=== PATIENT | female | born 1960 | race Caucasian/White ===

== ENCOUNTER → 2017-06-10 12:13 | Outpatient (CLI) | payer MEDICARE, SELFPAY | PROVIDERS: Visit Provider Family Medicine Geriatric Medicine | DX: I10 Essential (primary) hypertension (principal); E78.4 Other hyperlipidemia ==

== ENCOUNTER → 2018-02-03 11:54 | Outpatient (CLI) | payer MEDICARE, SELFPAY ==
--- NOTE | 2018-02-03 12:30 | RAD_ITS ---
STUDY: X-RAY - LUMBAR SPINE REASON FOR EXAM: Female, 57 years old. Low back pain TECHNIQUE: 3 view(s) of the lumbar spine were obtained. COMPARISON: None FINDINGS: Normal lumbar lordosis. There is no substantial scoliosis. There is a normal alignment of the vertebrae. Normal vertebral bodies and endplates. Normal disc space heights. The soft tissue structures are unremarkable. RAD/Lumbar Spine 2 or 3 Views IMPRESSION: Normal x-ray examination of the lumbar spine. Electronically Signed: Alonso Moncada MD at 23:55 EST , Service support ,
== END ==
PROVIDERS: Family Provider Family Medicine Geriatric Medicine; PCP Family Medicine Geriatric Medicine; Referring Provider Anesthesiology Pain Medicine; Visit Provider Anesthesiology Pain Medicine
DX: M54.5 Low back pain (principal)
CPT/HCPCS: 72100

== ENCOUNTER → 2018-03-31 10:31 | Outpatient (CLI) | payer MEDICARE, SELFPAY ==
[2018-03-31 11:14] LABS: Absolute Lymphocyte Count 4.19 X10^3/ul (0.83-4.51); Absolute Neutrophil Count 10.5 X10^3/uL (2.0-7.7); Basophil# 0.02 X10^3/uL; Basophil% 0.1 % (0-1); Eosinophil# 0.04 X10^3/uL; Eosinophils% 0.3 % (0-5); Hematocrit 42.3 % (37-47); Hemoglobin 13.2 g/dl (12.0-15.0); Lymphocyte # 4.19 X10^3/ul (4.0); Lymphocyte % 26.5 % (19-41); Mean Corp Hgb Conc 31.2 g/gl (32-36); Mean Corpuscular Volume 89.8 fL (81-99); Mean Platelet Vol. 9.7 fl (6.2-12.0); Monocyte# 1.03 X10^3/uL; Monocyte% 6.5 % (0-10); Neutrophil # 10.49 X10^3/uL (2.7-7.7); Neutrophil % 66.2 % (47-70); Platelet Count 327 K/mm3 (150-450); Red Blood Count 4.71 M/mm3 (4.2-5.4); White Blood Count 15.8 K/mm3 (4.4-11.0)
[2018-03-31 11:15] LABS: POSITIVE COUNT NO; POSITIVE DIFFERENTIAL NO; POSITIVE MORPHOLOGY NO
[2018-03-31 12:02] LABS: ALB/GLOB Ratio 0.8 RATIO (0.9-2.4); AST(SGOT) 18 U/L (15-37); Alanine Aminotransfer ALT/SGPT 36 U/L (13-56); Albumin, Serum 3.3 g/dL (3.2-5.0); Alkaline Phosphatase 97 U/L (45-117); Anion Gap 6 (5-15); BUN 10 mg/dL (7-18); BUN/Creat Ratio 13.2 RATIO (10-20); Calcium,Total 8.7 mg/dL (8.5-10.1); Chloride 105 mmol/L (98-107); Creatinine, Serum 0.76 mg/dL (0.55-1.02); EST Glomerular Filtration Rate 84 mL/min (>60); Est Glom Filt Rate - Afr Amer 101 mL/min (>60); Globulin 4.1 g/dL (2.2-4.2); Glucose 91 mg/dL (74-106); Potassium 3.5 mmol/L (3.5-5.1); Protein, Total 7.4 g/dL (6.4-8.2); Sodium Level 143 mmol/L (136-145); Thyroid Stim Hormone (TSH) 1.73 uIU/mL (0.358-3.74)
== END ==
PROVIDERS: Family Provider Family Medicine Geriatric Medicine; PCP Family Medicine Geriatric Medicine; Referring Provider Family Medicine Geriatric Medicine; Visit Provider Family Medicine Geriatric Medicine
DX: R07.9 Chest pain, unspecified (principal); R53.83 Other fatigue
CPT/HCPCS: 36415; 80053; 84443; 85025

== ENCOUNTER → 2018-05-03 09:49 | Outpatient (CLI) | payer MEDICARE, SELFPAY ==
[2016-07-03 10:56] VITALS: BMI 50.8
[2018-05-03 10:39] LABS: Amphetamine Urine VISTA NEGATIVE (<1000 ng/mL); Barbiturate Urine VISTA NEGATIVE (< 200 ng/mL); Benzodiazepine Urine VISTA NEGATIVE (< 200 ng/mL); Cocaine Urine VISTA NEGATIVE (< 300 ng/mL); Ecstacy Urine VISTA NEGATIVE (< 500 ng/mL); Methadone Urine VISTA NEGATIVE (< 300 ng/mL); PCP Urine VISTA NEGATIVE (< 25 ng/mL); THC Urine VISTA NEGATIVE (< 50 ng/mL); Vista UDS pH Range 6
[2018-05-04 10:37] LABS: Cancer Antigen 125 13.4 U/mL (0.0-38.1)
== END ==
PROVIDERS: Family Provider Family Medicine Geriatric Medicine; PCP Family Medicine Geriatric Medicine
DX: D39.10 Neoplasm of uncertain behavior of unspecified ovary (principal); F11.20 Opioid dependence, uncomplicated
CPT/HCPCS: 36415; 80307; 86304

== ENCOUNTER 2018-07-13 10:13 | Observation (INO) | payer MEDICARE, SELFPAY ==
[2018-07-13] VITALS (19 sets, daily range): BP systolic 126–170; BP diastolic 60–97; PULSE 68–111; RESP 12–18; TEMP 36.3–37.1; O2SAT 94–99; BMI 40.6; BMI 51.0
--- NOTE | 2018-07-13 10:26 | EKG12_ITS ---
Test Reason : CP ADMISSION EKG Blood Pressure : / mmHG Vent. Rate : 087 BPM Atrial Rate : 087 BPM P-R Int : 140 ms QRS Dur : 078 ms QT Int : 384 ms P-R-T Axes : 053 -33 051 degrees QTc Int : 462 ms Sinus rhythm with Premature atrial complexes with Aberrant conduction Left axis deviation Abnormal ECG When compared with ECG of 13-JUL-2018 10:18, MANUAL COMPARISON REQUIRED, DATA IS UNCONFIRMED Confirmed by FREDI BARBA, ROBERT ([id number]), makeup editor GIULIANO AMES ([id number]) on 07/15/2018 9:51:35 AM Referred By: Александр Batista Confirmed By:ROBERT RAI MD
--- NOTE | 2018-07-13 10:37 | RAD_ITS ---
STUDY: X-RAY CHEST REASON FOR EXAM: Female, 58 years old. Chest pain. TECHNIQUE: Single AP portable view of the chest. COMPARISON: Comparison is made with prior study dated December 16, 2013. FINDINGS: EKG electrodes are seen. Measurements of pressure congestion. Mild CHF. There is no demonstrated pleural abnormality. Normal size heart. Normal mediastinum and ana. Normal visualized pulmonary arteries. Normal visualized aortic arch and descending thoracic aorta. Normal visualized thoracic spine. Normal visualized ribs, clavicles, and shoulders. There is no demonstrated abnormality of the visualized soft tissue structures of the upper abdomen. RAD/Chest 1 View (Portable) IMPRESSION: Vascular congestion and mild CHF. Electronically Signed: Bravo Weeks, at 11:11 EDT , Service support ,
[2018-07-13] MEDS: 0.9% Normal Saline 1,000 ML 150 ML IV (10:38)
[2018-07-13] MEDS: Aspirin 81 MG TAB.CHEW 324 MG PO (10:38)
[2018-07-13 11:17] LABS: Absolute Lymphocyte Count 3.44 X10^3/ul (0.83-4.51); Absolute Neutrophil Count 8.1 X10^3/uL (2.0-7.7); Basophil# 0.03 X10^3/uL; Basophil% 0.2 % (0-1); Eosinophil# 0.12 X10^3/uL; Hematocrit 45.7 % (37-47); Hemoglobin 15.1 g/dl (12.0-15.0); Lymphocyte # 3.44 X10^3/ul (4.0); Lymphocyte % 27.7 % (19-41); Mean Corpuscular Hgb 29.6 pg (27.0-32.0); Mean Corpuscular Volume 89.6 fL (81-99); Mean Platelet Vol. 9.8 fl (6.2-12.0); Monocyte# 0.71 X10^3/uL; Monocyte% 5.7 % (0-10); Neutrophil # 8.11 X10^3/uL (2.7-7.7); Neutrophil % 65.2 % (47-70); Platelet Count 340 K/mm3 (150-450); RBC Distribution Width SD 45.3 fl (35.1-43.9); White Blood Count 12.4 K/mm3 (4.4-11.0)
[2018-07-13 11:21] LABS: POSITIVE COUNT NO; POSITIVE DIFFERENTIAL NO; POSITIVE MORPHOLOGY NO
[2018-07-13 11:27] LABS: D-Dimer Quantitative (DVT/PE) 0.58 FEU/ug/m (0.27-0.49)
[2018-07-13 11:28] LABS: Anion Gap 3 (5-15); BUN 8 mg/dL (7-18); BUN/Creat Ratio 9.7 RATIO (10-20); Calcium,Total 9.3 mg/dL (8.5-10.1); Chloride 103 mmol/L (98-107); Creatinine, Serum 0.82 mg/dL (0.55-1.02); EST Glomerular Filtration Rate 76 mL/min (>60); Est Glom Filt Rate - Afr Amer 92 mL/min (>60); Estimated Creatinine Clearance 56.43 ml/min; Glucose 124 mg/dL (74-106); Potassium 3.4 mmol/L (3.5-5.1); Sodium Level 138 mmol/L (136-145)
--- NOTE | 2018-07-13 11:39 | ED.VISSUMM ---
- ER Visit Summary Date of Service: 07/13/18 Chief Complaint: [Chest pain History of Present Illness: The patient is a 58 F [presents to the emergency department complaint of chest pain that started about 2 weeks ago. Patient describes a intermittent pressure and and pinching. Patient describes pain in her left arm that radiates to the chest. Patient feels short of breath with it and nauseated. Patient complains of diaphoresis. The discomfort is not always exertional. Patient denies recent travel or surgery. She denies recent illness. She has a history of hypertension. Patient's father had an [place] in his 40s.] Physical Examination: [HEENT-PERRLA, EOMI. Cranial nerves II through XII grossly intact. TMs clear. Mucous membranes moist. No adenopathy. Cardiovascular-regular rate and rhythm without murmur or ectopy Lungs-clear to auscultation, chest wall stable without crepitus or subcu emphysema Abdomen-normoactive bowel sounds, soft, nontender, no rebound or rigidity, no peritoneal signs. Extremities-intact ?4, normal range of motion, normal pulses, atraumatic] Test Results: [EKG obtained shows sinus rhythm with a ventricular rate of 106 bpm with no acute I segment changes. Patient had an occasional PAC. CBC with differential count 12.4, hemoglobin 15, hematocrit 46, platelets 340. Chemistries unremarkable. Troponin was less than 0.015. D-dimer was 0.58 which when corrected for patient's age is considered normal. Except for a slightly depressed potassium at 3.4.] Emergency Department Course and Treatment: [Patient received aspirin and her pain. Patient had an inch of Nitropaste placed to the anterior chest wall. ] Treatment Plan: [Admit for further workup and evaluation of her chest pain] Disposition: [Admit] Impression: [Chest pain-rule out acute coronary syndrome] This note was generated with [employer] dictation software. It may contain incorrect words, spelling, and punctuation that were not noted in review of the chart prior to signing ED Disposition - Plan for ED Patient: Referrals: Toan Moore Chi, MD [Primary Care Provider] -
--- NOTE | 2018-07-13 11:43 | ED.DCSUM_ITS ---
- ER Visit Summary Date of Service: 07/13/18 Chief Complaint: [Chest pain History of Present Illness: The patient is a 58 F [presents to the emergency department complaint of chest pain that started about 2 weeks ago. Patient describes a intermittent pressure and and pinching. Patient describes pain in her left arm that radiates to the chest. Patient feels short of breath with it and nauseated. Patient complains of diaphoresis. The discomfort is not always exertional. Patient denies recent travel or surgery. She denies recent illness. She has a history of hypertension. Patient's father had an [place] in his 40s.] Physical Examination: [HEENT-PERRLA, EOMI. Cranial nerves II through XII grossly intact. TMs clear. Mucous membranes moist. No adenopathy. Cardiovascular-regular rate and rhythm without murmur or ectopy Lungs-clear to auscultation, chest wall stable without crepitus or subcu emphysema Abdomen-normoactive bowel sounds, soft, nontender, no rebound or rigidity, no peritoneal signs. Extremities-intact ?4, normal range of motion, normal pulses, atraumatic] Test Results: [EKG obtained shows sinus rhythm with a ventricular rate of 106 bpm with no acute I segment changes. Patient had an occasional PAC. CBC with differential count 12.4, hemoglobin 15, hematocrit 46, platelets 340. Chemistries unremarkable. Troponin was less than 0.015. D-dimer was 0.58 which when corrected for patient's age is considered normal. Except for a slightly depressed potassium at 3.4.] Emergency Department Course and Treatment: [Patient received aspirin and her pain. Patient had an inch of Nitropaste placed to the anterior chest wall. ] Treatment Plan: [Admit for further workup and evaluation of her chest pain] Disposition: [Admit] Impression: [Chest pain-rule out acute coronary syndrome] This note was generated with [employer] dictation software. It may contain incorrect words, spelling, and punctuation that were not noted in review of the chart prior to signing ED Disposition - Plan for ED Patient: Referrals: Toan Moore Chi, MD [Primary Care Provider] -
[2018-07-13] MEDS: Nitroglycerin Oint 1 INCH PACKET TRANSDERM. (12:11)
--- NOTE | 2018-07-13 12:24 | CASEMGMT ---
RN CM Assessment Introduced role of RN CM to patient.? Patient is alert, oriented and able?to participate in RN CM Assessment. ?Care providers, pharmacy, and demographics verified. Presentation: Chest Pain Admit Dx: CP Re-Admit: No Barriers/Issues: None PCP: Toan Moore Chi Specialists: Pain Management- Dr Meza Preferred [facility]acy: [facility] Insurance: [employer] Medicare PPO Rx Benefit:?Yes ?LNOK: Reynaldo Mann LW/HPOA: No. States would like info from this admission. Living Arrangements:? Lives with in a Ranch Style Home, 5 steps to enter. ADL?s: Independent with ambulation and ADL's Transportation: Drives, will transport on DC DME: None HHC: None SNF: None Goal: Home DC PLAN: Home with no anticipated needs identified at this time. Joss Retana RNCM
--- NOTE | 2018-07-13 14:26 | EKG12_ITS ---
Test Reason : CP Blood Pressure : / mmHG Vent. Rate : 106 BPM Atrial Rate : 106 BPM P-R Int : 146 ms QRS Dur : 078 ms QT Int : 344 ms P-R-T Axes : 053 -29 059 degrees QTc Int : 456 ms Sinus tachycardia with Premature atrial complexes with Aberrant conduction Otherwise normal ECG Confirmed by FREDI BARBA, ROBERT ([id number]), video effects editor GIULIANO AMES ([id number]) on 07/15/2018 9:12:42 AM Referred By: Александр Batista Confirmed By:ROBERT RAI MD
--- NOTE | 2018-07-13 14:48 | PCM.HP.STD ---
Problem List (1) Chest pain Status: Acute Qualifiers: Chest pain type: unspecified Qualified Code(s): R07.9 - Chest pain, unspecified History of Present Illness Date of Admission: 07/13/18 Chief Complaint: chest pain The patient is a 58 year old F presents with several week history of chest pain. Chest pain tends to be more exertional. More left-sided going up her jaw and down her arm. It is associated with diaphoresis, shortness of breath and nausea. Patient is never had pain like this before. Patient was concerned and presented to the emergency room. In the emergency room, her workup was unremarkable. Patient being brought under observation for further cardiac evaluation. [] Past Medical History Medical History: Medical History (Last Updated 07/13/18 @ 14:49 by Александр Batista DO) Anxiety F41.9 HTN (hypertension) I10 Allergies amlodipine [From [facility]] Adverse Reaction (Verified 07/13/18 14:26) Other cough lisinopril Adverse Reaction (Verified 07/13/18 14:26) Other cough Home Medications: Ambulatory Orders Medication Instructions Recorded Cholecalciferol (Vitamin D3) 1,000 unit PO DAILY 12/16/13 [Vitamin D3] Losartan Potassium [Cozaar] 25 mg PO DAILY 12/16/13 [place]-3 Fatty Acids/Fish Oil [Fish 1 each PO DAILY 12/16/13 Oil 1,000 mg Capsule] Zolpidem Tartrate [Ambien] 10 mg PO QHS 07/03/16 Multivitamins,Therapeutic 1 tab PO DAILY 07/13/18 [Multivitamin] Paroxetine HCl 40 mg PO QHS 07/13/18 traMADol [Ultram] 50 mg PO BID PRN 07/13/18 Surgical History: no surgical history Psychiatric History: No pertinent psych hx RESIDENTIAL APPRAISER History: No pertinent RESIDENTIAL APPRAISER history, - - see HPI Smoking Status: Never smoker Tobacco Use: Non-smoker - *Family History Maternal History Items: Hypertension Review of Systems Constitutional: Reports: Malaise. Denies: Anorexia, Chills, Fever Eyes: Denies: Blurred vision, Double vision HEENT: Denies: Head Aches, Sinus Congestion, Sinus Drainage Cardiovascular: Reports: Chest Pain. Denies: Edema Respiratory: Reports: Shortness of breath upon exertion. Denies: Cough Gastrointestinal: Reports: Nausea. Denies: Abdominal Pain, Vomiting Genitourinary: Denies: Dysuria Musculoskeletal: Denies: Joint Pain, Joint Tenderness Skin: Denies: Rash, Wounds Neurological: Denies: Numbness, Tingling, Focal weakness Psychiatric: Denies: Anxiety, Depression Hematologic/ Lymphatic: Denies: Easy Bruising, Easy Bleeding, Hx of blood clot VTE Information - Inpt Only VTE Present on Admission: No VTE Mechan Device Prophylaxis: None VTE Pharm Prophylaxis ordered?: No Reason prophylaxis not ordered:: Procedure Not Indicated Patient Problems: Active and Suspected Problems Chest pain (Acute) - Physical Exam General: Alert, Cooperative, No apparent distress HEENT: Atraumatic, Normocephalic Oral: Moist Mucosa, No Gingival or Mucosal Lesions/ Ulcerations Neck: No Nodes, Thyroid Normal Size and Texture Lungs: Clear to auscultation, Normal air movement, No rhonchi, No wheeze Cardiovascular: Regular rate, Regular Rhythm, Normal S1, Normal S2, No murmurs Abdomen: Bowel Sounds Present, Soft, Non Tender, Non-Distended, No Hepato-splenomegaly Extremities: No edema, No Calf Tenderness Skin: No rashes, No breakdown Psych/Mental Status: Normal Affect, Appropriate Vital Signs Temp Pulse Resp BP Pulse Ox 37.1 C 78 16 144/77 H 96 07/13/18 14:21 07/13/18 14:21 07/13/18 14:21 07/13/18 14:21 07/13/18 14:21 Oxygen Flow Rate (L/min) 2 Oxygen Delivery Method Nasal Cannula Weight: 122.4 kg Body Mass Index (BMI) 51.0 Laboratory Tests Past 24 Hrs 07/13/18 07/13/18 07/13/18 10:20 10:20 10:20 WBC 12.4 H RBC 5.10 Hgb 15.1 H Hct 45.7 MCV 89.6 MCH 29.6 MCHC 33.0 RDW 14.0 RDW Differential 45.3 H Plt Count 340 MPV 9.8 Immature Gran % (Auto) 0.200 Neut % (Auto) 65.2 Lymph % (Auto) 27.7 [place] % (Auto) 5.7 Eos % (Auto) 1.0 Baso % (Auto) 0.2 Absolute Neuts (auto) 8.1 H Absolute Lymphs (auto) 3.44 Total Counted Not Reportable D-Dimer Quant (PE/DVT) 0.58 H* Sodium 138 Potassium 3.4 L Chloride 103 Carbon Dioxide 32.0 Anion Gap 3 L BUN 8 Creatinine 0.82 Estim Creat Clear Calc 56.43 Est GFR (MDRD) Af Amer 92 Est GFR (MDRD) Non-Af 76 BUN/Creatinine Ratio 9.7 L Glucose 124 H Calcium 9.3 Troponin I < 0.015 07/13/18 14:40 WBC RBC Hgb Hct MCV MCH MCHC RDW RDW Differential Plt Count MPV Immature Gran % (Auto) Neut % (Auto) Lymph % (Auto) [place] % (Auto) Eos % (Auto) Baso % (Auto) Absolute Neuts (auto) Absolute Lymphs (auto) Total Counted D-Dimer Quant (PE/DVT) Sodium Potassium Chloride Carbon Dioxide Anion Gap BUN Creatinine Estim Creat Clear Calc Est GFR (MDRD) Af Amer Est GFR (MDRD) Non-Af BUN/Creatinine Ratio Glucose Calcium Troponin I Pending Assessment/Plan All Active Problems Chest pain (Acute) Gynecologic disorder (Acute) Hypertension (Acute) 1. Chest pain Concern for cardiac etiology Cycle troponins and order stress test Aspirin based on the results of the stress test, patient will either be discharged home or cardiology will be consulted. 2. VTE prophylaxis: Low risk as patient is observation at this time. Therefore VTE prophylaxis not indicated. Code Visit OBSV E&M: 10261 Initial observation care L2
--- NOTE | 2018-07-13 14:52 | HP.PCM_ITS ---
Problem List (1) Chest pain Status: Acute Qualifiers: Chest pain type: unspecified Qualified Code(s): R07.9 - Chest pain, unspecified History of Present Illness Date of Admission: 07/13/18 Chief Complaint: chest pain The patient is a 58 year old F presents with several week history of chest pain. Chest pain tends to be more exertional. More left-sided going up her jaw and down her arm. It is associated with diaphoresis, shortness of breath and nausea. Patient is never had pain like this before. Patient was concerned and presented to the emergency room. In the emergency room, her workup was unremarkable. Patient being brought under observation for further cardiac evaluation. [] Past Medical History Medical History: Medical History (Last Updated 07/13/18 @ 14:49 by Александр Batista DO) Anxiety F41.9 HTN (hypertension) I10 Allergies amlodipine [From [facility]] Adverse Reaction (Verified 07/13/18 14:26) Other cough lisinopril Adverse Reaction (Verified 07/13/18 14:26) Other cough Home Medications: Ambulatory Orders Medication Instructions Recorded Cholecalciferol (Vitamin D3) 1,000 unit PO DAILY 12/16/13 [Vitamin D3] Losartan Potassium [Cozaar] 25 mg PO DAILY 12/16/13 [place]-3 Fatty Acids/Fish Oil [Fish 1 each PO DAILY 12/16/13 Oil 1,000 mg Capsule] Zolpidem Tartrate [Ambien] 10 mg PO QHS 07/03/16 Multivitamins,Therapeutic 1 tab PO DAILY 07/13/18 [Multivitamin] Paroxetine HCl 40 mg PO QHS 07/13/18 traMADol [Ultram] 50 mg PO BID PRN 07/13/18 Surgical History: no surgical history Psychiatric History: No pertinent psych hx 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 Denies: Anorexia, Chills, Fever Eyes: Denies: Blurred vision, Double vision HEENT: Denies: Head Aches, Sinus Congestion, Sinus Drainage Cardiovascular: Reports: Chest Pain. Denies: Edema Respiratory: Reports: Shortness of breath upon exertion. Denies: Cough Gastrointestinal: Reports: Nausea. Denies: Abdominal Pain, Vomiting Genitourinary: Denies: Dysuria Musculoskeletal: Denies: Joint Pain, Joint Tenderness Skin: Denies: Rash, Wounds Neurological: Denies: Numbness, Tingling, Focal weakness Psychiatric: Denies: Anxiety, Depression Hematologic/ Lymphatic: Denies: Easy Bruising, Easy Bleeding, Hx of blood clot VTE Information - Inpt Only VTE Present on Admission: No VTE Mechan Device Prophylaxis: None VTE Pharm Prophylaxis ordered?: No Reason prophylaxis not ordered:: Procedure Not Indicated Patient Problems: Active and Suspected Problems Chest pain (Acute) - Physical Exam General: Alert, Cooperative, No apparent distress HEENT: Atraumatic, Normocephalic Oral: Moist Mucosa, No Gingival or Mucosal Lesions/ Ulcerations Neck: No Nodes, Thyroid Normal Size and Texture Lungs: Clear to auscultation, Normal air movement, No rhonchi, No wheeze Cardiovascular: Regular rate, Regular Rhythm, Normal S1, Normal S2, No murmurs Abdomen: Bowel Sounds Present, Soft, Non Tender, Non-Distended, No Hepato- splenomegaly Extremities: No edema, No Calf Tenderness Skin: No rashes, No breakdown Psych/Mental Status: Normal Affect, Appropriate Vital Signs Temp Pulse Resp BP Pulse Ox 37.1 C 78 16 144/77 H 96 07/13/18 14:21 07/13/18 14:21 07/13/18 14:21 07/13/18 14:21 07/13/18 14:21 Oxygen Flow Rate (L/min) 2 Oxygen Delivery Method Nasal Cannula Weight: 122.4 kg Body Mass Index (BMI) 51.0 Laboratory Tests Past 24 Hrs 07/13/18 07/13/18 07/13/18 10:20 10:20 10:20 WBC 12.4 H RBC 5.10 Hgb 15.1 H Hct 45.7 MCV 89.6 MCH 29.6 MCHC 33.0 RDW 14.0 RDW Differential 45.3 H Plt Count 340 MPV 9.8 Immature Gran % (Auto) 0.200 Neut % (Auto) 65.2 Lymph % (Auto) 27.7 [place] % (Auto) 5.7 Eos % (Auto) 1.0 Baso % (Auto) 0.2 Absolute Neuts (auto) 8.1 H Absolute Lymphs (auto) 3.44 Total Counted Not Reportable D-Dimer Quant (PE/DVT) 0.58 H* Sodium 138 Potassium 3.4 L Chloride 103 Carbon Dioxide 32.0 Anion Gap 3 L BUN 8 Creatinine 0.82 Estim Creat Clear Calc 56.43 Est GFR (MDRD) Af Amer 92 Est GFR (MDRD) Non-Af 76 BUN/Creatinine Ratio 9.7 L Glucose 124 H Calcium 9.3 Troponin I < 0.015 07/13/18 14:40 WBC RBC Hgb Hct MCV MCH MCHC RDW RDW Differential Plt Count MPV Immature Gran % (Auto) Neut % (Auto) Lymph % (Auto) [place] % (Auto) Eos % (Auto) Baso % (Auto) Absolute Neuts (auto) Absolute Lymphs (auto) Total Counted D-Dimer Quant (PE/DVT) Sodium Potassium Chloride Carbon Dioxide Anion Gap BUN Creatinine Estim Creat Clear Calc Est GFR (MDRD) Af Amer Est GFR (MDRD) Non-Af BUN/Creatinine Ratio Glucose Calcium Troponin I Pending Assessment/Plan All Active Problems Chest pain (Acute) Gynecologic disorder (Acute) Hypertension (Acute) 1. Chest pain * Concern for cardiac etiology * Cycle troponins and order stress test * Aspirin * based on the results of the stress test, patient will either be discharged home or cardiology will be consulted. 2. VTE prophylaxis: Low risk as patient is observation at this time. Therefore VTE prophylaxis not indicated. Code Visit OBSV E&M: 63289 Initial observation care L2
[2018-07-13] MEDS: Acetaminophen 325 MG Tablet 650 MG PO (16:04)
[2018-07-13] MEDS: traMADol 50 MG Tablet PO (17:06)
--- NOTE | 2018-07-13 18:08 | NURSING ---
1600-agree with admission assessment and charting by kirstin osuna
[2018-07-13] MEDS: Paroxetine 20 MG Tablet 40 MG PO (20:42)
[2018-07-13] MEDS: Zolpidem Tartrate 5 MG Tablet PO (20:42)
[2018-07-14 02:35] VITALS: BP 124/80; PULSE 78; RESP 16; TEMP 36.7; O2SAT 95
[2018-07-14 03:02] VITALS: PULSE 74
[2018-07-14 05:39] LABS: Absolute Lymphocyte Count 2.52 X10^3/ul (0.83-4.51); Absolute Neutrophil Count 5.3 X10^3/uL (2.0-7.7); Basophil# 0.02 X10^3/uL; Basophil% 0.2 % (0-1); Eosinophil# 0.08 X10^3/uL; Eosinophils% 0.9 % (0-5); Hematocrit 42.4 % (37-47); Hemoglobin 13.5 g/dl (12.0-15.0); Lymphocyte # 2.52 X10^3/ul (4.0); Lymphocyte % 29.9 % (19-41); Mean Corp Hgb Conc 31.8 g/gl (32-36); Mean Corpuscular Hgb 28.1 pg (27.0-32.0); Mean Corpuscular Volume 88.1 fL (81-99); Mean Platelet Vol. 9.7 fl (6.2-12.0); Monocyte# 0.52 X10^3/uL; Monocyte% 6.2 % (0-10); Neutrophil # 5.29 X10^3/uL (2.7-7.7); Neutrophil % 62.7 % (47-70); Platelet Count 284 K/mm3 (150-450); RBC Distribution Width CV 14.1 % (11.6-14.6); RBC Distribution Width SD 45.6 fl (35.1-43.9); Red Blood Count 4.81 M/mm3 (4.2-5.4); White Blood Count 8.4 K/mm3 (4.4-11.0)
[2018-07-14 05:43] LABS: POSITIVE COUNT NO; POSITIVE DIFFERENTIAL NO; POSITIVE MORPHOLOGY NO
[2018-07-14 05:48] LABS: Prothrombin Time (Protime)PT. 13.3 SECONDS (11.7-14.9)
[2018-07-14 05:49] LABS: Partial Thromboplast Time 35.2 Seconds (24.1-36.2)
[2018-07-14 05:54] LABS: Anion Gap 3 (5-15); BUN 11 mg/dL (7-18); BUN/Creat Ratio 14.1 RATIO (10-20); Calcium,Total 8.6 mg/dL (8.5-10.1); Chloride 104 mmol/L (98-107); Cholesterol 176 mg/dL (200); Creatinine, Serum 0.78 mg/dL (0.55-1.02); EST Glomerular Filtration Rate 81 mL/min (>60); Est Glom Filt Rate - Afr Amer 97 mL/min (>60); Estimated Creatinine Clearance 59.32 ml/min; Glucose 103 mg/dL (74-106); High Density Lipoprotein 53 mg/dL; Potassium 3.9 mmol/L (3.5-5.1); Sodium Level 139 mmol/L (136-145); Triglycerides 104 mg/dL; Very Low Density Lipoprotein 21 mg/dL (5-40)
--- NOTE | 2018-07-14 05:55 | EKG12_ITS ---
Test Reason : Blood Pressure : / mmHG Vent. Rate : 080 BPM Atrial Rate : 080 BPM P-R Int : 142 ms QRS Dur : 080 ms QT Int : 406 ms P-R-T Axes : 056 -29 056 degrees QTc Int : 468 ms Sinus rhythm with Premature atrial complexes with Aberrant conduction Otherwise normal ECG When compared with ECG of 13-JUL-2018 14:50, MANUAL COMPARISON REQUIRED, DATA IS UNCONFIRMED Confirmed by FREDI BARBA, ROBERT ([id number]), photo editor GIULIANO AMES ([id number]) on 07/15/2018 9:40:07 AM Referred By: Александр Batista Confirmed By:ROBERT RAI MD
[2018-07-14 06:16] VITALS: BP 134/80; PULSE 79; RESP 16; TEMP 36.6; O2SAT 94
[2018-07-14] MEDS: 0.9% NaCl Peripheral Flush Adult/Peds IV (06:19)
[2018-07-14] MEDS: Losartan Potassium 25 MG Tablet PO ×2 (06:19)
[2018-07-14] MEDS: Aspirin E.C. 81 MG Tablet PO (06:22)
[2018-07-14 06:59] VITALS: PULSE 78
[2018-07-14 12:11] VITALS: PULSE 84
[2018-07-14 12:22] VITALS: BP 144/83; PULSE 83; RESP 16; TEMP 36.9; O2SAT 97
--- NOTE | 2018-07-14 13:37 | DCINST_ITS ---
- Discharge Diagnoses Current Active Problems: Current Active and Chronic Problems (Last Updated 07/13/18 @ 14:49 by Александр Batista DO) Chest pain (Acute) You will use the following diet at home:: No restrictions Your food should be the consistency of: Regular Discharge Activity: Return to Normal Activity Call your doctor if you observe: Fever of 101 or Higher, Shortness of breath, Dizziness, Fainting spells, Chest pain Instructions: ED Chest Pain NonCardiac Additional Instructions: check blood pressure twice daily and as needed, keep a record to present to your primary care provider. Allergies/Adverse Reactions: Allergies amlodipine [From [facility]] Adverse Reaction (Verified 07/13/18 14:26) Other cough lisinopril Adverse Reaction (Verified 07/13/18 14:26) Other cough Medications to take at Discharge Cholecalciferol (Vitamin D3) [Vitamin D3] 1,000 unit PO DAILY 12/16/13 Losartan Potassium [Cozaar] 25 mg PO DAILY 12/16/13 [place]-3 Fatty Acids/Fish Oil [Fish Oil 1,000 mg Capsule] 1 each PO DAILY 12/16/13 Zolpidem Tartrate [Ambien] 10 mg PO QHS 07/03/16 Multivitamins,Therapeutic [Multivitamin] 1 tab PO DAILY 07/13/18 Paroxetine HCl 40 mg PO QHS 07/13/18 traMADol [Ultram] 50 mg PO BID PRN 07/13/18 Primary Care Physician: Toan Moore Chi, MD [Primary Care Provider] - Within 2 Weeks Test Results: Test results from this visit will be discussed in further detail at your follow- up appointment, if applicable. Proposed Discharge Date: 07/14/18
--- NOTE | 2018-07-14 13:37 | PCM.DC.SUM ---
Discharge Date and Diagnosis - Problem List Patient Problems: Active and Suspected Problems (Last Updated 07/13/18 @ 14:49 by Александр Batista DO) Chest pain (Acute) Date of Admission: 07/13/18 Date of Discharge: 07/14/18 - Primary Discharge Diagnosis Active and Suspected Problems (Last Updated 07/13/18 @ 14:49 by Александр Batista DO) Chest pain (Acute) - Secondary Discharge Diagnosis Chronic Problems (Last Updated 07/13/18 @ 14:49 by Александр Batista DO) Hypertension (Chronic) Gynecologic disorder (Chronic) Hospital Course and Treatment Imaging Results: 07/14/18 05:55 Nuclear Stress Test - Chemical [NM] AM (NON MEDS) Operations: None Procedures: Stress test Summary of Care Provided: The patient is a 58 year old F presents with chest pain. Chest pain is left-sided and right upper neck and down her left arm. Vision was brought in and troponins cycled, which were negative, and a stress test which was also negative. She has been chest pain-free since arrival. Blood pressure was slightly elevated in the 170 systolic upon arrival. Unclear if this was a concerning factor to her chest pain or not but I advised patient to check her blood pressure twice daily at home and as needed and keep a record to provide to her PCP. No additional workup is necessary at this time. [] Patient Problems: Active and Suspected Problems (Last Updated 07/13/18 @ 14:49 by Александр Batista DO) Chest pain (Acute) - Physical Exam General: Alert, No apparent distress HEENT: Atraumatic, Normocephalic Oral: Moist Mucosa, No Gingival or Mucosal Lesions/ Ulcerations Psych/Mental Status: Normal Affect, Appropriate Vital Signs Temp Pulse Resp BP Pulse Ox 36.9 C 83 16 144/83 H 97 07/14/18 12:22 07/14/18 12:22 07/14/18 12:22 07/14/18 12:22 07/14/18 12:22 Oxygen Flow Rate (L/min) 2 Oxygen Delivery Method Room Air Weight: 122.4 kg Body Mass Index (BMI) 51.0 Intake and Output for Last 24 Hours 07/12/18 07/13/18 07/14/18 23:59 23:59 23:59 Intake Total 540 / 540 Balance 540 / 540 Laboratory Tests Past 24 Hrs 07/13/18 07/13/18 07/14/18 14:40 17:31 05:20 WBC 8.4 RBC 4.81 Hgb 13.5 Hct 42.4 MCV 88.1 MCH 28.1 MCHC 31.8 L RDW 14.1 RDW Differential 45.6 H Plt Count 284 MPV 9.7 Immature Gran % (Auto) 0.100 Neut % (Auto) 62.7 Lymph % (Auto) 29.9 [place] % (Auto) 6.2 Eos % (Auto) 0.9 Baso % (Auto) 0.2 Absolute Neuts (auto) 5.3 Absolute Lymphs (auto) 2.52 Total Counted Not Reportable PT INR APTT Sodium Potassium Chloride Carbon Dioxide Anion Gap BUN Creatinine Estim Creat Clear Calc Est GFR (MDRD) Af Amer Est GFR (MDRD) Non-Af BUN/Creatinine Ratio Glucose Calcium Troponin I < 0.015 < 0.015 Triglycerides Cholesterol LDL Cholesterol VLDL Cholesterol HDL Cholesterol 07/14/18 07/14/18 05:20 05:20 WBC RBC Hgb Hct MCV MCH MCHC RDW RDW Differential Plt Count MPV Immature Gran % (Auto) Neut % (Auto) Lymph % (Auto) [place] % (Auto) Eos % (Auto) Baso % (Auto) Absolute Neuts (auto) Absolute Lymphs (auto) Total Counted PT 13.3 INR 1.0 APTT 35.2 Sodium 139 Potassium 3.9 Chloride 104 Carbon Dioxide 32.0 Anion Gap 3 L BUN 11 Creatinine 0.78 Estim Creat Clear Calc 59.32 Est GFR (MDRD) Af Amer 97 Est GFR (MDRD) Non-Af 81 BUN/Creatinine Ratio 14.1 Glucose 103 Calcium 8.6 Troponin I Triglycerides 104 Cholesterol 176 LDL Cholesterol 102 VLDL Cholesterol 21 HDL Cholesterol 53 Discharge Diet: No Restrictions Discharge Activity: Return to Normal Activity Call your doctor if you observe: Fever of 101 or Higher, Shortness of breath, Dizziness, Fainting spells, Chest pain Home Medications: Medications to take at Discharge Cholecalciferol (Vitamin D3) [Vitamin D3] 1,000 unit PO DAILY 12/16/13 Losartan Potassium [Cozaar] 25 mg PO DAILY 12/16/13 [place]-3 Fatty Acids/Fish Oil [Fish Oil 1,000 mg Capsule] 1 each PO DAILY 12/16/13 Zolpidem Tartrate [Ambien] 10 mg PO QHS 07/03/16 Multivitamins,Therapeutic [Multivitamin] 1 tab PO DAILY 07/13/18 Paroxetine HCl 40 mg PO QHS 07/13/18 traMADol [Ultram] 50 mg PO BID PRN 07/13/18 Primary Care Physician: Toan Moore Chi, MD [Primary Care Provider] - Within 2 Weeks Patient Instructions: ED Chest Pain NonCardiac Disposition: Home Minutes spent on discharge:: 24 Patient Condition:: Good Medical Necessity - Tobacco Use Smoking Status: Never smoker Tobacco Use: Non-smoker Meaningful Use Info Meaningful Use Diagnoses (Choose all that apply): None applicable Code Visit OBSV E&M: 43229 Observation care discharge
--- NOTE | 2018-07-14 19:09 | STRESSREP_ITS ---
Stress Test Report Pharmacologic myocardial perfusion stress test. 58-year-old lady with a history of chest pain. Stress protocol: Resting EKG demonstrates normal sinus rhythm with a rate of 88 bpm normal intervals are noted resting blood pressure 132/90 mmHg. 0.4 mg of regadenoson was infused per usual protocol followed by rapid intravenous saline flush injection continuous EKG monitoring was performed. The maximum heart rate was 116 bpm which was 71% of maximum predicted heart rate the maximum workload was 1 metabolic equivalent. At rest there were no ST or T wave changes noted suggest ischemia at peak infusion nonspecific ST-T wave changes were noted with no meet the criteria for ischemia. No clinical angina was noted. The resting blood pr essure 132/90 mmHg with a final blood pressure 148/84 mmHg. Myocardial perfusion protocol. 12.0 mCi of technetium 99m sestamibi was injected at rest. 0.4 mg of regadenoson was infused per usual protocol peak infusion 35.9 mCi of technetium 99m sestamibi was injected stress images were obtained stress and rest images were reconstructed and compared in the short axis vertical long horizontal long axis. Gated images were also obtained. Perfusion SPECT analysis: Review of the stress images demonstrated normal perfusion noted in all areas of myocardium except for a tiny portion of the apex which was present on the stress and rest images to a nearly similar extent suggestive of apical striping rather than ischemia. The gated ejection fraction was noted to be 71%. Conclusion: Normal pharmacologic myocardial perfusion stress test. Preserved ejection fraction.
== END 2018-07-14 13:37 | disposition home or self-care (01) ==
LOC: ED 11:14 → PCU 13:17
PROVIDERS: Emergency Provider Emergency Medicine; Family Provider Family Medicine Geriatric Medicine; PCP Family Medicine Geriatric Medicine
DX: R07.89 Other chest pain (principal); R06.02 Shortness of breath; R11.0 Nausea; I10 Essential (primary) hypertension; Z82.49 Family history of ischemic heart disease and other diseases of the circulatory system; Z79.899 Other long term (current) drug therapy; F41.9 Anxiety disorder, unspecified
CPT/HCPCS: 36415; 71045; 78452; 80048; 80061; 84484; 85025; 85379; 85610; 85730; 93005; 93017; 96360; 96361; 99218; 99285; A9500; J7030; A4216; G0378; J2785

== ENCOUNTER → 2018-10-12 | Outpatient (CLI) | payer MEDICARE, SELFPAY ==
[2018-07-13 14:20] VITALS: BMI 51.0
[2018-10-12 12:43] LABS: Hemoglobin A1c 5.9 % (4.2-6.3)
[2018-10-12 12:47] LABS: Vitamin B12 1060 pg/mL (211-911)
[2018-10-12 12:51] LABS: AST(SGOT) 22 U/L (15-37); Alanine Aminotransfer ALT/SGPT 36 U/L (13-56); Albumin, Serum 3.4 g/dL (3.2-5.0); Alkaline Phosphatase 104 U/L (45-117); Bilirubin, Direct 0.08 mg/dL (0.00-0.30); Ferritin 70 ng/mL (8-252); Globulin 4.2 g/dL (2.2-4.2); Iron 57 ug/dL (50-170); Protein, Total 7.6 g/dL (6.4-8.2)
[2018-10-12 13:47] LABS: Iron Binding Capacity,Total 344 ug/dL (250-450); PERCENT IRON SATURATION 16.6 % (15.0-55.0)
[2018-10-15 11:14] LABS: Vitamin B1, Thiamine 183.6 nmol/L (66.5-200.0)
== END | disposition home or self-care (01) ==
PROVIDERS: Family Provider Family Medicine Geriatric Medicine; PCP Family Medicine Geriatric Medicine
DX: D39.10 Neoplasm of uncertain behavior of unspecified ovary (principal); E61.1 Iron deficiency; I10 Essential (primary) hypertension; E55.9 Vitamin D deficiency, unspecified; E51.9 Thiamine deficiency, unspecified; E53.8 Deficiency of other specified B group vitamins; R73.9 Hyperglycemia, unspecified
CPT/HCPCS: 36415; 80076; 82306; 82607; 82728; 83036; 83540; 83550; 84425; 86304

== ENCOUNTER → 2018-10-13 | Outpatient (CLI) | payer MEDICARE, SELFPAY ==
[2018-07-13 14:20] VITALS: BMI 51.0
[2018-10-13 12:23] LABS: Vitamin D,25 Hydroxy 29.6 ng/mL (29.95-100.01)
[2018-10-13 12:28] LABS: ALB/GLOB Ratio 0.8 RATIO (0.9-2.4); AST(SGOT) 22 U/L (15-37); Alanine Aminotransfer ALT/SGPT 40 U/L (13-56); Albumin, Serum 3.5 g/dL (3.2-5.0); Alkaline Phosphatase 105 U/L (45-117); Anion Gap 8 (5-15); BUN 12 mg/dL (7-18); BUN/Creat Ratio 14.8 RATIO (10-20); Calcium,Total 9.1 mg/dL (8.5-10.1); Chloride 103 mmol/L (98-107); Cholesterol 180 mg/dL (200); Creatinine, Serum 0.81 mg/dL (0.55-1.02); EST Glomerular Filtration Rate 77 mL/min (>60); Est Glom Filt Rate - Afr Amer 93 mL/min (>60); Globulin 4.4 g/dL (2.2-4.2); Glucose 110 mg/dL (74-106); High Density Lipoprotein 45 mg/dL; Potassium 3.6 mmol/L (3.5-5.1); Protein, Total 7.9 g/dL (6.4-8.2); Sodium Level 142 mmol/L (136-145); Thyroid Stim Hormone (TSH) 0.82 uIU/mL (0.358-3.74); Triglycerides 148 mg/dL; Very Low Density Lipoprotein 30 mg/dL (5-40)
[2018-10-13 12:42] LABS: Absolute Lymphocyte Count 2.47 X10^3/uL (0.83-4.51); Absolute Neutrophil Count 6.7 X10^3/uL (2.0-7.7); Basophil# 0.04 X10^3/uL; Basophil% 0.4 % (0-1); Hematocrit 44.4 % (37-47); Lymphocyte # 2.47 X10^3/ul (4.0); Lymphocyte % 24.7 % (19-41); Mean Corp Hgb Conc 31.5 g/dL (32-36); Mean Corpuscular Hgb 27.9 pg (27.0-32.0); Mean Corpuscular Volume 88.6 fL (81-99); Mean Platelet Vol. 10.3 fl (6.2-12.0); Monocyte# 0.62 X10^3/uL; Monocyte% 6.2 % (0-10); NRBC Flagged by Analyzer 0 % (0-5); Neutrophil # 6.73 X10^3/uL (2.7-7.7); Neutrophil % 67.5 % (47-70); Platelet Count 315 K/mm3 (150-450); RBC Distribution Width SD 45.1 fl (35.1-43.9); Red Blood Count 5.01 M/mm3 (4.2-5.4)
== END | disposition home or self-care (01) ==
LOC: POLAB3 08:56
PROVIDERS: Family Provider Family Medicine Geriatric Medicine; PCP Family Medicine Geriatric Medicine; Visit Provider Family Medicine Geriatric Medicine
DX: E55.9 Vitamin D deficiency, unspecified (principal); E78.5 Hyperlipidemia, unspecified; I10 Essential (primary) hypertension
CPT/HCPCS: 36415; 80053; 80061; 82306; 84443; 85025

== ENCOUNTER → 2018-11-17 | Outpatient (CLI) | payer MEDICARE, SELFPAY ==
[2018-07-13 14:20] VITALS: BMI 51.0
[2018-11-17 12:41] LABS: Amphetamine Urine VISTA NEGATIVE (<1000 ng/mL); Barbiturate Urine VISTA NEGATIVE (< 200 ng/mL); Benzodiazepine Urine VISTA NEGATIVE (< 200 ng/mL); Cocaine Urine VISTA NEGATIVE (< 300 ng/mL); Ecstacy Urine VISTA NEGATIVE (< 500 ng/mL); Methadone Urine VISTA NEGATIVE (< 300 ng/mL); PCP Urine VISTA NEGATIVE (< 25 ng/mL); THC Urine VISTA NEGATIVE (< 50 ng/mL); Vista UDS pH Range 6
== END | disposition home or self-care (01) ==
PROVIDERS: Family Provider Family Medicine Geriatric Medicine; PCP Family Medicine Geriatric Medicine; Referring Provider Anesthesiology Pain Medicine; Visit Provider Anesthesiology Pain Medicine
DX: F11.20 Opioid dependence, uncomplicated (principal)
CPT/HCPCS: 80307

== ENCOUNTER → 2018-11-24 | Outpatient (CLI) | payer MEDICARE, SELFPAY ==
[2018-07-13 14:20] VITALS: BMI 51.0
[2018-11-24 11:04] LABS: Absolute Lymphocyte Count 2.42 X10^3/uL (0.83-4.51); Basophil# 0.03 X10^3/uL; Basophil% 0.3 % (0-1); Eosinophil# 0.07 X10^3/uL; Eosinophils% 0.6 % (0-5); Hemoglobin 14.3 g/dL (12.0-15.0); Lymphocyte # 2.42 X10^3/ul (4.0); Lymphocyte % 21.4 % (19-41); Mean Corp Hgb Conc 31.8 g/dL (32-36); Mean Corpuscular Hgb 28.5 pg (27.0-32.0); Mean Corpuscular Volume 89.8 fL (81-99); Mean Platelet Vol. 9.5 fl (6.2-12.0); Monocyte# 0.75 X10^3/uL; Monocyte% 6.6 % (0-10); NRBC Flagged by Analyzer 0 % (0-5); Neutrophil # 7.97 X10^3/uL (2.7-7.7); Neutrophil % 70.7 % (47-70); Platelet Count 353 K/mm3 (150-450); RBC Distribution Width CV 13.7 % (11.6-14.6); Red Blood Count 5.01 M/mm3 (4.2-5.4); White Blood Count 11.3 K/mm3 (4.4-11.0)
[2018-11-24 11:14] LABS: Anion Gap 5 (5-15); BUN 9 mg/dL (7-18); BUN/Creat Ratio 11.3 RATIO (10-20); Calcium,Total 9.3 mg/dL (8.5-10.1); Chloride 102 mmol/L (98-107); Creatinine, Serum 0.79 mg/dL (0.55-1.02); EST Glomerular Filtration Rate 79 mL/min (>60); Est Glom Filt Rate - Afr Amer 95 mL/min (>60); Glucose 96 mg/dL (74-106); Potassium 3.6 mmol/L (3.5-5.1); Sodium Level 139 mmol/L (136-145)
== END | disposition home or self-care (01) ==
LOC: POLAB3 10:18
PROVIDERS: Family Provider Family Medicine Geriatric Medicine; PCP Family Medicine Geriatric Medicine; Visit Provider Family Medicine Geriatric Medicine
DX: E23.2 Diabetes insipidus (principal)
CPT/HCPCS: 36415; 80048; 85025

== ENCOUNTER → 2018-11-25 | Outpatient (CLI) | payer MEDICARE, SELFPAY ==
[2018-07-13 14:20] VITALS: BMI 51.0
--- NOTE | 2018-11-25 08:07 | BI_ITS ---
MAMMOGRAPHY - BILATERAL SCREENING REASON FOR EXAM: Female, 58 years old. Routine annual screening examination. PERTINENT HISTORY: Non-contributory. Remote left needle biopsy. TECHNIQUE: Digital bilateral breast penelope (3D mammographic acquisition) in the CC and MLO projections. 2-D mediolateral oblique (MLO) and craniocaudad (CC) views of both breasts were obtained. CAD: Full Field Digital Mammography with Computer Added Detection was performed. COMPARISON: Comparison is made with prior outside examination dated October 11, 2015. FINDINGS: Breast Composition: The breasts are almost entirely fatty. There are no dominant masses or suspicious calcifications. No other significant abnormalities are identified. There has been no significant change since the prior study. BI/SCREEN MAMM (CAD) W/PENELOPE BILAT IMPRESSION: Stable bilateral screening mammogram. Yearly follow-up mammogram recommended. (A) ASSESSMENT CATEGORY: BIRADS Category 1: Negative. A letter regarding these results will be sent to the patient by the facility within 30 days. Approximately 10% of breast cancers are not detected by mammography. A normal mammogram should not delay biopsy of a clinically suspicious abnormality. [id number] Electronically Signed: Bravo Weeks, at 9:23 EDT , Service support ,
== END | disposition home or self-care (01) ==
LOC: OPBI 08:06
PROVIDERS: Family Provider Family Medicine Geriatric Medicine; PCP Family Medicine Geriatric Medicine; Referring Provider Family Medicine Geriatric Medicine; Visit Provider Family Medicine Geriatric Medicine
DX: Z12.31 Encounter for screening mammogram for malignant neoplasm of breast (principal)
CPT/HCPCS: 77063; 77067

== ENCOUNTER → 2018-12-01 | Outpatient (CLI) | payer MEDICARE, SELFPAY ==
[2018-12-01 13:46] VITALS: BMI 51.0
--- NOTE | 2018-12-01 13:50 | RAD_ITS ---
STUDY: X-RAY - LEFT KNEE REASON FOR EXAM: Female, 58 years old. Pain TECHNIQUE: 3 view(s) of the knee. COMPARISON: None. FINDINGS: There is no evidence of fracture or dislocation. There are moderate tricompartmental degenerative changes which are most pronounced in the medial compartment. There are no radiodense foreign bodies. RAD/Knee 4 or More Views IMPRESSION: No fracture or dislocation in the left knee. Moderate tricompartmental degenerative changes which are most pronounced medially. Electronically Signed: Alexander Flores, at 20:50 EDT Tel , Service support ,
--- NOTE | 2018-12-01 13:50 | RAD_ITS ---
STUDY: X-RAY - RIGHT KNEE REASON FOR EXAM: Female, 58 years old. Pain TECHNIQUE: 3 view(s) of the knee. COMPARISON: None. FINDINGS: There is no evidence of fracture or dislocation. There are moderate tricompartmental degenerative changes which are most pronounced medially. There are no radiodense foreign bodies. RAD/Knee 4 or More Views IMPRESSION: No fracture or dislocation in the right knee. Moderate tricompartmental degenerative changes which are most pronounced medially. Electronically Signed: Alexander Flores, at 20:51 EDT Tel , Service support ,
== END | disposition home or self-care (01) ==
LOC: HPRAD 13:50
PROVIDERS: Family Provider Family Medicine Geriatric Medicine; PCP Family Medicine Geriatric Medicine; Referring Provider Orthopaedic Surgery; Visit Provider Orthopaedic Surgery
DX: M25.561 Pain in right knee (principal); M25.562 Pain in left knee
CPT/HCPCS: 73564

== ENCOUNTER → 2018-12-20 | Outpatient (CLI) | payer MEDICARE, SELFPAY ==
[2018-07-13 14:20] VITALS: BMI 51.0
== END | disposition home or self-care (01) ==
LOC: SL 23:47
PROVIDERS: Family Provider Family Medicine Geriatric Medicine; PCP Family Medicine Geriatric Medicine
DX: G47.33 Obstructive sleep apnea (adult) (pediatric) (principal)
CPT/HCPCS: 95810

== ENCOUNTER 2019-01-18 05:56 | Day surgery (SDC) | payer MEDICARE, SELFPAY ==
[2018-12-20 09:37] VITALS: BMI 51.0
[2019-01-18 06:33] VITALS: BP 109/70; PULSE 86; RESP 16; TEMP 36.6; O2SAT 98; BMI 50.0
[2019-01-18] MEDS: Lactated Ringers 1,000 ML 100 ML IV (06:43)
[2019-01-18] MEDS: Cefazolin 2 GM in 0.9% Normal Saline 100 ML IV (07:30)
--- NOTE | 2019-01-18 07:30 | BLA_PTH ---
PATIENT: JONELLE RUIZ LOC: [facility] U#:[id number] AGE/SX: 58/F ROOM: RE01/18/[address]: Dr. 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 Mild epithelial hyperplasia. Negative for malignancy. See comment. SJ:kira 01/19/19 COMMENT Detrusor muscle is also noted in the submitted specimen. Correlation with clinical, cystoscopy findings and appropriate follow up are necessary. MICROSCOPIC DESCRIPTION Slides are reviewed. GROSS DESCRIPTION Received in fixative is one container labeled with the patient's name and designated bladder biopsy. The specimen consists of four irregular fragments of shaw soft tissue that in aggregate measure 0.4 x 0.2 x 0.1 cm. The entire specimen is submitted in one cassette. / ILIANA:kira 01/18/19 TC:3 CPT: 56040
--- NOTE | 2019-01-18 07:42 | PCM.DC.URO ---
Discharge Diet: No Restrictions Discharge Activity: May not drive while taking narcotic pain medications. Call your doctor if you observe: Fever of 101 or Higher, Inability to urinate, Shortness of breath, Chest pain, Calf discomfort, Uncontrolled pain Allergies/Adverse Reactions: Allergies amlodipine [From [facility]] Adverse Reaction (Verified 01/18/19 06:32) Other cough lisinopril Adverse Reaction (Verified 01/18/19 06:32) Other cough Medications to take at Discharge RX: Cholecalciferol (Vitamin D3) [Vitamin D3] 1,000 unit PO DAILY 12/16/13 RX: Losartan Potassium [Cozaar] 25 mg PO DAILY 12/16/13 RX: Zolpidem Tartrate [Ambien] 10 mg PO QHS 07/03/16 RX: Multivitamins,Therapeutic [Multivitamin] 1 tab PO DAILY 07/13/18 RX: Paroxetine HCl 40 mg PO QHS 07/13/18 RX: traMADol [Ultram] 50 mg PO BID PRN 07/13/18 Primary Care Physician: Toan Moore Chi, MD [Primary Care Provider] - Test Results: Test results from this visit will be discussed in further detail at your follow-up appointment, if applicable. Please Follow Up With: Ebony Jose MD When: call for appt next week Proposed Discharge Date: 01/18/19
--- NOTE | 2019-01-18 07:43 | PCM.OPRPT ---
Problem List (1) Erythematous bladder mucosa Status: Acute (2) Urgency of urination Status: Acute (3) Frequency of micturition Status: Acute Report of Operation Date of Procedure: 01/18/19 Pre-Operative Diagnosis: erythematous bladder mucosa, urgency and frequency of urination Post-Operative Diagnosis: same Surgery/Procedure Performed:: cystoscopy, bladder biopsy with fulguration Description of Surgical Findings:: diffuse cystitis cystica. 4 biopsy specimens taken. Type of Anesthesia:: General Specimen's removed: bladder biopsy Description of Procedure: The patient is a 58-year-old female who presented to the office with lower urinary tract symptoms. On cystoscopic evaluation she was identified as having a diffusely erythematous bladder mucosa with cystitis cystica throughout. After discussing the risk benefits and alternatives, she agreed to proceed with evaluation with biopsy under anesthesia. Patient was taken to the operating room and placed on the operating room table. Anesthesia monitored the head, neck, airway, IV access and vital signs throughout the case. Once anesthesia was appropriately administered, the patient was placed into dorsal lithotomy position and was prepped and draped in usual sterile fashion. A cystourethroscopy was performed once again revealing erythematous mucosa and cystitis cystica. No papillary lesions, ulcerations or foreign bodies identified. In total 4 biopsies were taken from areas throughout the posterior and lateral bladder jose. These areas were then fulgurated for hemostatic control. The bladder was then emptied and she was awakened and taken to the recovery room in good condition. There were no complications during this procedure. Grafts/Implants Used: none - Complications none - Admit VTE Documentation VTE Present on Admission: Yes VTE Mechan Device Prophylaxis: SCD's VTE Pharm Prophylaxis ordered?: No Reason prophylaxis not ordered:: Treatment Not Indicated
[2019-01-18 08:06] VITALS: BP 109/70; BP 110/70; PULSE 90; RESP 16; TEMP 36.7; O2SAT 92
[2019-01-18 08:15] VITALS: BP 109/70; BP 114/64; PULSE 91; RESP 16; O2SAT 100
[2019-01-18 08:22] VITALS: BP 107/69; BP 109/70; PULSE 93; RESP 16; TEMP 36.6; O2SAT 96
[2019-01-18 09:19] VITALS: BP 102/69; BP 109/70; PULSE 81; RESP 16; TEMP 35.9; O2SAT 98
== END 2019-01-18 09:27 | disposition home or self-care (01) ==
LOC: SDC 05:57 → AC 05:58
PROVIDERS: Family Provider Family Medicine Geriatric Medicine; PCP Family Medicine Geriatric Medicine; Referring Provider Urology; Visit Provider Urology
PROC: 0TBB8ZX Excision of Bladder, Via Natural or Artificial Opening Endoscopic, Diagnostic (ICD-10-PCS; CPT 52204; principal; 2019-01-18 07:20)
DX: N30.90 Cystitis, unspecified without hematuria (principal); R35.0 Frequency of micturition; R35.1 Nocturia; N39.3 Stress incontinence (female) (male); N39.41 Urge incontinence; R39.15 Urgency of urination; F41.9 Anxiety disorder, unspecified; M06.9 Rheumatoid arthritis, unspecified; I10 Essential (primary) hypertension; G47.30 Sleep apnea, unspecified; Z79.899 Other long term (current) drug therapy
CPT/HCPCS: 52204; 88305; J7120; J2405

== ENCOUNTER 2019-02-06 13:32 | Emergency (ER) | payer MEDICARE, SELFPAY ==
[2019-02-06 13:32] VITALS: BP 144/85; PULSE 104; RESP 17; TEMP 36.8; O2SAT 97; BMI 49.2
--- NOTE | 2019-02-06 13:58 | ED.VISSUMM ---
- ER Visit Summary Date of Service: 02/06/19 Chief Complaint: [Rash] History of Present Illness: The patient is a 58 F [presents to the emergency department with a rash that started 2 days ago. Patient states that the rash is somewhat painful. Patient denies any recent illness. Patient states that she has not had any new medications other than a bladder medicine called Myrbetriq that she is been on for about 2 weeks. Patient denies urinary symptoms. She denies sore throat. She denies any new soaps or detergents.] Physical Examination: [HEENT-PERRLA, EOMI. Cranial nerves II through XII grossly intact. TMs clear. Mucous membranes moist. No adenopathy. Cardiovascular-regular rate and rhythm without murmur or ectopy Lungs-clear to auscultation, chest wall stable without crepitus or subcu emphysema Abdomen-normoactive bowel sounds, soft, nontender, no rebound or rigidity, no peritoneal signs. Skin exam-patient has multiple red raised almost nodular lesions involving the upper back as well as lower back. She has lesions on both lower extremities as well. Areas are tender to palpation. There are no vesicles or petechiae. Extremities-intact ?4, normal range of motion, normal pulses, atraumatic] Test Results: [None indicated] Emergency Department Course and Treatment: [She was given prednisone 40 mg p.o.] Treatment Plan: [I will treat patient with prednisone for 5 days and advised to follow-up with dermatology.] Disposition: [Discharged home in stable condition] Impression: [Dermatitis-etiology uncertain] This note was generated with [employer] dictation software. It may contain incorrect words, spelling, and punctuation that were not noted in review of the chart prior to signing ED Disposition - Plan for ED Patient: Referrals: Toan Moore Chi, MD [Primary Care Provider] -
--- NOTE | 2019-02-06 14:02 | ED.DEP ---
ED Disposition - Plan for ED Patient: Instructions: DERMATITIS, Non-Specific Prescriptions: Prednisone [Deltasone] 20 mg PO BID #10 tab Prescription Printed Referrals: Toan Moore Chi, MD [Primary Care Provider] - Kenroy Valerio MD [STAFF PHYSICIAN] - 3-5 Days
[2019-02-06] MEDS: predniSONE 20 MG Tablet 40 MG PO (14:10)
== END 2019-02-06 14:14 | disposition home or self-care (01) ==
LOC: ED 13:53
PROVIDERS: Emergency Provider Emergency Medicine; Family Provider Family Medicine Geriatric Medicine; PCP Family Medicine Geriatric Medicine
DX: L30.9 Dermatitis, unspecified (principal); I10 Essential (primary) hypertension
CPT/HCPCS: 99283

== ENCOUNTER → 2019-02-07 | Outpatient (CLI) | payer MEDICARE, SELFPAY ==
[2019-02-06 13:32] VITALS: BMI 49.2
[2019-02-07 14:02] LABS: M R Staph aureus DNA By PCR Negative (Negative); Probe Check PASS; Specimen Processing Control PASS; Staph aureus DNA By PCR NEGATIVE (Negative)
== END | disposition home or self-care (01) ==
LOC: POLAB3 11:58
PROVIDERS: Family Provider Family Medicine Geriatric Medicine; PCP Family Medicine Geriatric Medicine; Visit Provider Family Medicine Geriatric Medicine
DX: L30.9 Dermatitis, unspecified (principal); B95.62 Methicillin resistant Staphylococcus aureus infection as the cause of diseases classified elsewhere
CPT/HCPCS: 87070; 87205; 87640

== ENCOUNTER → 2019-04-20 10:01 | Outpatient (CLI) | payer MEDICARE, SELFPAY ==
[2019-04-20 12:16] LABS: Absolute Lymphocyte Count 2.21 X10^3/uL (0.83-4.51); Absolute Neutrophil Count 6.7 X10^3/uL (2.0-7.7); Basophil# 0.03 X10^3/uL; Basophil% 0.3 % (0-1); Eosinophil# 0.08 X10^3/uL; Eosinophils% 0.8 % (0-5); Hematocrit 45.2 % (37-47); Hemoglobin 13.8 g/dL (12.0-15.0); Lymphocyte # 2.21 X10^3/ul (4.0); Mean Corp Hgb Conc 30.5 g/dL (32-36); Mean Corpuscular Hgb 27.3 pg (27.0-32.0); Mean Corpuscular Volume 89.3 fL (81-99); Mean Platelet Vol. 9.7 fl (6.2-12.0); Monocyte# 0.59 X10^3/uL; Monocyte% 6.1 % (0-10); NRBC Flagged by Analyzer 0 % (0-5); Neutrophil # 6.65 X10^3/uL (2.7-7.7); Neutrophil % 69.4 % (47-70); Platelet Count 384 K/mm3 (150-450); RBC Distribution Width CV 14.6 % (11.6-14.6); RBC Distribution Width SD 47.6 fl (35.1-43.9); Red Blood Count 5.06 M/mm3 (4.2-5.4); White Blood Count 9.6 K/mm3 (4.4-11.0)
[2019-04-20 12:32] LABS: Vitamin D,25 Hydroxy 24.4 ng/mL (29.95-100.01)
[2019-04-20 12:33] LABS: ALB/GLOB Ratio 0.6 RATIO (0.9-2.4); AST(SGOT) 12 U/L (15-37); Alanine Aminotransfer ALT/SGPT 32 U/L (13-56); Alkaline Phosphatase 110 U/L (45-117); Anion Gap 3 (5-15); BUN 9 mg/dL (7-18); BUN/Creat Ratio 11.2 RATIO (10-20); Calcium,Total 9.3 mg/dL (8.5-10.1); Chloride 105 mmol/L (98-107); Cholesterol 192 mg/dL (200); Creatinine, Serum 0.81 mg/dL (0.55-1.02); EST Glomerular Filtration Rate 77 mL/min (>60); Est Glom Filt Rate - Afr Amer 94 mL/min (>60); Globulin 4.7 g/dL (2.2-4.2); Glucose 97 mg/dL (74-106); High Density Lipoprotein 55 mg/dL; Potassium 3.4 mmol/L (3.5-5.1); Protein, Total 7.7 g/dL (6.4-8.2); Sodium Level 141 mmol/L (136-145); Thyroid Stim Hormone (TSH) 0.98 uIU/mL (0.358-3.74); Triglycerides 92 mg/dL; Very Low Density Lipoprotein 18 mg/dL (5-40)
== END ==
PROVIDERS: PCP Family Medicine Geriatric Medicine; Visit Provider Family Medicine Geriatric Medicine
DX: I10 Essential (primary) hypertension (principal); E55.9 Vitamin D deficiency, unspecified; E78.5 Hyperlipidemia, unspecified
CPT/HCPCS: 36415; 80053; 80061; 82306; 84443; 85025

== ENCOUNTER → 2019-05-10 10:27 | Outpatient (CLI) | payer MEDICARE, SELFPAY ==
[2019-05-11 12:29] LABS: Cancer Antigen 125 13.2 U/mL (0.0-38.1)
== END ==
PROVIDERS: PCP Family Medicine Geriatric Medicine
DX: D39.10 Neoplasm of uncertain behavior of unspecified ovary (principal)
CPT/HCPCS: 36415; 86304

== ENCOUNTER → 2019-10-20 11:24 | Outpatient (CLI) | payer MEDICARE, SELFPAY ==
[2019-10-20 12:33] LABS: Absolute Lymphocyte Count 2.19 X10^3/uL (0.83-4.51); Absolute Neutrophil Count 6.1 X10^3/uL (2.0-7.7); Basophil# 0.02 X10^3/uL; Basophil% 0.2 % (0-1); Eosinophil# 0.11 X10^3/uL; Eosinophils% 1.2 % (0-5); Hematocrit 44.2 % (37-47); Hemoglobin 13.9 g/dL (12.0-15.0); Lymphocyte # 2.19 X10^3/ul (4.0); Lymphocyte % 24.3 % (19-41); Mean Corp Hgb Conc 31.4 g/dL (32-36); Mean Corpuscular Hgb 27.8 pg (27.0-32.0); Mean Corpuscular Volume 88.4 fL (81-99); Mean Platelet Vol. 10.5 fl (6.2-12.0); Monocyte# 0.61 X10^3/uL; Monocyte% 6.8 % (0-10); NRBC Flagged by Analyzer 0 % (0-5); Neutrophil # 6.08 X10^3/uL (2.7-7.7); Neutrophil % 67.3 % (47-70); Platelet Count 334 K/mm3 (150-450); RBC Distribution Width CV 14.6 % (11.6-14.6); RBC Distribution Width SD 46.7 fl (35.1-43.9)
[2019-10-20 12:47] LABS: Vitamin D,25 Hydroxy 53.9 ng/mL
[2019-10-20 13:02] LABS: ALB/GLOB Ratio 0.8 RATIO (0.9-2.4); AST(SGOT) 38 U/L (15-37); Alanine Aminotransfer ALT/SGPT 50 U/L (13-56); Albumin, Serum 3.5 g/dL (3.2-5.0); Alkaline Phosphatase 99 U/L (45-117); Anion Gap 3 (5-15); BUN 6 mg/dL (7-18); BUN/Creat Ratio 7.6 RATIO (10-20); Calcium,Total 9.4 mg/dL (8.5-10.1); Chloride 103 mmol/L (98-107); Cholesterol 162 mg/dL (200); Creatinine, Serum 0.79 mg/dL (0.55-1.02); EST Glomerular Filtration Rate 79 mL/min (>60); Est Glom Filt Rate - Afr Amer 96 mL/min (>60); Globulin 4.5 g/dL (2.2-4.2); Glucose 115 mg/dL (74-106); High Density Lipoprotein 48 mg/dL; Potassium 2.8 mmol/L (3.5-5.1); Sodium Level 140 mmol/L (136-145); Thyroid Stim Hormone (TSH) 0.71 uIU/mL (0.358-3.74); Triglycerides 95 mg/dL; Very Low Density Lipoprotein 19 mg/dL (5-40)
== END ==
PROVIDERS: PCP Family Medicine Geriatric Medicine; Visit Provider Family Medicine Geriatric Medicine
DX: E55.9 Vitamin D deficiency, unspecified (principal); E78.5 Hyperlipidemia, unspecified; I10 Essential (primary) hypertension
CPT/HCPCS: 36415; 80053; 80061; 82306; 84443; 85025

== ENCOUNTER → 2019-12-19 11:26 | Outpatient (CLI) | payer MEDICARE, SELFPAY ==
[2019-12-19 12:33] LABS: Absolute Lymphocyte Count 1.94 X10^3/uL (0.83-4.51); Absolute Neutrophil Count 4.8 X10^3/uL (2.0-7.7); Basophil# 0.03 X10^3/uL; Basophil% 0.4 % (0-1); Eosinophil# 0.11 X10^3/uL; Eosinophils% 1.5 % (0-5); Hematocrit 41.7 % (37-47); Hemoglobin 13.4 g/dL (12.0-15.0); Lymphocyte # 1.94 X10^3/ul (4.0); Lymphocyte % 26.5 % (19-41); Mean Corp Hgb Conc 32.1 g/dL (32-36); Mean Corpuscular Hgb 28.5 pg (27.0-32.0); Mean Corpuscular Volume 88.5 fL (81-99); Mean Platelet Vol. 10.1 fl (6.2-12.0); Monocyte# 0.43 X10^3/uL; Monocyte% 5.9 % (0-10); NRBC Flagged by Analyzer 0 % (0-5); Neutrophil # 4.81 X10^3/uL (2.7-7.7); Neutrophil % 65.6 % (47-70); Platelet Count 314 K/mm3 (150-450); RBC Distribution Width CV 14.6 % (11.6-14.6); RBC Distribution Width SD 47.8 fl (35.1-43.9); Red Blood Count 4.71 M/mm3 (4.2-5.4); White Blood Count 7.3 K/mm3 (4.4-11.0)
[2019-12-19 13:05] LABS: Vitamin B12 1262 pg/mL (211-911); Vitamin D,25 Hydroxy 43.4 ng/mL
[2019-12-19 13:15] LABS: ALB/GLOB Ratio 0.8 RATIO (0.9-2.4); AST(SGOT) 25 U/L (15-37); Alanine Aminotransfer ALT/SGPT 31 U/L (13-56); Albumin, Serum 3.3 g/dL (3.2-5.0); Alkaline Phosphatase 116 U/L (45-117); Anion Gap 5 (5-15); BUN 9 mg/dL (7-18); Chloride 104 mmol/L (98-107); Creatinine, Serum 0.82 mg/dL (0.55-1.02); EST Glomerular Filtration Rate 76 mL/min (>60); Est Glom Filt Rate - Afr Amer 92 mL/min (>60); Ferritin 95 ng/mL (8-252); Globulin 4.4 g/dL (2.2-4.2); Glucose 139 mg/dL (74-106); Iron 52 ug/dL (50-170); Potassium 3.5 mmol/L (3.5-5.1); Protein, Total 7.7 g/dL (6.4-8.2); Sodium Level 139 mmol/L (136-145)
[2019-12-22 14:09] LABS: Vitamin B1, Thiamine 151.2 nmol/L (66.5-200.0)
[2019-12-22 14:37] LABS: Copper, Serum or Plasma 163 ug/dL (72-166)
== END ==
PROVIDERS: PCP Family Medicine Geriatric Medicine; Visit Provider Family Medicine Geriatric Medicine
DX: E87.6 Hypokalemia (principal); D64.9 Anemia, unspecified; E55.9 Vitamin D deficiency, unspecified; E53.8 Deficiency of other specified B group vitamins; K90.9 Intestinal malabsorption, unspecified; Z98.84 Bariatric surgery status
CPT/HCPCS: 36415; 80053; 82306; 82525; 82607; 82728; 82746; 83540; 83970; 84425; 85025

== ENCOUNTER → 2020-02-09 10:00 | Outpatient (CLI) | payer MEDICARE, SELFPAY ==
[2019-12-21 07:53] VITALS: BMI 44.2
--- NOTE | 2020-02-09 10:02 | BI_ITS ---
MAMMOGRAPHY - BILATERAL SCREENING REASON FOR EXAM: Female, 59 years old. Routine annual screening examination. PERTINENT HISTORY: Non-contributory. TECHNIQUE: Digital bilateral breast penelope (3D mammographic acquisition) in the CC and MLO projections. 2-D mediolateral oblique (MLO) and craniocaudad (CC) views of both breasts were obtained. CAD: Full Field Digital Mammography with Computer Added Detection was performed. COMPARISON: Comparison is made with prior study dated 11/25/2018. FINDINGS: Breast Composition: The breasts are almost entirely fatty. There are no dominant masses or suspicious calcifications. No other significant abnormalities are identified. There has been no significant change since the prior study. BI/SCREEN MAMM (CAD) W/PENELOPE BILAT IMPRESSION: Stable bilateral screening mammogram. Yearly follow-up mammogram recommended. (A) ASSESSMENT CATEGORY: BIRADS Category 1: Negative. A letter regarding these results will be sent to the patient by the facility within 30 days. Approximately 10% of breast cancers are not detected by mammography. A normal mammogram should not delay biopsy of a clinically suspicious abnormality. [id number] Electronically Signed: Bravo Weeks, at 11:09 EST , Service support ,
== END ==
PROVIDERS: PCP Family Medicine Geriatric Medicine; Referring Provider Family Medicine Geriatric Medicine; Visit Provider Family Medicine Geriatric Medicine
DX: Z12.31 Encounter for screening mammogram for malignant neoplasm of breast (principal)
CPT/HCPCS: 77063; 77067

== ENCOUNTER → 2020-03-27 09:31 | Outpatient (CLI) | payer MEDICARE, SELFPAY ==
[2020-03-27 10:59] LABS: Vitamin B12 1316 pg/mL (211-911)
[2020-03-27 11:13] LABS: ALB/GLOB Ratio 0.8 RATIO (0.9-2.4); AST(SGOT) 21 U/L (15-37); Alanine Aminotransfer ALT/SGPT 26 U/L (13-56); Albumin, Serum 3.3 g/dL (3.2-5.0); Alkaline Phosphatase 124 U/L (45-117); Anion Gap 5 (5-15); BUN 10 mg/dL (7-18); BUN/Creat Ratio 11.7 RATIO (10-20); Calcium,Total 9.1 mg/dL (8.5-10.1); Chloride 103 mmol/L (98-107); Creatinine, Serum 0.86 mg/dL (0.55-1.02); EST Glomerular Filtration Rate 72 mL/min (>60); Est Glom Filt Rate - Afr Amer 87 mL/min (>60); Ferritin 86 ng/mL (8-252); Globulin 4.4 g/dL (2.2-4.2); Glucose 135 mg/dL (74-106); Iron 59 ug/dL (50-170); Iron Binding Capacity,Total 355 ug/dL (250-450); Potassium 3.5 mmol/L (3.5-5.1); Protein, Total 7.7 g/dL (6.4-8.2); Sodium Level 139 mmol/L (136-145)
[2020-03-31 14:08] LABS: Vitamin B1, Thiamine 160.4 nmol/L (66.5-200.0)
[2020-03-31 19:57] LABS: Copper, Serum or Plasma 133 ug/dL (72-166)
== END ==
PROVIDERS: PCP Family Medicine Geriatric Medicine
DX: E55.9 Vitamin D deficiency, unspecified (principal); D64.9 Anemia, unspecified; E53.8 Deficiency of other specified B group vitamins; K90.9 Intestinal malabsorption, unspecified
CPT/HCPCS: 36415; 80053; 82306; 82525; 82607; 82728; 82746; 83540; 83550; 83970; 84425

== ENCOUNTER 2020-04-03 05:30 | Day surgery (SDC) | payer MEDICARE, SELFPAY ==
[2019-12-21 07:53] VITALS: BMI 44.2
--- NOTE | 2020-03-27 09:53 | EKG12_ITS ---
Test Reason : PREOP Blood Pressure : / mmHG Vent. Rate : 098 BPM Atrial Rate : 098 BPM P-R Int : 150 ms QRS Dur : 076 ms QT Int : 354 ms P-R-T Axes : 058 253 069 degrees QTc Int : 451 ms Normal sinus rhythm Normal ECG Confirmed by FREDI BARBA, ROBERT ([id number]), chemical etching processor JULIET GUAN ([id number]) on 03/28/2020 12:37:41 PM Referred By: Benjie Stacy Confirmed By:ROBERT RAI MD
[2020-03-27 10:26] LABS: Absolute Lymphocyte Count 1.82 X10^3/uL (0.83-4.51); Absolute Neutrophil Count 4.6 X10^3/uL (2.0-7.7); Basophil# 0.03 X10^3/uL; Basophil% 0.4 % (0-1); Eosinophil# 0.11 X10^3/uL; Eosinophils% 1.6 % (0-5); Hemoglobin 13.7 g/dL (12.0-15.0); Lymphocyte # 1.82 X10^3/ul (4.0); Mean Corp Hgb Conc 31.1 g/dL (32-36); Mean Corpuscular Hgb 28.7 pg (27.0-32.0); Mean Corpuscular Volume 92.1 fL (81-99); Mean Platelet Vol. 9.6 fl (6.2-12.0); Monocyte# 0.41 X10^3/uL; Monocyte% 5.8 % (0-10); NRBC Flagged by Analyzer 0 % (0-5); Neutrophil # 4.62 X10^3/uL (2.7-7.7); Neutrophil % 65.9 % (47-70); Platelet Count 304 K/mm3 (150-450); RBC Distribution Width CV 13.7 % (11.6-14.6); RBC Distribution Width SD 46.4 fl (35.1-43.9); Red Blood Count 4.78 M/mm3 (4.2-5.4)
[2020-03-27 10:36] LABS: Partial Thromboplast Time 33.7 Seconds (24.1-36.2); Prothrombin Time (Protime)PT. 12.4 SECONDS (11.7-14.9)
[2020-03-27 10:52] LABS: Anion Gap 3 (5-15); BUN 10 mg/dL (7-18); BUN/Creat Ratio 11.9 RATIO (10-20); Chloride 103 mmol/L (98-107); Creatinine, Serum 0.84 mg/dL (0.55-1.02); EST Glomerular Filtration Rate 74 mL/min (>60); Est Glom Filt Rate - Afr Amer 89 mL/min (>60); Glucose 135 mg/dL (74-106); Potassium 3.5 mmol/L (3.5-5.1); Sodium Level 138 mmol/L (136-145)
[2020-04-03] VITALS (8 sets, daily range): BP systolic 97–119; BP diastolic 55–88; PULSE 54–93; RESP 16–18; TEMP 36.1–36.8; O2SAT 92–100; BMI 44.2
[2020-04-03] MEDS: Celecoxib 200 MG Capsule 400 MG PO (06:37)
[2020-04-03] MEDS: Gabapentin 600 MG Tablet PO (06:38)
[2020-04-03] MEDS: Scopolamine 1mg/72hr Patch 1 PATCH TD (06:38)
[2020-04-03] MEDS: Acetaminophen 500 MG Tablet 1000 MG PO (06:38)
[2020-04-03] MEDS: Lactated Ringers 1,000 ML 999 ML IV (06:50)
--- NOTE | 2020-04-03 07:12 | PCM.HP.BLA ---
History and Physical Date of Admission: 04/03/20 Intake Intake Visit Reasons: left knee Is patient in pain?: Yes Allergies amlodipine [From [facility]] Adverse Reaction (Verified 03/19/20 08:11) Other lisinopril Adverse Reaction (Verified 03/19/20 08:11) Other Medications Cholecalciferol (Vitamin D3) [Vitamin D3] 1,000 unit PO DAILY 12/16/13 [History Confirmed 03/19/20] Losartan Potassium [Cozaar] 25 mg PO DAILY 12/16/13 [History Confirmed 03/19/20] Multivitamins,Therapeutic [Multivitamin] 1 tab PO DAILY 07/13/18 [History Confirmed 03/19/20] Paroxetine HCl 40 mg PO QHS 07/13/18 [History Confirmed 03/19/20] calcium carbonate 500 mg calcium (1,250 mg) tablet 500 mg PO DAILY 12/21/19 [History Confirmed 03/19/20] omeprazole 20 mg capsule,delayed release 20 mg PO DAILY 12/21/19 [History Confirmed 03/19/20] potassium gluconate 2 mEq tablet 20 meq PO BID 12/21/19 [History Confirmed 03/19/20] Doxepin HCl 100 mg PO QHS 03/19/20 [History Confirmed 03/19/20] [facility] Medical History (Updated 01/18/19 @ 07:[address] Ebony Jose MD) Anxiety (Acute) HTN (hypertension) (Chronic) Surgical History (Updated 01/18/19 @ 07:[address] Ebony Jose MD) H/O: hysterectomy (Acute) Social History (Updated 03/19/20 @ 16:[address] Benjie Stacy DO) Smoking Status: Never smoker HPI left knee: Details: Parts of this documentation were recorded by a scribe, this documentation accurately reflects the service provided and the decisions made by me, Dr. Benjie Stacy DO 03/19/20 1277. JONELLE RUIZ is a 59 year old F here today for left knee IOVERA treatment. Patient continues to have left knee pain and she continues to have difficulty ambulating long distances. Denies numbness, tingling or other associated symptoms. PAtient has already signed surgery consent on 03/07/2020. [facility] Reports joint pain, Reports joint swelling, Denies numbness, Denies tingling Skin/Breast Reports system reviewed and no additional complaints, except as docu Neuro Yes system reviewed and no additional complaints, except as docu, No numbness, No tingling Ortho Exam Right Knee Skin/Wound: Yes CDI Knee ROM: Yes ROM-Extension -20 to 0, Yes ROM-Flexion 0-140 (110) KNEE: no patellar instability. good ankle DF/PF Left Knee Skin/Wound: Yes CDI, No ecchymosis, No erythema, No swelling Homans Sign: No Knee ROM: Yes ROM-Extension -20 to 0 (-10), Yes ROM-Flexion 0-140 (85) Examination: Yes med jt line tenderness, Yes Lat jt line tenderness Stability: NML: Anterior Drawer, NML: Posterior Drawer, NML: Valgus 0, NML: Valgus 30, NML: Varus 0 Apprehension with Lateral Translation: No Patella Grind: Yes KNEE: no patellar instability. good PF/DF Office Procedures Iovera Details:: Preoperative diagnosis : osteoarthritis of left knee Postoperative diagnosis: Same Procedure: Cryotherapy with Iovera device to anterior femoral cutaneous nerve and 2 branches of the infrapatellar saphenous nerve III nerves in total Description of procedure: Patient was brought back to the procedure room the operative extremity was identified by both patient and physician. The PIP flexion crease was measured to the midpoint of the patella and this distance was divided in 3 resulting in 10 cm location proximal to the midpoint of the patella. This line was extended medial and lateral to the extent of the edges of the patella. This was our treatment line for the anterior femoral cutaneous nerve. A second treatment line was made 5 cm medial to the inferior pole of the patella and 5 cm distally. The leg was prepped with alcohol and Betadine. Lidocaine with epi was used along the treatment lines. Using the Iovera device treatment lines were treated with 1 minute cycles. Reproduction of paresthesias was monitored in the area of nerve distribution. Once all 3 nerves were treated across the 2 treatment lines patient was cleaned and a light dressing with 4 x 4 and Seun wrap was applied. Patient tolerated the procedure without complication. Assessment & Plan Problems 1. Chronic pain of left knee M25.562; G89.29 Plan Patient wishes to proceed with IOVERA treatment of the left knee today. Patient has already signed surgery consent for left total knee and patient wishes to proceed without robotic assist. Educated that the most important part after surgery is working on ROM. Patient educated that anesthesia will also further discuss her difficulty coming out of anesthesia and the option for a spinal. Follow up 2 weeks post op or sooner if pain, swelling, numbness or associated symptoms, or concerns develop. All questions answered. Patient in agreement of plan. Orders Orders: Iovera Today M25.569 Coding Level of Care Code Off vis,est,level 3 Diagnoses Chronic pain of left knee M25.562; G89.29 ??Chronicity: chronic I have re-examined the patient. There are no clinical changes since date of exam Procedure Criteria Procedure Type: Elective COVID Risk Discussion: The surgeon/proceduralist and patient have discussed in detail the risk of exposure to and/or potential harm posed by the COVID-19 virus with having a surgery/procedure at this time versus the risk of delaying the surgery/procedure. It is not possible to know either the risk of delaying the surgery or procedure or chance of getting an infection with perfect accuracy, but a joint decision was made between the patient and the surgeon/proceduralist to proceed at this time with the scheduled surgery/procedure as indicated on the consent form.
[2020-04-03 07:15] LABS: Bedside Glucose 92 mg/dL (70-110)
[2020-04-03] MEDS: Cefazolin 2 GM in 0.9% Normal Saline 100 ML IV (07:42)
[2020-04-03] MEDS: Lactated Ringers 1,000 ML 125 ML IV (08:11)
[2020-04-03] MEDS: dexAMETHasone 10 MG/ML Vial IV (08:15)
[2020-04-03] MEDS: Betamethasone/Betamethasone 30 MG/5 ML Vial (08:55)
[2020-04-03] MEDS: Epinephrine (1 mg/ml) 1 MG/ML VIAL (08:55)
[2020-04-03] MEDS: Bupivacaine 0.5% PF 10 ML VIAL (08:55)
[2020-04-03] MEDS: 0.9% Normal Saline (Pres. free 10 ML Vial (08:55)
--- NOTE | 2020-04-03 09:21 | RAD_ITS ---
STUDY: X-RAY - LEFT KNEE REASON FOR EXAM: Postop left total knee arthroplasty. TECHNIQUE: 2 view(s) of the knee. COMPARISON: Radiographs 12/21/2019. FINDINGS: There is a left total knee arthroplasty without evidence of complication. There is postoperative gas in the soft tissues and overlying skin rosa. RAD/Knee 1 or 2 Views IMPRESSION: Uncomplicated left total knee arthroplasty. Electronically Signed: Lee Montes De Oca MD at 11:50 EST Tel , Service support ,
--- NOTE | 2020-04-03 09:25 | DCINST_ITS ---
Discharge Diet: No Restrictions Weight Bearing Status: Weight bearing as tolerated Call your doctor if you observe: Shortness of breath, Chest pain Additional Instructions: Ice and elevate one week while not ambulating. Ambulation is encouraged. Weightbearing as tolerated. Use assistive devise for stability. Encourage FULL knee extension and flexion 1 time EVERY time you get up and down and MULTIPLE times per day. No showering 72 hours after surgery. Begin showering postop day #3. Remove the dressing prior to shower and gently wash with warm water and antibacterial soap then pat dry and place abdominal pad (or plain gauze) and YUNIEL hose over top. This is to be done daily. Do not submerge for 3 weeks. If not showering daily after the initial 72 hours then you must clean incision and change dressing daily. Do not allow animals near the incision area. Keep clean. Follow anticoagulation recommendations as prescribed. Do not take any NSAIDs while on blood thinner. Do not take any additional narcotic pain medication other than what was prescribed on you surgery day without discussing with physician. Start physical therapy. If you are not currently scheduled for physical therapy or you are unsure of appointment time please call office [facility] to arrange. Call Dr. Stacy with any concerns. Allergies/Adverse Reactions: Allergies amlodipine [From [facility]] Adverse Reaction (Verified 03/19/20 08:11) Other cough lisinopril Adverse Reaction (Verified 03/19/20 08:11) Other cough Medications to take at Discharge Cholecalciferol (Vitamin D3) [Vitamin D3] 1,000 unit PO DAILY 12/16/13 Losartan Potassium [Cozaar] 25 mg PO DAILY 12/16/13 Multivitamins,Therapeutic [Multivitamin] 1 tab PO DAILY 07/13/18 Paroxetine HCl 40 mg PO QHS 07/13/18 calcium carbonate 500 mg calcium (1,250 mg) tablet 500 mg PO DAILY 12/21/19 omeprazole 20 mg capsule,delayed release 20 mg PO DAILY 12/21/19 potassium gluconate 2 mEq tablet 20 meq PO BID 12/21/19 Doxepin HCl 100 mg PO QHS 03/19/20 Acetaminophen [Tylenol Extra Strength] 1,000 mg PO Q6H PRN #100 tab 04/03/20 Apixaban [Eliquis] 2.5 mg PO BID #30 tab 04/03/20 Cephalexin [Keflex] 1,000 mg PO Q8 #4 cap 04/03/20 Oxycodone [Oxyir] 5 mg PO Q4H PRN PRN #60 tablet 04/03/20 The following prescriptions were given: Apixaban [Eliquis] 2.5 mg PO BID #30 tab Transmission Status: Pending to [facility] Cephalexin [Keflex] 1,000 mg PO Q8 #4 cap Transmission Status: Pending to [facility] Oxycodone [Oxyir] 5 mg PO Q4H PRN PRN #60 tablet PRN Reason: Pain Score 6-10 Transmission Status: Sent to [facility] Acetaminophen [Tylenol Extra Strength] 1,000 mg PO Q6H PRN #100 tab Transmission Status: Pending to [facility] Primary Care Physician: Toan Moore Chi, MD [Primary Care Provider] - Test Results: Test results from this visit will be discussed in further detail at your follow- up appointment, if applicable. Please Follow Up With: Benjie Stacy DO When: 2 weeks
--- NOTE | 2020-04-03 09:26 | PCM.OPRPT ---
Report of Operation Date of Procedure: 04/03/20 Description of Surgical Findings:: Preoperative diagnosis: Left knee DJD Preoperative diagnosis: Left knee DJD Postoperative diagnosis: Same Procedure: Left total knee arthroplasty Implant: [place] triathlon press-fit femoral component size3, press-fit tibial baseplate size 3 asymmetric patella size 32, polyethylene X3 size 9 CS Anesthesia: Spinal with adductor canal block Tourniquet time: 12 minutes at 300 mmHg Complications: None Condition: Stable to PACU Estimated blood loss: 150 cc Indication for procedure: This is a 59-year-old female with long standing degenerative joint disease of the knee who has failed conservative treatment and wished to proceed with elective total knee arthroplasty. Risk benefits and alternatives were reviewed including; risk of bleeding, infection, nerve artery and tissue damage, continued pain, postoperative stiffness, venous thromboembolism, need for postoperative rehabilitation, mechanical feel to the knee, and expected postoperative course. Procedure: The patient was met in the preoperative holding area. The operative extremity was identified by both patient and physician and was marked. Patient was met by anesthesia. An adductor canal block was placed by anesthesia postoperatively the patient was brought back to the operating room on a wheeled cart and transferred to the operating table in the supine position. Anesthesia was started. A well-padded tourniquet was placed on the operative extremity. The patient was prepped and draped in the usual sterile fashion. A timeout was called to ensure the proper patient procedure and extremity were being contemplated. An Esmarch was used to exsanguinate the extremity. The tourniquet was inflated. A 10 blade scalpel was used to make a midline incision down through the skin and subcutaneous tissue. Skin retractors placed. Bovie was used to perform meticulous hemostasis. full-thickness flaps were elevated medial and lateral along the joint capsule. A deep blade scalpel was used to perform a medial parapatellar arthrotomy. The knee was brought to full extension. A Bovie was used to release the soft tissues off the most proximal aspect of the medial tibial plateau a three-quarter inch curved osteotome was also used for this process. The infrapatellar fat pad was excised. The fat pad was excised partially anterior lateral portion the anterior medial was elevated from the femur. the patella was everted. The knee was brought into flexion. An intramedullary drill was used followed by flexible intramedullary guide antwan. The distal femoral cutting block was placed and set to remove 10 mm of bone and 5 degrees of valgus. The block was secured with pins and an oscillating saw was used to complete the distal femoral cut. During this, and all bony cuts retractors were used to protect the collateral ligaments. At this point a femoral sizer was used to measure the AP dimension of the femur. The sizer block was pinned parallel to the epicondylar access for external rotation. The sizing block was removed and the appropriately sized 4-in-1 cutting block was placed over the previously made pinholes. It was checked with an almaz wing and the block was secured with pins. An oscillating saw was used to complete the anterior cut followed by the posterior cut followed by the posterior chamfer cut followed by the anterior chamfer cut. The block was removed as well as the fragments. A ronguer was used to remove excess osteophytes. The medial and lateral meniscus were excised as well as the ACL. At this point a PCL retractor was placed and an intramedullary drill was passed down the tibial canal followed by a solid intramedullary guide antwan. The tibial cutting block was attached and set to remove 9 mm of bone from the high side. This was checked with an external alignment drop antwan for slope and tilt. It was pinned into place. An oscillating saw was used to complete the tibial plateau cut and the block was removed. A large osteotome was used to elevate the fragment and a Susie and a Bovie were used to free the fragment from the surrounding soft tissue. A rongeur was once again used to remove osteophytes a lamina certified performance technologist was used to evaluate the posterior capsular structures. A three-quarter inch curved osteotome was used to remove posterior osteophytes. A spacer block was inserted in both extension and flexion to ensure adequate spacing. Trials were inserted full extension and flexion were achieved in varus and valgus stability throughout range of motion were seen, balancing techniques were performed. At this point the attention was turned towards the patella. A caliper was used to ensure sufficient bone stock to remove 10 mm of bone. A reamer was used to perform this task. Lug holes were made for the appropriate-sized patella. The patella trial was inserted and there was good patellar tracking with knee range of motion. The tibial baseplate was allowed to float into rotation and was marked on the tibial plateau with a Bovie. Lug holes were made in the femur and trials were removed. The tibial baseplate was then sized and its preparation was completed with a fin punch. The knee was thoroughly irrigated. A posterior capsular injection was performed with our standard cocktail. The knee was brought into flexion and irrigated again. The tibial baseplate was cemented. Excess cement was removed with curettes. The polyethylene component was inserted. The femoral component was cemented. The knee was brought into full extension and placed on a bump. The patellar component was cemented. At this point a Betadine rinse was placed and thoroughly irrigated after a few minutes. This was followed by an Iricept rinse which was allowed to sit for 1 minute and then thoroughly irrigated.At this point all gloves were changed. The knee was thoroughly irrigated the joint capsule was closed with #1 Ethibond. Tourniquet was let down followed by 0 Vicryl and 2-0 Vicryl in the subcutaneous tissues. followed by rosa in the skin. Dressing was applied in the form of Mepilex silver dressing web roll and an Seun wrap from the foot to the groin. The patient tolerated the procedure well, all counts were correct patient was brought back to the PACU in stable condition.
[2020-04-03] MEDS: Ketorolac 30 MG/ML Syringe 15 MG IV (11:30)
[2020-04-03] MEDS: Cefazolin 1 GM/50 ML BAG IV (13:00)
== END 2020-04-03 13:52 | disposition home or self-care (01) ==
LOC: SDC 05:31 → AC 05:41
PROVIDERS: Anesthesiology; PCP Family Medicine Geriatric Medicine; Referring Provider Orthopaedic Surgery; Visit Provider Orthopaedic Surgery
PROC: (CPT 27447; principal; 2020-04-03 07:20)
DX: M17.12 Unilateral primary osteoarthritis, left knee (principal); Z20.828 Contact with and (suspected) exposure to other viral communicable diseases; I10 Essential (primary) hypertension; Z79.899 Other long term (current) drug therapy; F41.9 Anxiety disorder, unspecified; G89.29 Other chronic pain; K21.9 Gastro-esophageal reflux disease without esophagitis; G25.81 Restless legs syndrome
CPT/HCPCS: 01400; 27447; 64447; 36415; 73560; 80048; 82962; 83735; 85025; 85610; 85730; 86850; 86900; 86901; 87077; 87081; 87426; 93005; 97162; C1776; C9803; J7040; J7120; J0702; J2405; J3490

== ENCOUNTER → 2020-04-19 10:46 | Outpatient (CLI) | payer MEDICARE, SELFPAY ==
[2020-04-03 07:00] VITALS: BMI 44.2
[2020-04-19 12:11] LABS: Absolute Lymphocyte Count 2.23 X10^3/uL (0.83-4.51); Absolute Neutrophil Count 3.8 X10^3/uL (2.0-7.7); Basophil# 0.03 X10^3/uL; Basophil% 0.4 % (0-1); Eosinophil# 0.15 X10^3/uL; Eosinophils% 2.2 % (0-5); Hematocrit 37.3 % (37-47); Hemoglobin 11.4 g/dL (12.0-15.0); Lymphocyte # 2.23 X10^3/ul (4.0); Lymphocyte % 32.8 % (19-41); Mean Corp Hgb Conc 30.6 g/dL (32-36); Mean Corpuscular Volume 91.6 fL (81-99); Monocyte# 0.57 X10^3/uL; Monocyte% 8.4 % (0-10); NRBC Flagged by Analyzer 0 % (0-5); Neutrophil # 3.79 X10^3/uL (2.7-7.7); Neutrophil % 55.9 % (47-70); Platelet Count 362 K/mm3 (150-450); RBC Distribution Width CV 13.6 % (11.6-14.6); RBC Distribution Width SD 46.3 fl (35.1-43.9); Red Blood Count 4.07 M/mm3 (4.2-5.4); White Blood Count 6.8 K/mm3 (4.4-11.0)
[2020-04-19 12:26] LABS: Vitamin D,25 Hydroxy 41.1 ng/mL
[2020-04-19 12:32] LABS: ALB/GLOB Ratio 0.7 RATIO (0.9-2.4); AST(SGOT) 27 U/L (15-37); Alanine Aminotransfer ALT/SGPT 37 U/L (13-56); Albumin, Serum 3.2 g/dL (3.2-5.0); Alkaline Phosphatase 120 U/L (45-117); Anion Gap 3 (5-15); BUN 15 mg/dL (7-18); BUN/Creat Ratio 17.9 RATIO (10-20); Calcium,Total 8.8 mg/dL (8.5-10.1); Chloride 104 mmol/L (98-107); Creatinine, Serum 0.84 mg/dL (0.55-1.02); EST Glomerular Filtration Rate 74 mL/min (>60); Est Glom Filt Rate - Afr Amer 90 mL/min (>60); Globulin 4.3 g/dL (2.2-4.2); Glucose 108 mg/dL (74-106); Potassium 3.8 mmol/L (3.5-5.1); Protein, Total 7.5 g/dL (6.4-8.2); Sodium Level 139 mmol/L (136-145); Thyroid Stim Hormone (TSH) 0.94 uIU/mL (0.358-3.74)
== END ==
PROVIDERS: PCP Family Medicine Geriatric Medicine; Visit Provider Family Medicine Geriatric Medicine
DX: E55.9 Vitamin D deficiency, unspecified (principal); E78.5 Hyperlipidemia, unspecified; I10 Essential (primary) hypertension
CPT/HCPCS: 36415; 80053; 82306; 84443; 85025

== ENCOUNTER 2020-06-05 05:31 | Day surgery (SDC) | payer MEDICARE, SELFPAY ==
[2020-04-03 07:00] VITALS: BMI 44.2
[2020-06-05] VITALS (10 sets, daily range): BP systolic 97–129; BP diastolic 58–73; PULSE 86–106; RESP 16–18; TEMP 36.2–36.5; O2SAT 95–100; BMI 42.8
[2020-06-05] MEDS: Gabapentin 600 MG Tablet PO (06:12)
[2020-06-05] MEDS: Acetaminophen 500 MG Tablet 1000 MG PO ×2 (06:12→14:20)
[2020-06-05] MEDS: Celecoxib 200 MG Capsule 400 MG PO (06:12)
[2020-06-05] MEDS: Scopolamine 1mg/72hr Patch 1 PATCH TD (06:13)
[2020-06-05] MEDS: Lactated Ringers 1,000 ML 999 ML IV (06:13)
[2020-06-05 07:05] LABS: Bedside Glucose 97 mg/dL (70-110)
--- NOTE | 2020-06-05 07:13 | PCM.HP.BLA ---
History and Physical Date of Admission: 06/05/20 Intake Intake Visit Reasons: LEFT KNEE Is patient in pain?: Yes Allergies amlodipine [From [facility]] Adverse Reaction (Verified 05/23/20 10:57) Other lisinopril Adverse Reaction (Verified 05/23/20 10:57) Other [facility] Medical History (Updated 04/03/20 @ 07:[address] Benjie Stacy DO) Anxiety (Acute) HTN (hypertension) (Chronic) Surgical History (Updated 01/18/19 @ 07:[address] Ebony Jose MD) H/O: hysterectomy (Acute) HPI LEFT KNEE: Chief Complaint: right knee pain, post op left TKA 6 weeks Details: Parts of this documentation were recorded by a scribe, this documentation accurately reflects the service provided and the decisions made by me, Dr. Benjie Stacy DO 05/23/20 0754. JONELLE RUIZ is a 59 year old F here today for s/p Left total knee arthroplasty dos 04/03/20. She states that her left knee is doing well. She has no left knee pain. She continues with physical therapy and they are pleased with her progress. Patient would like to discuss having her right knee surgery. She complains of pain over her anterior knee. Patient has increased pain with ambulating stairs. She is using a walker to ambulate. Denies numbness, tingling or other associated symptoms. She had xrays which are here for review. ROSIE Roque Reports joint pain, Denies numbness, Denies tingling Skin/Breast Reports system reviewed and no additional complaints, except as docu Neuro Yes system reviewed and no additional complaints, except as docu, No numbness, No tingling Ortho Exam Right Knee Skin/Wound: Yes CDI, No erythema, No ecchymosis, No swelling Homans Sign: No Knee ROM: Yes ROM-Extension -20 to 0, No ROM-Flexion 0-140 (108) Examination: Yes Med jt line tenderness Stability: NML: Anterior Drawer, NML: Posterior Drawer, NML: Valgus 30, NML: Varus 30 Patella Translation: 1 Apprehension with Lateral Translation: No Patella Grind: Yes Left Knee Skin/Wound: Yes healed, No ecchymosis, No erythema, No swelling Knee ROM: Yes ROM-Extension -20 to 0, Yes ROM-Flexion 0-140 (105) Patella Translation: 1 Supplemental Info 12/21/2019 x-ray bilateral knees advanced medial compartment [id number] 12/01/2018 x-ray bilateral knees severe medial compartment arthritis moderate patellofemoral arthritis Assessment & Plan Problems 1. Primary osteoarthritis of right knee M17.11 Plan Patient may continue with physical therapy for range of motion and strengthening for her left knee. She wanted to proceed with a total knee arthroplasty on her right knee. Risks, benefits and alternatives of surgery reviewed including but not limited to bleeding, infection, nerve, artery and/or tissue damage, fracture, VTE, mechanical feel of the knee, continued pain, stiffness and expected post-operative course. Discussed iovera which our office will get approval for. She will same day surgery. Follow up for 2 week post op appointment or sooner if pain, swelling, numbness or associated symptoms, or concerns develop. All questions answered. Patient in agreement of plan. Orders Orders: Knee 4 or More Views Today M25.562 Coding Level of Care Code Off vis,est,level 3 Diagnoses Primary osteoarthritis of right knee M17.11 ??Osteoarthritis type: primary I have re-examined the patient. There are no clinical changes since date of exam Procedure Criteria Procedure Type: Elective COVID Risk Discussion: The surgeon/proceduralist and patient have discussed in detail the risk of exposure to and/or potential harm posed by the COVID-19 virus with having a surgery/procedure at this time versus the risk of delaying the surgery/procedure. It is not possible to know either the risk of delaying the surgery or procedure or chance of getting an infection with perfect accuracy, but a joint decision was made between the patient and the surgeon/proceduralist to proceed at this time with the scheduled surgery/procedure as indicated on the consent form.
[2020-06-05] MEDS: dexAMETHasone 10 MG/ML Vial IV (08:27)
[2020-06-05] MEDS: Lactated Ringers 1,000 ML 125 ML IV (09:01)
[2020-06-05] MEDS: Bupivacaine Mpf 0.5% 30 ML VIAL (09:27)
[2020-06-05] MEDS: Epinephrine (1 mg/ml) 1 MG/ML VIAL (09:27)
[2020-06-05] MEDS: 0.9% Normal Saline (Pres. free 10 ML Vial (09:27)
[2020-06-05] MEDS: Betamethasone/Betamethasone 30 MG/5 ML Vial (09:27)
--- NOTE | 2020-06-05 09:48 | RAD_ITS ---
STUDY: X-RAY - RIGHT KNEE REASON FOR EXAM: Female, 60 years old. post op in pacu -- in PACU TECHNIQUE: 2 view(s) of the knee. COMPARISON: None. FINDINGS: Status post total knee arthroplasty. Surgical hardware intact/well aligned. No acute complications. Postoperative soft tissues with staple line. RAD/Knee 1 or 2 Views IMPRESSION: Uncomplicated right knee arthroplasty Electronically Signed: Александр Hankins DO at 10:58 EST Tel , Service support ,
--- NOTE | 2020-06-05 09:53 | DCINST_ITS ---
Discharge Diet: - - low sugar diet 2 weeks Weight Bearing Status: Weight bearing as tolerated Call your doctor if you observe: Fever of 101 or Higher, Shortness of breath, Chest pain Additional Instructions: Ice and elevate one week while not ambulating. Ambulation is encouraged. Srinivasa ghtbearing as tolerated. Use assistive devise for stability. Encourage FULL knee extension and flexion 1 time EVERY time you get up and down and MULTIPLE times per day. No showering 72 hours after surgery. Begin showering postop day #3. Remove the dressing prior to shower and gently wash with warm water and antibacterial soap then pat dry and place abdominal pad (or plain gauze) and YUNIEL hose over top. This is to be done daily. Do not submerge for 3 weeks. If not showering daily after the initial 72 hours then you must clean incision and change dressing daily. Do not allow animals near the incision area. Keep clean. Follow anticoagulation recommendations as prescribed. Do not take any NSAIDs while on blood thinner. Do not take any additional narcotic pain medication other than what was prescribed on you surgery day without discussing with physician. Start physical therapy. If you are not currently scheduled for physical therapy or you are unsure of appointment time please call office [facility] to arrange. Call Dr. Stacy with any concerns. Allergies/Adverse Reactions: Allergies amlodipine [From [facility]] Adverse Reaction (Verified 06/05/20 06:15) Other cough lisinopril Adverse Reaction (Verified 06/05/20 06:15) Other cough Medications to take at Discharge Cholecalciferol (Vitamin D3) [Vitamin D3] 1,000 unit PO DAILY 12/16/13 Losartan Potassium [Cozaar] 25 mg PO DAILY 12/16/13 Multivitamins,Therapeutic [Multivitamin] 1 tab PO DAILY 07/13/18 Paroxetine HCl 40 mg PO QHS 07/13/18 calcium carbonate 500 mg calcium (1,250 mg) tablet 500 mg PO DAILY 12/21/19 omeprazole 20 mg capsule,delayed release 20 mg PO DAILY 12/21/19 potassium gluconate 2 mEq tablet 20 meq PO BID 12/21/19 Doxepin HCl 100 mg PO QHS 03/19/20 Acetaminophen [Tylenol] 1,000 mg PO Q6H PRN #100 tab 04/03/20 oxycodone 5 mg tablet 5 mg PO Q4H PRN PRN #60 tab 04/16/20 Acetaminophen [Tylenol Extra Strength] 1,000 mg PO Q6H PRN #100 tab 06/05/20 Apixaban [Eliquis] 2.5 mg PO BID #30 tab 06/05/20 Cephalexin [Keflex] 1,000 mg PO Q8 #4 cap 06/05/20 Ondansetron HCl [Zofran] 4 mg PO Q6H PRN PRN 5 Days #10 tab 06/05/20 Oxycodone [Oxyir] 5 mg PO Q4H PRN PRN #60 tablet 06/05/20 The following prescriptions were given: Apixaban [Eliquis] 2.5 mg PO BID #30 tab Transmission Status: Pending to [facility] Cephalexin [Keflex] 1,000 mg PO Q8 #4 cap Transmission Status: Pending to [facility] Oxycodone [Oxyir] 5 mg PO Q4H PRN PRN #60 tablet PRN Reason: Pain Score 6-10 Transmission Status: Sent to [facility] Acetaminophen [Tylenol Extra Strength] 1,000 mg PO Q6H PRN #100 tab Transmission Status: Pending to [facility] Ondansetron HCl [Zofran] 4 mg PO Q6H PRN PRN 5 Days #10 tab PRN Reason: Nausea Transmission Status: Pending to [facility] Primary Care Physician: Toan Moore Chi, MD [Primary Care Provider] - Test Results: Test results from this visit will be discussed in further detail at your follow- up appointment, if applicable. Please Follow Up With: Benjie Stacy DO - 2Weeks
--- NOTE | 2020-06-05 09:54 | PCM.OPRPT ---
Report of Operation Date of Procedure: 06/05/20 Description of Surgical Findings:: Preoperative diagnosis: Right knee DJD Postoperative diagnosis: Same Procedure: Right total knee arthroplasty Implant: [place] triathlon cemented femoral component size2, cemented tibial baseplate size 3, cemented asymmetric patella size 27, polyethylene X3 size 9 CS Anesthesia: Spinal with adductor canal block Tourniquet time: 30 minutes at 300 mmHg Complications: None Condition: Stable to PACU Estimated blood loss: 100 cc Indication for procedure: This is a 60-year-old female with long standing degenerative joint disease of the knee who has failed conservative treatment and wished to proceed with elective total knee arthroplasty. Risk benefits and alternatives were reviewed including; risk of bleeding, infection, nerve artery and tissue damage, continued pain, postoperative stiffness, venous thromboembolism, need for postoperative rehabilitation, mechanical feel to the knee, and expected postoperative course. Procedure: The patient was met in the preoperative holding area. The operative extremity was identified by both patient and physician and was marked. Patient was met by anesthesia. An adductor canal block was placed by anesthesia postoperatively the patient was brought back to the operating room on a wheeled cart and transferred to the operating table in the supine position. Anesthesia was started. A well-padded tourniquet was placed on the operative extremity. The patient was prepped and draped in the usual sterile fashion. A timeout was called to ensure the proper patient procedure and extremity were being contemplated. An Esmarch was used to exsanguinate the extremity. The tourniquet was inflated. A 10 blade scalpel was used to make a midline incision down through the skin and subcutaneous tissue. Skin retractors placed. Bovie was used to perform meticulous hemostasis. full-thickness flaps were elevated medial and lateral along the joint capsule. A deep blade scalpel was used to perform a medial parapatellar arthrotomy. The knee was brought to full extension. A Bovie was used to release the soft tissues off the most proximal aspect of the medial tibial plateau a three-quarter inch curved osteotome was also used for this process. The infrapatellar fat pad was excised. The fat pad was excised partially anterior lateral portion the anterior medial was elevated from the femur. the patella was everted. The knee was brought into flexion. An intramedullary drill was used followed by flexible intramedullary guide antwan. The distal femoral cutting block was placed and set to remove 10 mm of bone and 5 degrees of valgus. The block was secured with pins and an oscillating saw was used to complete the distal femoral cut. During this, and all bony cuts retractors were used to protect the collateral ligaments. At this point a femoral sizer was used to measure the AP dimension of the femur. The sizer block was pinned parallel to the epicondylar access for external rotation. The sizing block was removed and the appropriately sized 4-in-1 cutting block was placed over the previously made pinholes. It was checked with an almaz wing and the block was secured with pins. An oscillating saw was used to complete the anterior cut followed by the posterior cut followed by the posterior chamfer cut followed by the anterior chamfer cut. The block was removed as well as the fragments. A ronguer was used to remove excess osteophytes. The medial and lateral meniscus were excised as well as the ACL. At this point a PCL retractor was placed and an intramedullary drill was passed down the tibial canal followed by a solid intramedullary guide antwan. The tibial cutting block was attached and set to remove 9 mm of bone from the high side. This was checked with an external alignment drop antwan for slope and tilt. It was pinned into place. An oscillating saw was used to complete the tibial plateau cut and the block was removed. A large osteotome was used to elevate the fragment and a Susie and a Bovie were used to free the fragment from the surrounding soft tissue. A rongeur was once again used to remove osteophytes a lamina tung nut grower was used to evaluate the posterior capsular structures. A three-quarter inch curved osteotome was used to remove posterior osteophytes. A spacer block was inserted in both extension and flexion to ensure adequate spacing. Trials were inserted full extension and flexion were achieved in varus and valgus stability throughout range of motion were seen, balancing techniques were performed. There was noted to be subchondral cyst of the medial tibial plateau these were curetted and was felt to best proceed with cementing of components due to this and the fact that the patella measured 27 which came as a cemented option only . at this point the attention was turned towards the patella. A caliper was used to ensure sufficient bone stock to remove 10 mm of bone. A reamer was used to perform this task. Lug holes were made for the appropriate-sized patella. The patella trial was inserted and there was good patellar tracking with knee range of motion. The tibial baseplate was allowed to float into rotation and was marked on the tibial plateau with a Bovie. Lug holes were made in the femur and trials were removed. The tibial baseplate was then sized and its preparation was completed with a fin punch. The knee was thoroughly irrigated. A posterior capsular injection was performed with our standard cocktail. The knee was brought into flexion and irrigated again. The tibial baseplate was cemented. Excess cement was removed with curettes. The polyethylene component was inserted. The femoral component was cemented. The knee was brought into full extension and placed on a bump. The patellar component was cemented. At this point a Betadine rinse was placed and thoroughly irrigated after a few minutes. This was followed by an Iricept rinse which was allowed to sit for 1 minute and then thoroughly irrigated.At this point all gloves were changed. The knee was thoroughly irrigated the joint capsule was closed with #1 Ethibond. Tourniquet was let down followed by 0 Vicryl and 2-0 Vicryl in the subcutaneous tissues. followed by rosa in the skin. Dressing was applied in the form of Mepilex silver dressing web roll and an Seun wrap from the foot to the groin. The patient tolerated the procedure well, all counts were correct patient was brought back to the PACU in stable condition.
[2020-06-05] MEDS: Ketorolac 15 MG/ML Vial IV (12:00)
[2020-06-05] MEDS: Cefazolin 1 GM/50 ML BAG IV (13:01)
== END 2020-06-05 14:41 | disposition home or self-care (01) ==
LOC: SDC 05:31 → AC 05:31
PROVIDERS: Anesthesiology; PCP Family Medicine Geriatric Medicine; Referring Provider Orthopaedic Surgery; Visit Provider Orthopaedic Surgery
PROC: (CPT 27447; principal; 2020-06-05 07:20)
DX: M17.11 Unilateral primary osteoarthritis, right knee (principal); I10 Essential (primary) hypertension; G25.81 Restless legs syndrome; K21.9 Gastro-esophageal reflux disease without esophagitis; F41.9 Anxiety disorder, unspecified; Z79.899 Other long term (current) drug therapy; Z98.84 Bariatric surgery status
CPT/HCPCS: 01402; 27447; 64447; 36415; 73560; 82962; 83735; 87077; 87081; 87426; 97162; C1776; C9803; J7120; J0702; J3490

== ENCOUNTER 2020-06-12 21:21 | Emergency (ER) | payer MEDICARE, SELFPAY ==
[2020-06-05 06:21] VITALS: BMI 42.8
[2020-06-12 21:22] VITALS: BP 116/66; PULSE 100; RESP 18; TEMP 36.5; O2SAT 96; BMI 42.0
--- NOTE | 2020-06-12 21:34 | US_ITS ---
STUDY: VENOUS DOPPLER ULTRASOUND - RIGHT LOWER EXTREMITY REASON FOR EXAM: Female, 60 years old. RT LEG SWELLING AROUND ANKLE AND MEDIAL THIGH BRUISING S/P RT KNEE REPLACEMENT LAST WEEK TECHNIQUE: Ultrasound evaluation of the deep vein system to include logan-scale imaging and compression was performed. Logan-scale imaging and Doppler sonographic evaluation, including duplex spectral analysis and qualitative color flow sonography, was performed. COMPARISON: None. FINDINGS: Common Femoral Vein: Normal compression, spontaneity and augmentation. Normal color Doppler. Common Femoral Vein/Greater Saphenous Junction: Normal compression, spontaneity and augmentation. Normal color Doppler. Deep Femoral Vein: Normal compression, spontaneity and augmentation. Normal color Doppler. Femoral Proximal: Normal compression, spontaneity and augmentation. Normal color Doppler. Femoral Middle: Normal compression, spontaneity and augmentation. Normal color Doppler. Femoral Distal: Normal compression, spontaneity and augmentation. Normal color Doppler. Popliteal Vein: Normal compression, spontaneity and augmentation. Normal color Doppler. Posterior Tibial Vein: Normal compression, spontaneity and augmentation. Normal color Doppler. Peroneal Vein: Normal compression, spontaneity and augmentation. Normal color Doppler. US/Venous Duplex Imag/Limited/Uni IMPRESSION: Normal venous Doppler ultrasound of the lower extremity. Electronically Signed: Paul Roque DO at 22:41 EDT Tel , Service support ,
--- NOTE | 2020-06-12 21:38 | ED.VIS.GEN ---
History of Present Illness Chief Complaint: Lower Extremity Injury Informant: Patient Onset: Yesterday Context: Gradual Onset Timing: Continuous Current Severity: Moderate Maximum Severity: Moderate Narrative: Patient is a 60-year-old female who presents to the emergency department for right leg swelling. Patient had a right total knee replacement done last week. It was done by Dr. Ramirez. She is on Eliquis for DVT prophylaxis. She states over the past 24 hours, she is noticed more bruising and swelling. She states she is had some increased pain. She denies any fevers or chills. She denies any trauma. She denies any chest pain or shortness of breath. She did discuss this with orthopedic surgeon who referred her in for further evaluation. Prior similar symptoms: No Recent Illness/Hospitalization: Yes Past Medical History - Allergies and Home Meds Allergies/Adverse Reactions: Allergies amlodipine [From [facility]] Adverse Reaction (Verified 06/12/20 21:22) Other cough lisinopril Adverse Reaction (Verified 06/12/20 21:22) Other cough Primary Care Physician: Toan Moore Chi, MD [Primary Care Provider] - Prior records reviewed: Yes Past Medical History: - - Hypertension Surgical History: no surgical history Smoking Status: Never smoker - Family History Maternal Family History: Reports: Hypertension Review of Systems General: Denies: Chills, Fever, Sweats Eyes: Denies: Visual changes - bilaterally, Diplopia ENT: Denies: Rhinorrhea, Sore throat Cardiovascular: Denies: Chest pain, Palpitations Respiratory: Denies: Dyspnea, Cough, Dyspnea on exertion Gastrointestinal: Denies: Abdominal pain, Nausea, Vomiting, Diarrhea, Melena, Hematochezia Genitourinary: Denies: Dysuria, Hematuria, Frequency Musculoskeletal: Denies: Back pain, Extremity Pain Skin: Denies: Rash, Wounds Neurological: Denies: Headache, Weakness, Numbness Physical Exam Vital Signs/Narrative: Vital Signs Temp Pulse Resp BP Pulse Ox 06/12/20 21:22 97.7 F L 100 18 116/66 96 Inital Vital Signs reviewed: Yes General: Well nourished, Well developed, No Acute Distress Head: Normocephalic, Atraumatic Eyes: Perrl, EOMI ENT: Moist mucous membranes, No rhinorrhea Neck: Supple, Nontender Cardiovascular: Regular rate, Regular rhythm, No murmurs Respiratory: No distress, CTA bilaterally, Chest nontender Abdomen: Soft, Nontender, Nondistended, Normal bowel sounds Back: Nontender, Normal Inspection Extremities: Nontender, Edema - The patient's right lower extremity is edematous. The incision is clean, dry, intact. There is ecchymotic area consistent with her recent surgery. There are no palpable cords. There is no cellulitis. Skin: Normal color, No rash Neurological: Alert, Oriented x3, Cranial nerves II-XII grossly intact, Normal Strength, Normal Sensation Psychological: Normal affect, Normal Mood Diagnostic/Tx/Re-eval - Medical Decision Making Venous ultrasound was obtained. There is no evidence of DVT. Her incision is clean dry and intact. I do feel that this is normal postoperative ecchymosis. I discussed the patient with her orthopedic surgeon, Dr. Stacy. He states he be more than happy to see the patient tomorrow and follow-up if needed. The patient is comfortable with this plan of care. She will be discharged home. Impression 1. Postoperative swelling ED Disposition - Plan for ED Patient: Disposition: Home or Assisted Living Instructions: ED Post Op Wound Check, Pain Referrals: Toan Moore Chi, MD [Primary Care Provider] -
[2020-06-12] MEDS: oxyCODONE 5 MG Tablet PO (21:40)
== END 2020-06-12 22:42 | disposition home or self-care (01) ==
LOC: ED 21:50
PROVIDERS: Emergency Provider Emergency Medicine; PCP Family Medicine Geriatric Medicine
DX: M79.89 Other specified soft tissue disorders (principal); I10 Essential (primary) hypertension; Z79.02 Long term (current) use of antithrombotics/antiplatelets
CPT/HCPCS: 93971; 99283

== ENCOUNTER → 2020-11-16 07:52 | Outpatient (CLI) | payer BC, SELFPAY ==
[2020-10-31 14:31] VITALS: BMI 42.0
--- NOTE | 2020-11-16 08:30 | MRI_ITS ---
STUDY: MRI RIGHT ANKLE WITHOUT CONTRAST REASON FOR EXAM: Right heel/posterior ankle pain, no specific injury. TECHNIQUE: Standardized fat and water weighted pulse sequences were obtained in all 3 orthogonal planes. COMPARISON: None. FINDINGS: There is edema in the lateral and medial subcutis adipose space. Normal posterior tibialis tendon. Normal flexor digitorum longus tendon. Normal flexor hallucis longus tendon. Normal peroneus longus and brevis tendons. Normal tibialis anterior tendon. Normal extensor hallucis longus tendon. Normal extensor digitorum longus tendons. There is distal Achilles tendinosis with fusiform thickening measuring 1.2 cm in AP dimension and increased intrasubstance signal (inversion recovery sagittal images 10-15). There is a small low-grade partial-thickness tear of the anterior surface of the distal Achilles tendon (T2 axial image 13). There is reactive bone edema in the posterior tuberosity of the calcaneus extending into the body (inversion recovery sagittal images 8-14), greatest at the Achilles tendon insertion. There is retrocalcaneal bursitis (inversion recovery sagittal images 10-12). Normal plantar fascia. There is a plantar calcaneal enthesophyte. Normal intrinsic muscles of the rearfoot. Normal distal tibiofibular syndesmotic ligamentous complex. Normal lateral ligamentous complex. Normal subtalar ligaments and sinus tarsi. Normal deltoid ligamentous complexes. Normal plantar calcaneonavicular (spring) ligament. Normal tibiotalar articulation. Normal talar dome. Normal subtalar articulations. Normal talonavicular articulation. Normal calcaneocuboid articulation. Normal navicular-cuneiform articulations. MRI/Lower Ext Joint Only (Routine) IMPRESSION: Achilles tendinosis with small low-grade partial tendon tear, reactive bone edema of the calcaneus and retrocalcaneal bursitis. Electronically Signed: Lee Montes De Oca MD at 9:35 EDT Tel , Service support ,
== END ==
PROVIDERS: PCP Family Medicine Geriatric Medicine; Referring Provider Podiatrist; Visit Provider Podiatrist
DX: M76.61 Achilles tendinitis, right leg (principal); M77.31 Calcaneal spur, right foot; M79.671 Pain in right foot
CPT/HCPCS: 73721

== ENCOUNTER → 2020-12-10 13:48 | Outpatient (CLI) | payer BC, SELFPAY ==
[2020-12-10 15:22] LABS: Absolute Lymphocyte Count 2.43 X10^3/uL (0.83-4.51); Absolute Neutrophil Count 5.7 X10^3/uL (2.0-7.7); Basophil# 0.03 X10^3/uL; Basophil% 0.3 % (0-1); Eosinophil# 0.21 X10^3/uL; Eosinophils% 2.3 % (0-5); Hematocrit 39.3 % (37-47); Hemoglobin 12.6 g/dL (12.0-15.0); Lymphocyte # 2.43 X10^3/ul (0.83-4.51); Lymphocyte % 26.6 % (19-41); Mean Corp Hgb Conc 32.1 g/dL (32-36); Mean Corpuscular Hgb 28.6 pg (27.0-32.0); Mean Corpuscular Volume 89.1 fL (81-99); Monocyte# 0.72 X10^3/uL; Monocyte% 7.9 % (0-10); NRBC Flagged by Analyzer 0 % (0-5); Neutrophil # 5.72 X10^3/uL (2.7-7.7); Neutrophil % 62.7 % (47-70); Platelet Count 302 K/mm3 (150-450); RBC Distribution Width SD 45.2 fl (35.1-43.9); Red Blood Count 4.41 M/mm3 (4.2-5.4); White Blood Count 9.1 K/mm3 (4.4-11.0)
[2020-12-10 15:48] LABS: Vitamin D,25 Hydroxy 43.9 ng/mL
[2020-12-10 15:55] LABS: ALB/GLOB Ratio 0.8 RATIO (0.9-2.4); AST(SGOT) 19 U/L (15-37); Alanine Aminotransfer ALT/SGPT 27 U/L (13-56); Albumin, Serum 3.4 g/dL (3.2-5.0); Alkaline Phosphatase 116 U/L (45-117); Anion Gap 6 (5-15); BUN 16 mg/dL (7-18); BUN/Creat Ratio 21.4 RATIO (10-20); Calcium,Total 9.1 mg/dL (8.5-10.1); Chloride 102 mmol/L (98-107); Cholesterol 187 mg/dL (200); Creatinine, Serum 0.75 mg/dL (0.55-1.02); EST Glomerular Filtration Rate 84 mL/min (>60); Est Glom Filt Rate - Afr Amer 101 mL/min (>60); Globulin 4.2 g/dL (2.2-4.2); Glucose 97 mg/dL (74-106); High Density Lipoprotein 50 mg/dL; Potassium 3.7 mmol/L (3.5-5.1); Protein, Total 7.6 g/dL (6.4-8.2); Sodium Level 139 mmol/L (136-145); Thyroid Stim Hormone (TSH) 1.08 uIU/mL (0.358-3.74); Triglycerides 212 mg/dL; Very Low Density Lipoprotein 42 mg/dL (5-40)
== END ==
PROVIDERS: PCP Family Medicine Geriatric Medicine; Referring Provider Family Medicine Geriatric Medicine; Visit Provider Family Medicine Geriatric Medicine
DX: E55.9 Vitamin D deficiency, unspecified (principal); E78.5 Hyperlipidemia, unspecified; I10 Essential (primary) hypertension
CPT/HCPCS: 36415; 80053; 80061; 82306; 84443; 85025

== ENCOUNTER 2021-01-04 08:40 | Day surgery (SDC) | payer MEDICARE, SELFPAY ==
[2021-01-04] VITALS (8 sets, daily range): BP systolic 100–128; BP diastolic 63–84; PULSE 84–91; RESP 16; TEMP 36.1–36.8; O2SAT 92–97; BMI 44.8
--- NOTE | 2021-01-04 | TESH_PTH ---
PATIENT: JONELLE RUIZ [place] [facility] [place][id number] AGE/SX: 60/F ROOM: RE01/04/[address]: Dr. Kika Grace DPM : 1960 BED: DIS: 01/04/2021 SPEC #: [id number] RECD: 01/04/21 13:21 STATUS: GAURANG RECharlie #: [id number] DEEPIKA: 01/04/21 00:[address]: Kika Grace DEPT: SURGICAL PATHOLOGY RECD BY: Tyrell Conrad ENTERED: 01/04/21 13:21 SP TYPE: TENDON OTHR DR: Toan Moore MD Tissues: Tendon and tendon sheath, NOS Procedures: Surgery Specimen Level IV HEADER OPERATION: Lower extremity/spur resection with detach and reattachment PRE-OP DIAGNOSIS: Achilles tendonitis tear, calcaneus spur, foot pain TISSUE SUBMITTED: Right Achilles tendon and bursa MICROSCOPIC DIAGNOSIS Right Achilles tendon and bursa, excision: Tendinous tissue with degenerative and reparative change. Bursa with synovial hyperplasia and associated mild chronic inflammation. AM:kira 01/07/2021 MICROSCOPIC DESCRIPTION Slides are reviewed. GROSS DESCRIPTION Received in fixative is one container labeled with the patient's name and designated right Achilles tendon and bursa. The specimen consists of multiple irregular fragments of shaw-yellowish soft tissue that in aggregate measure 4 x 4 x 0.3 cm. The larger pieces are sectioned. The entire specimen is submitted in three cassettes. / ILIANA:kira 01/04/21 TC: 3 CPT: 95214
[2021-01-04] MEDS: Lactated Ringers 1,000 ML 80 ML IV (09:28)
--- NOTE | 2021-01-04 09:45 | RAD_ITS ---
STUDY: X-RAY - RIGHT ANKLE REASON FOR EXAM: Female, 60 years old. Intraoperative digital documentation images of spur removal. TECHNIQUE: 8 intraoperative digital documentation view(s) of the ankle. COMPARISON: None. FINDINGS: Intraoperative digital documentation views of the posterior aspect of the calcaneus. Total exposure time 13 seconds. Total DAP: 1.2983 cGy/cm2. Total Air Kerma 0.0773 mGy. RAD/Ankle 2 Views IMPRESSION: Intraoperative digital documentation images. Electronically Signed: Charlie Oleary MD at 12:46 EDT , Service support ,
--- NOTE | 2021-01-04 10:08 | EX.PCM.DISCH ---
Discharge Instructions Procedure Narrative: right lower extremity heel spur resection with achilles tendon tear repair Diet Discharge Diet: No restrictions Activity Discharge Activity: May Not Drive, May Shower (only with the use of a shower bag), Use Crutches and - (ok to also use a knee roller or walker if needed) Weight Bearing Status: No weight bearing Keep extremity elevated above heart level: Right Leg Dressing / Incision Call your doctor if your incision/area has: Continuous Slow Oozing, Sudden Increased Bleeding, Increased Pain/ Swelling, Increased Redness, Foul Smelling Discharge and Swelling at the incision site Call your doctor if you observe: Fever of 101 or Higher, Numbness or Tingling, Swelling in the ankles, Calf discomfort and Uncontrolled pain Change Dressing in: do not change dressing Remove Dressing in: do not remove dressing Cleanse incision/area with: Keep Dressing Clean & Dry Follow Up Care Please Follow Up With: Kika Grace DPM When: [facility]. Call [phone] sooner if questions. Test Results: Test results from this visit will be discussed in further detail at your follow-up appointment, if applicable. Discharge Plan Admission Attending Provider: Kika Grace Primary Care Provider: Toan Moore Chi Instructions Additional Instructions / Restrictions: Do not lay with direct pressure on the back of your heel which is where your surgical site is located. You can place pillows or a blanket behind your leg instead. Discharge Orders/Prescriptions Prescriptions: New hydrocodone-acetaminophen 5-325 mg tablet 1 tab PO Q6H PRN (Reason: pain) 7 Days Qty: 28 RF: 0 No Action calcium carbonate [Calcium 500] 500 mg calcium (1,250 mg) tablet 500 mg PO DAILY RF: 0 potassium gluconate 2 mEq tablet 2 mEq tablet 20 meq PO BID RF: 0 omeprazole 20 mg capsule,delayed release(DR/EC) 20 mg PO DAILY RF: 0 losartan 25 MG tablet 25 mg PO DAILY RF: 0 cholecalciferol (vitamin D3) 1,000 UNIT capsule 1,000 unit PO DAILY RF: 0 paroxetine HCl 40 MG tablet 40 mg PO QHS RF: 0 multivitamin with folic acid 1 TABLET tablet 1 tab PO DAILY RF: 0 doxepin 100 MG capsule 100 mg PO QHS RF: 0 Referrals / Follow Up: Toan Moore Chi, MD [Primary Care Provider] - Disposition Disposition (needs filled in before D/C Order can be placed): Home, Self Care
[2021-01-04] MEDS: Lidocaine 1% (30 ml sdv) 30 ML Vial (10:28)
[2021-01-04] MEDS: Bupivacaine Mpf 0.5% 30 ML VIAL (10:28)
[2021-01-04] MEDS: Cefazolin 2 GM in 0.9% Normal Saline 100 ML IV (10:30)
--- NOTE | 2021-01-04 12:14 | RAD_ITS ---
STUDY: X-RAY - RIGHT CALCANEUS REASON FOR EXAM: Female, 60 years old. s/p heel spur resection TECHNIQUE: 2 view(s) of the calcaneus were obtained. COMPARISON: None. FINDINGS: Bandage material obscures bony detail. Linear margin of the superior posterior calcaneus compatible with surgical resection. There is soft tissue swelling superior to the calcaneus. Moderate size calcaneal spur. RAD/Calcaneus min 2 Views IMPRESSION: 1. Operative changes of the calcaneus. Soft tissue swelling superiorly posterior to the calcaneus. Electronically Signed: Jony Gann MD ([place]) at 14:25 EDT , Service support ,
--- NOTE | 2021-01-04 12:17 | PCM.OPRPT ---
Problems Associated Problem List Diagnoses (1) Pain in right foot: (2) Calcaneal spur, right foot: (3) Achilles tendinitis, right leg: Report of Operation Date of Procedure: 01/04/21 Pre-Operative Diagnosis: 1. Right calcaneus spur 2. Right Achilles tendon tear 3. Right retrocalcaneal bursitis Post-Operative Diagnosis: 1. Right calcaneus spur 2. Right Achilles tendon tear 3. Right retrocalcaneal bursitis Surgery/Procedure Performed:: 1. Repair of Achilles tendon tear 2. Calcaneus spur resection with de and reattachment of the Achilles tendon 3. Excision of inflamed retro calcaneal bursa Description of Surgical Findings:: Hemostasis: Well-padded pneumatic right thigh tourniquet, 315 mmHg, 56 minutes Materials: Arthrex speed bridge with fiber tape, 4-0 nylon, 3-0 Vicryl Complications: None Specimens: Debrided achilles tendon and retrocalcaneal bursa Findings: Thickened hypertrophic Achilles tendon with prominent spur at the insertion of the Achilles and also consistent with Talat deformity resolved after resection/debridement. No notable equinus noted while tested under general anesthesia prior to surgical start. The patient tolerated the procedure and anesthesia well. The patient was transported to the PACU with vital signs stable and vascular status intact to the surgical limb. To ice and elevate for pain and inflammation management. Postoperative x-rays were reviewed prior to leaving the operating room. Appropriate resection of the Talat and insertional heel spur are noted. No foreign body or acute injuries. Register placement noted in desired position. Postoperative orders were entered electronically. Surgeon: Kika Grace manager furniture: None (Penelope Rodríguez, PGY3, DPM) Type of Anesthesia: General/Regional and Local (Preoperative: 20 cc of 1% lidocaine plain mixed with 0.5% Marcaine plain administered in right high ankle block fashion. Postoperative: 10 cc of same mixture administered in a local infiltrative manner) Specimen's removed: right bursa and tendon debridement Drains: none Estimated Blood Loss (mL): 100 mL Description of Procedure: Indications: This 60-year-old female with significant past medical history of hypertension, right knee injuries, and history of bariatric surgery continues to complain of a painful right heel spur. She has failed conservative care including immobilization, activity modification, shoe gear modification, heel lift, physical therapy training, and rest. She has pain palpation to the posterior prominent aspect of her heel spur and just proximal to that site. There is no notable palpable thickening noted. X-rays demonstrate this prominent Talat deformity and insertional spur. MRI confirmed a spur with additional retrocalcaneal bursa anterior to the central medial aspect of the Achilles that is partial. There is also significant bone edema at the insertion of the Achilles tendon. Her neurovascular status is intact. She is unable to walk without pain and has failed conservative care and elects proceed for surgery. Preoperative H&P (Dr. Moore) were reviewed including his diagnostic data. There is no gross abnormalities noted with labs for preoperative EKG. Preoperative indications, planned procedure, benefits, risk, anticipated healing time and management were reviewed. The patient understands and elects proceed with surgery at this time. No guarantees were made. The patient understands risk and complications include but are not limited to following: pain, swelling, scarring, need for further surgery, tendon contracture, transfer lesion, hardware failure, arthritis, need for further surgery, delayed or nonhealing, infection, blood clot, allergic reaction, loss of limb, function, or life. The informed surgical limb and consent were signed. I answered all the patient's questions. The patient also understands there is an inherent risk with being in the hospital and undergoing a procedure during the time of COVID-19 pandemic. The patient understands precautions are being taken to prevent transmission. This patient understands the benefits and risks of having a procedure at this time versus waiting in which the benefits are reasonable at this time. Procedure in detail: The patient was transferred to the operating room via cart and placed on the operating table after anesthesia was initiated. General anesthesia was initiated and the tourniquet was applied and well-padded manner. Next, she was positioned in a prone position taking care to pad all bony prominences. IV antibiotics were preoperatively administered by the anesthesia team. The podiatry team administered the local anesthetic. The right lower extremity was prepped and draped in the usual aseptic manner and surgery began the following: Now that she is relaxed under general anesthesia, the Silfverskiold test was performed and she had 10 degrees of ankle dorsiflexion with the knee flexed and extended. Equinus correction surgical intervention was not deemed necessary. An Esmarch bandage was used to exsanguinate the limb and the tourniquet was inflated at this time. A 5 cm linear incision was made central to the posterior heel through the skin. Blunt dissection was performed down to the peritenon level taking care to create a full-thickness flap to preserve vasculature. Care was taken to identify protect and retract any neurovascular status at this point and throughout the remainder of surgery. Thickening of the Achilles and the tear was noted and the Achilles tendon was incised with the shape of a T to reflect and expose the heel spur adequately. Care was taken to leave the medial lateral extensions intact. A sagittal saw and osteotome/mallet were used to resect the Talat and also the insertion enthesopathy. This resected bone measured about 3 x 3 x 1 cm. A rasp was used to smooth this area. Additionally the retrocalcaneal bursa sac was very inflamed and thickened and this was removed with a rongeur. Unhealthy tendon and bursa were sent to pathology. Intraoperative fluoroscopy was used to confirm full resection of the symptomatic spur. Copious saline irrigation was performed. Next, Arthrex speed bridge was used to reattach the Achilles tendon. It is noted care was taken to leave the medial and lateral most aspects of the Achilles tendon attached for stability. Four swivel lock anchors were applied to secure the previously detached Achilles back to the calcaneus insertion point according standard protocol. This was done in a secure manner and after attachment the Achilles moved as 1 unit in conjunction with the heel bone. Next, the linear partial tear was repaired directly with 4-0 nylon taking care to bury the knots. Saline irrigation was performed again. The tourniquet was deflated at this time. No pulsatile bleeding was noted. Minimal electrocauterization was performed. Pressure was applied to maintain hemostasis. Capillary fill time was noted to all the digits and there was no pulsatile bleeding. A postoperative dressing was applied including jumpstart antimicrobial dressing, 4 x 4 gauze, abdominal pads, Kerlix. A well-padded posterior mold splint was applied with the limb in a slight plantarflexed relaxed position. After procedure: The patient tolerated the procedure and anesthesia well. The patient was transported to the PACU with vital signs stable and vascular status intact to the surgical limb. To ice and elevate for pain and inflammation management. Postoperative x-rays were reviewed prior to leaving the operating room as previously noted. She already has crutches and will additionally be trained prior to discharge today. She already has her postoperative pain medication and was advised on safe and proper use. Postoperative orders were entered electronically. She will follow-up in clinic in 1 week. Kika Grace DPM, [facility] [place] Grafts/Implants Used: arthrex Complications none Admit VTE Documentation VTE Present on Admission: No VTE Mechan Device Prophylaxis: SCD's VTE Pharm Prophylaxis ordered?: No Reason prophylaxis not ordered:: Procedure Not Indicated
[2021-01-04] MEDS: HYDROcodone Bitartrate/Apap 5/325 Tablet PO (14:04)
== END 2021-01-04 14:32 | disposition home or self-care (01) ==
LOC: SDC 08:40 → AC 08:42
PROVIDERS: PCP Family Medicine Geriatric Medicine; Referring Provider Podiatrist; Visit Provider Podiatrist
PROC: (CPT 28899; principal; 2021-01-04 10:15)
DX: M77.31 Calcaneal spur, right foot (principal); M76.61 Achilles tendinitis, right leg; M77.51 Other enthesopathy of right foot and ankle; I10 Essential (primary) hypertension; K21.9 Gastro-esophageal reflux disease without esophagitis; F41.9 Anxiety disorder, unspecified; Z98.84 Bariatric surgery status; E78.5 Hyperlipidemia, unspecified; Z79.899 Other long term (current) drug therapy; M17.9 Osteoarthritis of knee, unspecified; G47.30 Sleep apnea, unspecified; M92.61 Juvenile osteochondrosis of tarsus, right ankle
CPT/HCPCS: 27654; 28118; 73600; 73650; 76000; 87426; 88304; 88305; C9803; J7120; J2405

== ENCOUNTER → 2021-10-15 | Outpatient (CLI) | payer MEDICARE, SELFPAY ==
[2021-10-15 17:16] LABS: Absolute Lymphocyte Count 2.61 X10^3/uL (0.83-4.51); Absolute Neutrophil Count 5.9 X10^3/uL (2.0-7.7); Basophil# 0.03 X10^3/uL; Basophil% 0.3 % (0-1); Eosinophil# 0.14 X10^3/uL; Eosinophils% 1.5 % (0-5); Hemoglobin 12.6 g/dL (12.0-15.0); Lymphocyte # 2.61 X10^3/ul (0.83-4.51); Mean Corp Hgb Conc 30.7 g/dL (32-36); Mean Corpuscular Hgb 27.2 pg (27.0-32.0); Mean Corpuscular Volume 88.4 fL (81-99); Mean Platelet Vol. 9.9 fl (6.2-12.0); Monocyte# 0.67 X10^3/uL; Monocyte% 7.2 % (0-10); NRBC Flagged by Analyzer 0 % (0-5); Neutrophil # 5.85 X10^3/uL (2.7-7.7); Neutrophil % 62.7 % (47-70); Platelet Count 350 K/mm3 (150-450); RBC Distribution Width CV 14.6 % (11.6-14.6); Red Blood Count 4.64 M/mm3 (4.2-5.4); White Blood Count 9.3 K/mm3 (4.4-11.0)
[2021-10-15 17:33] LABS: Vitamin D,25 Hydroxy 43.8 ng/mL
[2021-10-15 17:40] LABS: ALB/GLOB Ratio 0.7 RATIO (0.9-2.4); AST(SGOT) 19 U/L (15-37); Alanine Aminotransfer ALT/SGPT 32 U/L (13-56); Albumin, Serum 3.2 g/dL (3.2-5.0); Alkaline Phosphatase 113 U/L (45-117); Anion Gap 5 (5-15); BUN 14 mg/dL (7-18); BUN/Creat Ratio 14.7 RATIO (10-20); Calcium,Total 9.3 mg/dL (8.5-10.1); Chloride 103 mmol/L (98-107); Creatinine, Serum 0.96 mg/dL (0.55-1.02); EST Glomerular Filtration Rate 63 mL/min (>60); Est Glom Filt Rate - Afr Amer 76 mL/min (>60); Globulin 4.5 g/dL (2.2-4.2); Glucose 115 mg/dL (74-106); Potassium 4.2 mmol/L (3.5-5.1); Protein, Total 7.7 g/dL (6.4-8.2); Sodium Level 140 mmol/L (136-145); Thyroid Stim Hormone (TSH) 1.36 uIU/mL (0.358-3.74)
== END | disposition home or self-care (01) ==
PROVIDERS: PCP Family Medicine Geriatric Medicine; Visit Provider Family Medicine Geriatric Medicine
DX: E55.9 Vitamin D deficiency, unspecified (principal); I10 Essential (primary) hypertension
CPT/HCPCS: 36415; 80053; 82306; 84443; 85025

== ENCOUNTER → 2021-10-15 | Outpatient (CLI) | payer MEDICARE, SELFPAY | END | disposition home or self-care (01) | PROVIDERS: PCP Family Medicine Geriatric Medicine; Referring Provider Family Medicine Geriatric Medicine; Visit Provider Family Medicine Geriatric Medicine | DX: Z00.00 Encounter for general adult medical examination without abnormal findings (principal) ==

== ENCOUNTER → 2022-02-03 | Outpatient (CLI) | payer MEDICARE, SELFPAY ==
[2022-02-03 17:56] LABS: Absolute Lymphocyte Count 2.39 X10^3/uL (0.83-4.51); Absolute Neutrophil Count 5.8 X10^3/uL (2.0-7.7); Basophil# 0.04 X10^3/uL; Basophil% 0.4 % (0-1); Eosinophil# 0.17 X10^3/uL; Eosinophils% 1.9 % (0-5); Hematocrit 38.5 % (37-47); Hemoglobin 12.2 g/dL (12.0-15.0); Lymphocyte # 2.39 X10^3/ul (0.83-4.51); Lymphocyte % 26.2 % (19-41); Mean Corp Hgb Conc 31.7 g/dL (32-36); Mean Corpuscular Hgb 26.8 pg (27.0-32.0); Mean Corpuscular Volume 84.6 fL (81-99); Monocyte# 0.73 X10^3/uL; NRBC Flagged by Analyzer 0 % (0-5); Neutrophil # 5.77 X10^3/uL (2.7-7.7); Neutrophil % 63.3 % (47-70); Platelet Count 329 K/mm3 (150-450); RBC Distribution Width CV 14.7 % (11.6-14.6); RBC Distribution Width SD 45.4 fl (35.1-43.9); Red Blood Count 4.55 M/mm3 (4.2-5.4); White Blood Count 9.1 K/mm3 (4.4-11.0)
[2022-02-03 18:06] LABS: Vitamin D,25 Hydroxy 44.4 ng/mL
[2022-02-03 18:11] LABS: ALB/GLOB Ratio 0.9 RATIO (0.9-2.4); AST(SGOT) 18 U/L (15-37); Alanine Aminotransfer ALT/SGPT 29 U/L (13-56); Albumin, Serum 3.7 g/dL (3.2-5.0); Alkaline Phosphatase 116 U/L (45-117); Anion Gap 5 (5-15); BUN 14 mg/dL (7-18); BUN/Creat Ratio 17.8 RATIO (10-20); Calcium,Total 9.7 mg/dL (8.5-10.1); Chloride 103 mmol/L (98-107); Creatinine, Serum 0.79 mg/dL (0.55-1.02); EST Glomerular Filtration Rate 79 mL/min (>60); Est Glom Filt Rate - Afr Amer 96 mL/min (>60); Globulin 4.1 g/dL (2.2-4.2); Glucose 81 mg/dL (74-106); Potassium 3.7 mmol/L (3.5-5.1); Protein, Total 7.8 g/dL (6.4-8.2); Sodium Level 141 mmol/L (136-145); Thyroid Stim Hormone (TSH) 1.11 uIU/mL (0.358-3.74)
== END | disposition home or self-care (01) ==
LOC: POLAB3 12:35
PROVIDERS: PCP Family Medicine Geriatric Medicine; Visit Provider Family Medicine Geriatric Medicine
DX: E55.9 Vitamin D deficiency, unspecified (principal); I10 Essential (primary) hypertension
CPT/HCPCS: 36415; 80053; 82306; 84443; 85025

== ENCOUNTER → 2022-02-27 | Outpatient (CLI) | payer MEDICARE, SELFPAY ==
--- NOTE | 2022-02-27 13:24 | CT_ITS ---
STUDY: CT ABDOMEN AND PELVIS WITHOUT CONTRAST REASON FOR EXAM: Female, 61 years old. Two-month history of generalized abdominal pain. 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 RADIATION DOSAGE (If Supplied By Facility): CTDIvol = ( 22.71 ) mGy, DLP = ( 1121.60 ) mGycm TECHNIQUE: Transaxial images were obtained from the dome of the diaphragm to the symphysis pubis without oral contrast, and without intravenous contrast. Sagittal and coronal images were reconstructed. Individualized dose optimization techniques were used for this CT. COMPARISON: Comparison is made with prior examination dated 12/16/2013. FINDINGS: Stable small calcified granuloma in the posteromedial segment of the right lobe. Coronary artery calcification. Normal liver. There are surgical clips in the gallbladder fossa consistent with a prior cholecystectomy. Normal spleen. Normal pancreas. Normal bilateral adrenal glands. Normal right kidney. Normal left kidney. The patient is status post subtotal gastrectomy. Normal small intestine. There are scattered colonic diverticula consistent with diverticulosis. The appendix is visualized and appears normal. Normal abdominal aorta. Normal inferior vena cava. Normal retroperitoneum. Normal urinary bladder. There is absence of the uterus consistent with a prior hysterectomy. There is a small umbilical hernia containing fat. Increased markings in the subcutaneous fat overlying the posterior aspect of the lower thoracic and lumbar spine suggestive of bone subcutaneous edema. There are diffuse degenerative changes of the visualized lumbar spine. CT/Abdomen/Pelvis without Cont IMPRESSION: The patient is status post subtotal gastrectomy. Patient is status post cholecystectomy. Electronically Signed: Bravo Weeks MD at 14:25 EST ,
--- NOTE | 2022-02-27 14:38 | RAD_ITS ---
INDICATION: CHEST PAIN EXAMINATION/TECHNIQUE: X-RAY - XR Chest 2 Views COMPARISON: None. FINDINGS: The lungs are clear. The cardiomediastinal silhouette is unremarkable. No pleural effusion or pneumothorax. Degenerative changes of the thoracic spine and shoulders. RAD/Chest PA and Lateral IMPRESSION: No acute radiographic abnormalities. Electronically Signed: Mike Moreno MD at 17:24 EST ,
--- NOTE | 2022-02-27 14:39 | RAD_ITS ---
INDICATION: THORACIC DISK DISEASE EXAMINATION/TECHNIQUE: X-RAY - XR Spine Thoracic 3 Views COMPARISON: None FINDINGS: VERTEBRAE: Preserved vertebral body height. No fracture. No spondylolisthesis. Preservation of the normal thoracic kyphosis. Mild multilevel facet arthropathy. DISCS: Mild multilevel degenerative disc disease and spondylosis. INCLUDED CHEST/ABDOMEN: No acute abnormalities. RAD/Thoracic Spine 3 Views IMPRESSION: No evidence of thoracic spinal fracture or spondylolisthesis. Mild multilevel degenerative disc disease and spondylosis. Electronically Signed: Mike Moreno MD at 17:27 EST ,
--- NOTE | 2022-02-27 14:39 | RAD_ITS ---
STUDY: X-RAY - LUMBAR SPINE REASON FOR EXAM: Female, 61 years old. THORACIC DISC DISEASE TECHNIQUE: 5 view(s) of the lumbar spine were obtained. COMPARISON: February 03, 2018 FINDINGS: Slight anterior wedging T11 unchanged. Slight retrolisthesis L1-2 and L2-3. Normal lumbar lordosis. There is no substantial scoliosis. There is a normal alignment of the vertebrae. Normal vertebral bodies and endplates. Normal disc space heights. The soft tissue structures are unremarkable. RAD/L/S Spine Min 4 Views IMPRESSION: Mild compression fracture T12, unchanged Electronically Signed: Alonso Moncada MD at 19:00 EST ,
== END | disposition home or self-care (01) ==
PROVIDERS: PCP Family Medicine Geriatric Medicine; Referring Provider Family Medicine Geriatric Medicine; Visit Provider Family Medicine Geriatric Medicine
DX: M51.9 Unspecified thoracic, thoracolumbar and lumbosacral intervertebral disc disorder (principal); R07.9 Chest pain, unspecified; R10.9 Unspecified abdominal pain
CPT/HCPCS: 71046; 72072; 72110; 74176

== ENCOUNTER → 2022-03-05 | Outpatient (CLI) | payer MEDICARE, SELFPAY ==
--- NOTE | 2022-03-05 13:24 | BI_ITS ---
MAMMOGRAPHY - BILATERAL SCREENING REASON FOR EXAM: Female, 61 years old. Routine annual screening examination. PERTINENT HISTORY: Non-contributory. TECHNIQUE: Digital bilateral breast penelope (3D mammographic acquisition) in the CC and MLO projections. 2-D mediolateral oblique (MLO) and craniocaudad (CC) views of both breasts were obtained. CAD: Full Field Digital Mammography with Computer Added Detection was performed. COMPARISON: Comparison is made with prior study 02/09/2020 and 11/25/2018. FINDINGS: Breast Composition: The breasts are almost entirely fatty. There are no dominant masses or suspicious calcifications. No other significant abnormalities are identified. There has been no significant change since the prior study. BI/SCRN MAMM (CAD)W/PENELOPE BILAT IMPRESSION: Stable bilateral screening mammogram. Yearly follow-up mammogram recommended. (A) ASSESSMENT CATEGORY: BIRADS Category 1: Negative. A letter regarding these results will be sent to the patient by the facility within 30 days. Approximately 10% of breast cancers are not detected by mammography. A normal mammogram should not delay biopsy of a clinically suspicious abnormality. [id number] Electronically Signed: Bravo Weeks MD at 14:17 EST ,
== END | disposition home or self-care (01) ==
LOC: OPBI 13:23
PROVIDERS: PCP Family Medicine Geriatric Medicine; Visit Provider Family Medicine Geriatric Medicine
DX: Z12.31 Encounter for screening mammogram for malignant neoplasm of breast (principal); Z13.89 Encounter for screening for other disorder
CPT/HCPCS: 77063; 77067

== ENCOUNTER → 2022-07-29 | Outpatient (CLI) | payer MEDICARE, SELFPAY ==
[2022-07-29 17:39] LABS: Absolute Lymphocyte Count 2.64 X10^3/uL (0.83-4.51); Absolute Neutrophil Count 8.2 X10^3/uL (2.0-7.7); Basophil# 0.05 X10^3/uL; Basophil% 0.4 % (0-1); Eosinophil# 0.13 X10^3/uL; Eosinophils% 1.1 % (0-5); Hematocrit 41.7 % (37-47); Hemoglobin 12.2 g/dL (12.0-15.0); Lymphocyte # 2.64 X10^3/ul (0.83-4.51); Lymphocyte % 22.4 % (19-41); Mean Corp Hgb Conc 29.3 g/dL (32-36); Mean Corpuscular Hgb 24.2 pg (27.0-32.0); Mean Corpuscular Volume 82.7 fL (81-99); Mean Platelet Vol. 9.9 fl (6.2-12.0); Monocyte# 0.76 X10^3/uL; Monocyte% 6.4 % (0-10); NRBC Flagged by Analyzer 0 % (0-5); Neutrophil # 8.18 X10^3/uL (2.7-7.7); Neutrophil % 69.3 % (47-70); Platelet Count 433 K/mm3 (150-450); RBC Distribution Width CV 16.5 % (11.6-14.6); RBC Distribution Width SD 48.9 fl (35.1-43.9); Red Blood Count 5.04 M/mm3 (4.2-5.4); White Blood Count 11.8 K/mm3 (4.4-11.0)
[2022-07-29 18:58] LABS: ALB/GLOB Ratio 0.8 RATIO (0.9-2.4); AST(SGOT) 22 U/L (15-37); Alanine Aminotransfer ALT/SGPT 25 U/L (13-56); Albumin, Serum 3.8 g/dL (3.2-5.0); Alkaline Phosphatase 137 U/L (45-117); Anion Gap 9 (5-15); BUN 16 mg/dL (7-18); BUN/Creat Ratio 15.5 RATIO (10-20); Calcium,Total 9.5 mg/dL (8.5-10.1); Chloride 101 mmol/L (98-107); Cholesterol 194 mg/dL (200); Creatinine, Serum 1.03 mg/dL (0.55-1.02); EST Glomerular Filtration Rate 58 mL/min (>60); Est Glom Filt Rate - Afr Amer 70 mL/min (>60); Globulin 4.6 g/dL (2.2-4.2); Glucose 103 mg/dL (74-106); High Density Lipoprotein 63 mg/dL; Protein, Total 8.4 g/dL (6.4-8.2); Sodium Level 139 mmol/L (136-145); Triglycerides 89 mg/dL; Very Low Density Lipoprotein 18 mg/dL (5-40)
== END | disposition home or self-care (01) ==
LOC: POLAB3 13:28
PROVIDERS: PCP Family Medicine Geriatric Medicine; Visit Provider Family Medicine Geriatric Medicine
DX: I10 Essential (primary) hypertension (principal)
CPT/HCPCS: 36415; 80053; 80061; 84443; 85025

== ENCOUNTER 2022-10-27 21:15 | Emergency (ER) | payer MEDICARE, SELFPAY ==
[2022-10-27 21:19] VITALS: BP 163/114; PULSE 116; RESP 18; TEMP 36.4; O2SAT 97; BMI 52.3
[2022-10-27] MEDS: Lidocaine/Epi/Tetracaine 50 ML 1 APPLIC TOPICAL (22:44)
[2022-10-27] MEDS: Lidocaine 1% (20 ml mdv) 20 ML Vial INFILT (22:44)
--- NOTE | 2022-10-27 22:55 | RAD_ITS ---
INDICATION: Injury to distal aspect of right 4th finger EXAMINATION/TECHNIQUE: X-RAY - RIGHT HAND XR Fingers Min 2 Views: 3 views 4th digit right hand COMPARISON: None. FINDINGS: Soft tissue swelling distal 4th digit. Fracture tuft of 4th distal phalanx demonstrates approximately 3 mm cortical distraction. Joint spaces are preserved with no dislocation. RAD/Finger(s) Min 2 Views IMPRESSION: Partially displaced tuft fracture right 4th finger Electronically Signed: Shashank Carter MD at 23:32 EDT ,
[2022-10-28 01:31] VITALS: PULSE 70; RESP 16; O2SAT 97
--- NOTE | 2022-10-28 01:31 | EX.ED.UPPERE ---
HPI History of Present Illness Chief Complaint: Laceration Informant: patient Narrative Narrative: Patient sustained and an injury to her right ring finger. She is right-hand dominant. She had used a new pair of scissors to cut a photograph, and set them down, she was in a house where she was dog sitting and then the dog who was a fairly good-sized dog grabbed the scissors with his mouth and ran away with them. She tried to get the scissors back and in doing so injured her ring finger severely, she thinks it was the scissors that did it but really unclear if it was the dog's mouth or the scissors themselves because it happened so quickly. She takes no antiplatelet or anticoagulant medications. Tetanus Immunization: >10 years [facility] Medical History Anxiety Arthritis Easy bruising Gastric reflux History of edema History of pain when walking History of stress test HTN (hypertension) Non-smoker Shortness of breath on exertion Wears contact lenses Home Medications cholecalciferol (vitamin D3) 25 mcg (1,000 unit) capsule 1,000 unit PO DAILY supplement 12/16/13 [History Last Taken 07/13/18] losartan 25 mg tablet 25 mg PO DAILY blood pressure 12/16/13 [History Last Taken 01/18/19 05:15] multivitamin with folic acid 400 mcg tablet 1 tab PO DAILY supplement 07/13/18 [History Last Taken 07/13/18] paroxetine HCl 40 mg tablet 40 mg PO QHS mental health 07/13/18 [History Last Taken 07/12/18] calcium carbonate 500 mg calcium (1,250 mg) tablet (Calcium 500) 500 mg PO DAILY 12/21/19 [History Last Taken Unknown] omeprazole 20 mg capsule,delayed release 20 mg PO DAILY 12/21/19 [History Last Taken Unknown] potassium gluconate 2 mEq tablet 20 meq PO BID 12/21/19 [History Last Taken Unknown] doxepin 100 mg capsule 100 mg PO QHS 03/19/20 [History Last Taken Unknown] hydrocodone-acetaminophen 5-325mg 5mg-325mg 1 tab PO Q6H PRN pain 7 days #28 tabs 12/31/20 [Rx Last Taken Unknown] hydrocodone 5 mg-acetaminophen 300 mg tablet 1 tab PO Q6H PRN pain 7 days #28 tabs 01/10/21 [Rx Last Taken Unknown] amoxicillin 875 mg-potassium clavulanate 125 mg tablet 875 mg (0.875 x 875-125 mg) PO Q12H #20 TABLETS 10/28/22 [Rx Last Taken Unknown] oxycodone-acetaminophen 5 mg-325 mg tablet 1 tab PO Q6H PRN PRN Pain 3 days #12 TABLETS 10/28/22 [Rx Last Taken Unknown] Allergy/AdvReac Type Severity Reaction Status Date / Time amlodipine [From [facility]] AdvReac Other Verified 10/27/22 21:19 lisinopril AdvReac Other Verified 10/27/22 21:19 Surgical History (Updated 12/31/20 @ 12:01 by Jennifer Dick) H/O: hysterectomy Hx laparoscopic cholecystectomy Hx of bariatric surgery Hx of bladder repair surgery Hx of colonoscopy Hx of total knee arthroplasty Hx of total knee arthroplasty Social History Smoking Status: Never smoker ROS ROS ED Constitutional Constitutional ED: Denies chills or fever(s) Musculoskeletal Musculoskeletal: Reports extremity pain; Denies neck pain Integumentary Reports wounds; Denies Abrasions or rash Neurologic Neurologic: Denies paresthesias or weakness EXAM Physical Exam Const Vital Signs: 10/27/22 21:19 Temperature 97.6 F L Temperature Source Temporal Pulse Rate 116 H Respiratory Rate 18 Blood Pressure 163/114 H Blood Pressure Mean 130 Pulse Ox 97 Oxygen Delivery Method Room Air Positive well nourished and well developed General Appearance ED: well developed and NAD Neck full ROM and supple Back/Spine normal ROM and normal to inspection Extremity Extremity Narrative: Right ring fingertip is injured, no other apparent injuries to the extremities: At the ulnar side of the fingertip, there is a laceration that goes from the middle of the finger pad around, through the nailbed, and completely the base/root of the nail which is still intact in the nail fold from the distal piece, and the separation point is at the base of an acrylic nail that is attached to the real nail. The injury goes through both and also includes the nailbed to the point where the fingertip is nearly amputated but still attached throughout the radial side. FDS function and FDP function all intact, and patient able to extend. Neuro oriented x3, no focal motor deficits and no sensory deficits noted Sensorium / Orientation: alert Psych mental status grossly normal and thought process normal Skin Skin Narrative: Right ring finger tip laceration approximately 2.5 cm total involving the nailbed, see above. Clean outside of the nailbed, the nailbed is slightly macerated but there is no tissue loss, and there is no evidence of gross contamination. Rashes: no rashes MDM MDM MDM Narrative Medical decision making narrative: Three-view x-ray series of the right ring finger confirm that there is a transverse displaced fracture of the distal phalanx on my interpretation, and confirmed by radiology. Digital block was performed. Then, the distal part of the nail was detached from the nailbed and discarded, in order to allow repair of the nailbed and the rest of the laceration. See the procedure note. In repairing this, the proximal part of the nail that was still adherent to the uninjured nailbed had a shard that was sharp at the ulnar side, protruding more distally. This was gently excised after ensuring it was free from the underlying nailbed, approximately 1 mm? of nail was excised. The nailbed injury/laceration was about a millimeter distal to the nail edge of the proximal nail, however this tissue was not able to hold 5-0 sutures so they were placed through the proximal nail itself. All landmarks were well opposed, and the finger was in anatomic position at the end of the repair. It was dressed with bacitracin, Vaseline gauze, a bulky dressing in addition to a an aluminum cage finger splint. She will be referred to hand surgery at [facility], she will be placed on analgesics and Augmentin to cover staph, strep, as well as the potential for this being contaminated by a dog bite. If it takes them more than a week to get into see the hand specialist, I recommend changing the dressing every 3 days or so at the least, and we discussed doing that. Radiography Diagnostic Testing: Clinical Impression(s) from Imaging Studies Finger X-Ray 10/27/22 22:55 IMPRESSION: Partially displaced tuft fracture right 4th finger Electronically Signed: Shashank Carter MD at 23:32 EDT , Procedures Lacerations R ring finger: Length: 2.5 cm Depth: Sub Q Shape: irreg, involving nail bed Prep: Sterile Conditions and Chlorhexadine Laceration repair: Digital block (total of 7cc plain 1% lidocaine dorsal approach near MCPJ), Irrigated (high pressure sterile saline), Skin sutures, Subcutaneous sutures and - (tornicot applied after irrigation/sterile prep for total of 35 min) Irrigated (ml): 60 Number of Sutures/[place]: 8 (total) Suture Information: Vicryl (nail bed 5-0 #3), Ethilon (5-0 #5) and Simple Upper Extremity Splints Upper Extremity Splint: Alumifoam (cage) Splint Fabrication: Fabricated Location: Right (ring finger; NVID within limits of exam due to recent digital block) Discharge Plan Triage Chief Complaint: Laceration ED Provider: Thomas Lou Dx/Rx/DC Orders Clinical Impression: Open fracture of distal phalanx of right ring finger, Laceration of finger nail bed Instructions: ED Fracture, Finger, Open, ED Laceration, Hand: All Closures Prescriptions: New oxycodone-acetaminophen [oxycodone-acetaminophen] 5-325 mg tablet 1 tab PO Q6H PRN PRN (Reason: Pain) 3 Days Qty: 12 0RF amoxicillin-pot clavulanate [amoxicillin-pot clavulanate] 875-125 mg tablet 875 mg PO Q12H Qty: 20 0RF No Action calcium carbonate [Calcium 500] 500 mg calcium (1,250 mg) tablet 500 mg PO DAILY potassium gluconate 2 mEq tablet 2 mEq tablet 20 meq PO BID omeprazole 20 mg capsule,delayed release(DR/EC) 20 mg PO DAILY losartan 25 MG tablet 25 mg PO DAILY Patient Comments: BLOOD PRESSURE cholecalciferol (vitamin D3) 1,000 UNIT capsule 1,000 unit PO DAILY Patient Comments: SUPPLIMENT paroxetine HCl 40 MG tablet 40 mg PO QHS multivitamin with folic acid 1 TABLET tablet 1 tab PO DAILY doxepin 100 MG capsule 100 mg PO QHS hydrocodone-acetaminophen 5-325 mg tablet 1 tab PO Q6H PRN (Reason: pain) 7 Days Qty: 28 0RF hydrocodone-acetaminophen 5-300 mg tablet 1 tab PO Q6H PRN (Reason: pain) 7 Days Qty: 28 0RF Primary Care Provider: Toan Moore Chi Referrals: [facility] [Outside] - As soon as possible (call for appt with [facility] ([address], [address]) -- [phone]) Toan Moore Chi, MD [Primary Care Provider] - Disposition Disposition: Home, Self Care Discharge Date/Time: 10/28/22 01:52
[2022-10-28] MEDS: oxyCODONE 5 MG Tablet PO (01:44)
[2022-10-28] MEDS: Amox/Clavulanate 875 MG Tablet PO (01:44)
== END 2022-10-28 01:52 | disposition home or self-care (01) ==
PROVIDERS: Emergency Provider Emergency Medicine; PCP Family Medicine Geriatric Medicine; Visit Provider Emergency Medicine
DX: S62.634B Displaced fracture of distal phalanx of right ring finger, initial encounter for open fracture (principal); I10 Essential (primary) hypertension; W27.2XXA Contact with scissors, initial encounter; Y93.89 Activity, other specified; Y99.8 Other external cause status; Y92.019 Unspecified place in single-family (private) house as the place of occurrence of the external cause; K21.9 Gastro-esophageal reflux disease without esophagitis; Z79.899 Other long term (current) drug therapy; M19.90 Unspecified osteoarthritis, unspecified site
CPT/HCPCS: 12041; 11760; 73140; 99284

== ENCOUNTER → 2023-02-18 | Outpatient (CLI) | payer MEDICARE, SELFPAY ==
[2023-02-18 11:21] LABS: Absolute Lymphocyte Count 2.07 X10^3/uL (0.83-4.51); Absolute Neutrophil Count 4.6 X10^3/uL (2.0-7.7); Basophil# 0.03 X10^3/uL; Basophil% 0.4 % (0-1); Eosinophil# 0.15 X10^3/uL; Hematocrit 38.4 % (37-47); Lymphocyte # 2.07 X10^3/ul (0.83-4.51); Lymphocyte % 28.2 % (19-41); Mean Corp Hgb Conc 28.6 g/dL (32-36); Mean Corpuscular Hgb 22.9 pg (27.0-32.0); Mean Corpuscular Volume 79.8 fL (81-99); Mean Platelet Vol. 9.9 fl (6.2-12.0); Monocyte# 0.47 X10^3/uL; Monocyte% 6.4 % (0-10); NRBC Flagged by Analyzer 0 % (0-5); Neutrophil # 4.59 X10^3/uL (2.7-7.7); Neutrophil % 62.7 % (47-70); Platelet Count 348 K/mm3 (150-450); RBC Distribution Width CV 17.2 % (11.6-14.6); Red Blood Count 4.81 M/mm3 (4.2-5.4); White Blood Count 7.3 K/mm3 (4.4-11.0)
[2023-02-18 11:44] LABS: ALB/GLOB Ratio 0.8 RATIO (0.9-2.4); AST(SGOT) 21 U/L (15-37); Alanine Aminotransfer ALT/SGPT 31 U/L (13-56); Albumin, Serum 3.3 g/dL (3.2-5.0); Alkaline Phosphatase 124 U/L (45-117); Anion Gap 4 (5-15); BUN 12 mg/dL (7-18); BUN/Creat Ratio 12.1 RATIO (10-20); Calcium,Total 8.9 mg/dL (8.5-10.1); Chloride 105 mmol/L (98-107); Cholesterol 162 mg/dL (200); Creatinine, Serum 0.99 mg/dL (0.55-1.02); EST Glomerular Filtration Rate 60 mL/min (>60); Est Glom Filt Rate - Afr Amer 73 mL/min (>60); Globulin 4.4 g/dL (2.2-4.2); Glucose 145 mg/dL (74-106); High Density Lipoprotein 52 mg/dL; Potassium 3.5 mmol/L (3.5-5.1); Protein, Total 7.7 g/dL (6.4-8.2); Sodium Level 139 mmol/L (136-145); Thyroid Stim Hormone (TSH) 0.84 uIU/mL (0.358-3.74); Triglycerides 107 mg/dL; Very Low Density Lipoprotein 21 mg/dL (5-40)
== END | disposition home or self-care (01) ==
LOC: POLAB3 09:03
PROVIDERS: PCP Family Medicine Geriatric Medicine; Visit Provider Family Medicine Geriatric Medicine
DX: I10 Essential (primary) hypertension (principal); E78.5 Hyperlipidemia, unspecified
CPT/HCPCS: 36415; 80053; 80061; 84443; 85025

== ENCOUNTER → 2023-10-05 | Outpatient (CLI) | payer MEDICARE, SELFPAY ==
--- NOTE | 2023-10-05 07:52 | EKG12_ITS ---
Test Reason : HTN,INCREASED BMI Blood Pressure : / mmHG Vent. Rate : 091 BPM Atrial Rate : 091 BPM P-R Int : 152 ms QRS Dur : 088 ms QT Int : 368 ms P-R-T Axes : 059 -49 048 degrees QTc Int : 452 ms Normal sinus rhythm Left axis deviation Abnormal ECG Confirmed by Chuck Ernst ([id number]), videotape editor DELVIN JACKSON ([id number]) on 10/06/2023 7:19:12 AM Referred By: Bethany Johnson Confirmed By:Chuck Ernst
--- NOTE | 2023-10-05 08:16 | BI_ITS ---
MAMMOGRAPHY - BILATERAL SCREENING REASON FOR EXAM: Female, 63 years old. Routine annual screening examination. PERTINENT HISTORY: Non-contributory. TECHNIQUE: Digital bilateral breast penelope (3D mammographic acquisition) in the CC and MLO projections. 2-D mediolateral oblique (MLO) and craniocaudad (CC) views of both breasts were obtained. CAD: Full Field Digital Mammography with Computer Added Detection was performed. COMPARISON: Comparison is made with prior study of March 05, 2022 and February 09, 2020. FINDINGS: Breast Composition: The breasts are almost entirely fatty. There are no dominant masses or suspicious calcifications. No other significant abnormalities are identified. There has been no significant change since the prior study. BI/SCRN MAMM (CAD)W/PENELOPE BILAT IMPRESSION: Stable bilateral screening mammogram. Yearly follow-up mammogram recommended. (A) ASSESSMENT CATEGORY: BIRADS Category 1: Negative. A letter regarding these results will be sent to the patient by the facility within 30 days. Approximately 10% of breast cancers are not detected by mammography. A normal mammogram should not delay biopsy of a clinically suspicious abnormality. [id number] Electronically Signed: Bravo Weeks MD at 12:20 EDT ,
== END | disposition home or self-care (01) ==
LOC: PSN 07:52
PROVIDERS: PCP Family Medicine Geriatric Medicine; Referring Provider Nurse Practitioner Family; Visit Provider Nurse Practitioner Family
DX: Z12.31 Encounter for screening mammogram for malignant neoplasm of breast (principal); I10 Essential (primary) hypertension
CPT/HCPCS: 77063; 77067; 93005

== ENCOUNTER 2023-12-30 11:32 | Outpatient (CLI) | payer MEDICARE, SELFPAY ==
[2023-12-30 12:18] LABS: Basophil# 0.05 X10^3/uL; Basophil% 0.6 % (0-1); Eosinophil# 0.17 X10^3/uL; Eosinophils% 2.1 % (0-5); Hematocrit 37.6 % (37-47); Hemoglobin 11.1 g/dL (12.0-15.0); Mean Corp Hgb Conc 29.5 g/dL (32-36); Mean Corpuscular Hgb 23.2 pg (27.0-32.0); Mean Corpuscular Volume 78.5 fL (81-99); Mean Platelet Vol. 9.5 fl (6.2-12.0); Monocyte# 0.64 X10^3/uL; Monocyte% 7.8 % (0-10); NRBC Flagged by Analyzer 0 % (0-5); Neutrophil # 5.02 X10^3/uL (2.7-7.7); Neutrophil % 61.5 % (47-70); Platelet Count 338 K/mm3 (150-450); RBC Distribution Width CV 16.9 % (11.6-14.6); RBC Distribution Width SD 47.8 fl (35.1-43.9); Red Blood Count 4.79 M/mm3 (4.2-5.4); White Blood Count 8.2 K/mm3 (4.4-11.0)
[2023-12-30 12:51] LABS: Vitamin D,25 Hydroxy 39.5 ng/mL
[2023-12-30 12:56] LABS: ALB/GLOB Ratio 0.8 RATIO (0.9-2.4); AST(SGOT) 23 U/L (15-37); Alanine Aminotransfer ALT/SGPT 28 U/L (13-56); Albumin, Serum 3.3 g/dL (3.2-5.0); Alkaline Phosphatase 126 U/L (45-117); Anion Gap 4 (5-15); BUN 11 mg/dL (7-18); BUN/Creat Ratio 13.8 RATIO (10-20); Calcium,Total 9.6 mg/dL (8.5-10.1); Chloride 103 mmol/L (98-107); Cholesterol 177 mg/dL (200); EST Glomerular Filtration Rate 77 mL/min (>60); Est Glom Filt Rate - Afr Amer 93 mL/min (>60); Globulin 4.3 g/dL (2.2-4.2); Glucose 93 mg/dL (74-106); High Density Lipoprotein 55 mg/dL; Potassium 3.7 mmol/L (3.5-5.1); Protein, Total 7.6 g/dL (6.4-8.2); Sodium Level 139 mmol/L (136-145); T4 Free Direct 1.04 ng/dL (0.76-1.46); Triglycerides 150 mg/dL; Very Low Density Lipoprotein 30 mg/dL (5-40)
== END 2023-12-30 23:59 | disposition home or self-care (01) ==
LOC: LAB 11:34
PROVIDERS: PCP Family Medicine Geriatric Medicine; Referring Provider Nurse Practitioner Family; Visit Provider Nurse Practitioner Family
DX: I10 Essential (primary) hypertension (principal)
CPT/HCPCS: 36415; 80053; 80061; 82306; 83036; 84439; 84443; 85025

== ENCOUNTER → 2024-03-02 | Outpatient (CLI) | payer MEDICARE, SELFPAY ==
[2024-03-02 11:20] LABS: Absolute Lymphocyte Count 3.47 X10^3/uL (0.83-4.51); Absolute Neutrophil Count 6.7 X10^3/uL (2.0-7.7); Basophil# 0.04 X10^3/uL; Basophil% 0.3 % (0-1); Eosinophil# 0.14 X10^3/uL; Eosinophils% 1.2 % (0-5); Hematocrit 39.4 % (37-47); Hemoglobin 11.7 g/dL (12.0-15.0); Lymphocyte # 3.47 X10^3/ul (0.83-4.51); Lymphocyte % 30.4 % (19-41); Mean Corp Hgb Conc 29.7 g/dL (32-36); Mean Corpuscular Hgb 23.3 pg (27.0-32.0); Mean Corpuscular Volume 78.3 fL (81-99); Mean Platelet Vol. 9.2 fl (6.2-12.0); Monocyte# 1.07 X10^3/uL; Monocyte% 9.4 % (0-10); NRBC Flagged by Analyzer 0 % (0-5); Neutrophil # 6.67 X10^3/uL (2.7-7.7); Neutrophil % 58.4 % (47-70); Platelet Count 400 K/mm3 (150-450); RBC Distribution Width CV 16.9 % (11.6-14.6); RBC Distribution Width SD 47.7 fl (35.1-43.9); Red Blood Count 5.03 M/mm3 (4.2-5.4); White Blood Count 11.4 K/mm3 (4.4-11.0)
[2024-03-02 11:50] LABS: ALB/GLOB Ratio 0.7 RATIO (0.9-2.4); AST(SGOT) 25 U/L (15-37); Alanine Aminotransfer ALT/SGPT 26 U/L (13-56); Albumin, Serum 3.4 g/dL (3.2-5.0); Alkaline Phosphatase 133 U/L (45-117); Anion Gap 7 (5-15); BUN 14 mg/dL (7-18); BUN/Creat Ratio 16.5 RATIO (10-20); Calcium,Total 9.4 mg/dL (8.5-10.1); Chloride 99 mmol/L (98-107); Cholesterol 188 mg/dL (200); Creatinine, Serum 0.85 mg/dL (0.55-1.02); EST Glomerular Filtration Rate 72 mL/min (>60); Est Glom Filt Rate - Afr Amer 87 mL/min (>60); Globulin 4.8 g/dL (2.2-4.2); Glucose 83 mg/dL (74-106); High Density Lipoprotein 66 mg/dL; Potassium 3.5 mmol/L (3.5-5.1); Protein, Total 8.2 g/dL (6.4-8.2); Sodium Level 138 mmol/L (136-145); Triglycerides 118 mg/dL; Very Low Density Lipoprotein 24 mg/dL (5-40)
== END | disposition home or self-care (01) ==
PROVIDERS: PCP Family Medicine Geriatric Medicine; Visit Provider Family Medicine Geriatric Medicine
DX: I10 Essential (primary) hypertension (principal); E78.5 Hyperlipidemia, unspecified
CPT/HCPCS: 36415; 80053; 80061; 84443; 85025

== ENCOUNTER 2024-06-09 11:10 | Day surgery (SDC) | payer MEDICARE, SELFPAY ==
[2024-06-09] VITALS (8 sets, daily range): BP systolic 95–154; BP diastolic 64–92; PULSE 90–97; RESP 16–18; TEMP 36.5–37; O2SAT 92–95; BMI 52.0
--- NOTE | 2024-06-09 11:43 | PCM.HP.STD ---
HPI - General General Date of Admission: 06/09/24 Date of Service: 06/09/24 Chief Complaint: abdominal pain HPI Narrative JONELLE RUIZ, is a 64 F who presents for endoscopic evaluation of abdominal pain. Pt referred her to us from her PCP Dr. Moore for abd/epigastric discomfort. Pt has a hx of an abd tumor removed about 8 years ago. She is unable to tell me if the tumor was in her GI tract or outside of it. She does not remember where she had it removed or how they found it. Upon chart review and [facility] search, I am unable to locate any imaging or scopes that would have found this. I am unable to locate the surgery report. The discomfort she is having feels similar to when she had the tumor. She has some nausea but no vomiting. Her last colonoscopy was about 6 years ago she recalls. SHe has never had an EGD to her knowledge. She denies constipation, diarrhea, heartburn,or vomiting. SHe has not had any unintentional weight loss, fevers or blood in her stool. [facility] Medical History Wears glasses Post-menopausal Cardiology follow-up encounter Vision problems Vascular disease Tumor Rheumatoid arthritis Pancreatitis Hypocalcemia Gallstones Diabetes Carpal tunnel syndrome Screening for breast cancer Wears contact lenses Arthritis Easy bruising Gastric reflux Non-smoker Shortness of breath on exertion History of pain when walking History of edema History of stress test Anxiety HTN (hypertension) Home Medications ?Medication ?Instructions ?Recorded ?Last Taken ?Type cholecalciferol (vitamin D3) 25 1,000 unit PO DAILY supplement 12/16/13 07/13/18 History mcg (1,000 unit) capsule multivitamin with folic acid 400 1 tab PO DAILY supplement 07/13/18 07/13/18 History mcg tablet paroxetine HCl 40 mg tablet 40 mg PO Q mental health 07/13/18 07/12/18 History naproxen sodium 220 mg capsule 220 mg PO BID PRN pain 09/14/23 Unknown History potassium chloride 20 mEq 20 meq PO BID 10/20/23 Unknown History tablet,extended release ascorbic acid (vitamin C) 500 mg 500 mg PO QDAY 04/26/24 Unknown History tablet calcium 300 mg (carb, 1 tab PO BID 04/26/24 Unknown History citrate)-magnesium 150 mg-vit D3 400 unit tablet doxepin 150 mg capsule 150 mg PO QHS 04/26/24 Unknown History losartan 100 1 tab PO DAILY 04/26/24 Unknown History mg-hydrochlorothiazide 12.5 mg tablet omeprazole 40 mg capsule,delayed 40 mg PO DAILY 04/26/24 Unknown History release Allergy/AdvReac Type Severity Reaction Status Date / Time amlodipine (From [facility]) AdvReac Other Verified 06/09/24 11:31 lisinopril AdvReac Other Verified 06/09/24 11:31 Family History Sister Cancer Metastatic papillary Thyroid cancer Mother Hypertension Father Myocardial infarction Surgical History History of cholecystectomy Hx of colonoscopy Hx of bladder repair surgery Hx laparoscopic cholecystectomy Hx of bariatric surgery Hx of total knee arthroplasty Hx of total knee arthroplasty H/O: hysterectomy Social History household members: spouse current occupational status: employed current occupation: Parttime [employer] Smoking Status: Never smoker alcohol intake: never substance use type: does not use caffeine: No seatbelt use: always do you feel safe at home: Yes additional social history: - [employer]Ret[employer] Constitutional Constitutional: Denies fatigue, fever(s), poor appetite, weight gain or weight loss Gastrointestinal Gastrointestinal: Denies belching, bloating, change in bowel habits, change in stool character, chewing difficulty, coffee ground emesis, constipation, cramping, diarrhea, dyspepsia, dysphagia, early satiety, excessive flatus, fecal incontinence, heartburn, hematemesis, hematochezia, hemorrhoids, loose stools, melena, nausea, odynophagia, rectal bleeding, tenesmus, vomiting or weight changes Vital Signs Vital Signs Vital Signs: 06/09/24 11:31 06/09/24 11:31 Temperature 98.6 F Temperature Source Temporal Pulse Rate 95 Respiratory Rate 18 Respiratory Pattern Normal Blood Pressure 154/92 H Blood Pressure Mean 112 Blood Pressure Source Monitor Blood Pressure Position Sitting Blood Pressure Location Left Arm Pulse Ox 94 Oxygen Delivery Method Room Air Weight Weight: 284 lb 6.341 oz Body Mass Index (BMI) 52.0 Physical Exam Const alert, oriented x3, no apparent distress and healthy appearing General Appearance: cooperative GI normal to inspection, nondistended, normoactive bowel sounds, soft to palpation, non-tender and non-distended Percussion: normal to percussion Rectal Exam: deferred Assessment & Plan Assessment/Plan (1) Epigastric abdominal pain: PLAN: Assessment and Plan Assessment and Plan (1) Epigastric abdominal pain: Status: Acute Plan: This is a 63 yo female pt here today for evaluation of epigastric abdominal discomfort. Per pt report she had an abdominal tumor in the past and her discomfort feels similar to when she had this. She is unsure where the tumor was in her abd or at what facility she had this removed at. I was unable to find any imaging indicating this or surgical note in chart or in clinisync. Will start work up with abd/pelvis CT to exclude diagnosis of mass in the abd. -CT abd/pelvis -f/u in 3 months Orders: Orders Abdomen/Pelvis WITH Contrast Today R10.13 - Epigastric pain
--- NOTE | 2024-06-09 12:20 | PCM.PRE.AN2 ---
ASA Classification* ASA Classification ASA Classification: 4 (Morbid obesity. Plan for possible nasal trumpet need during case, have ready. Have on facemask. May need chin lift. Would consider giving glyco + ketamine to maintain spontaneous respiration. Have intubating equipment ready, have glidescope nearby. Prior to induction, preoxygenate to 100%) Assessment & Plan Anesthesia* Anesthesia Assessment Anesthesia Assessment: Discussed sedation and/or anesthesia options, risks, benefits, and alternatives with patient/parents/legal guardian/POA. Questions invited. The patient/parents/legal guardian/POA seems to understand and agrees to proceed with anesthesia plan. Reviewed the physical assessment, medical history, allergy history and patient home medications list prior to surgery/procedure/anesthetic and documented any changes. Performed airway and anesthesia risk assessments. Anesthesia Type Anesthesia Type: General History Source History Obtained from:: Patient and Chart Anesthesia Focused Assessment* Temperature: 98.6 F Pulse Rate: 95 Blood Pressure: 154/92 Respiratory Rate: 18 Pulse Ox: 94 Oxygen Delivery Method: Room Air Airway Assessment Mouth opens: 2 cm Mallampati Score: IV Teeth Condition: Intact and Missing (several) Neck Range of motion (ROM): Full ROM Focused Labs Anesthesia Preop lab: CBC WBC 11.4 K/mm3 (4.4-11.0) H 03/02/24 11:03/02/24 RBC 5.03 M/mm3 (4.2-5.4) 03/02/24 11:03/02/24 Hgb 11.7 g/dL (12.0-15.0) L 03/02/24 11:03/02/24 Hct 39.4 % (37-47) 03/02/24 11:03/02/24 Plt Count 400 K/mm3 (150-450) 03/02/24 11:03/02/24 CHEMISTRY Potassium 3.5 mmol/L (3.5-5.1) 03/02/24 11:03/02/24 Sodium 138 mmol/L (136-145) 03/02/24 11:03/02/24 Magnesium 2.0 mg/dL (1.6-2.6) 05/31/20 09:59 05/31/20 BUN 14 mg/dL (7-18) 03/02/24 11:09 03/02/24 Creatinine 0.85 mg/dL (0.55-1.02) 03/02/24 11:09 03/02/24 Glucose 83 mg/dL (74-106) 03/02/24 11:09 03/02/24 POC Glucose 97 mg/dL (70-110) 06/05/20 06:04 06/05/20 TSH 1.480 uIU/mL (0.358-3.740) 03/02/24 11:09 03/02/24 COAG PT 12.4 SECONDS (11.7-14.9) 03/27/20 09:42 03/27/20 Pre-Assessment Diagnosis/Proposed Procedure Planned Operative Procedure(s): EGD Anesthesia History Anesthesia History - anesthesiologist and critical care: Anesthesia History - anesthesiologist and critical care Hx Hospitalization No 06/03/24 13:48 Any Problems With Anesthesia No 06/03/24 13:48 Cholinesterase deficiency No 06/03/24 13:48 You/Your Family Experience No 06/03/24 13:48 fever (hyperthermia) with Relationship Recent Exposure to Contagious No 06/09/24 11:31 Disease Does patient have nerve No 06/03/24 13:48 stimulator Patient instructed to have device shut off --Does patient have Pacemaker No 06/09/24 11:31 or ICD? When Was Last Pacemaker Check QUESTION #4 FULL TEXT: You/Your Family Experience fever (hyperthermia) with Anesthesia Last Oral Intake Last Oral intake: Last Oral Intake NPO since 00:00 06/09/24 11:31 Meds taken in AM with sips of No 06/09/24 11:31 water? Meds patient instructed to take am of surgery PONV PONV - anesthesiologist and critical care: PONV - anesthesiologist and critical care Female Yes 06/03/24 13:48 HX of Motion Sickness No 06/03/24 13:48 HX of N/V After Surgery No 06/03/24 13:48 Non-Smoker Yes 06/03/24 13:48 Duration of Surgery greater No 06/03/24 13:48 than 60 minutes Number of Risk Factors 2 06/03/24 13:48 PONV Score Moderate Risk 06/03/24 13:48 Height & Weight Height & Weight: Anesthesia: Height & Weight Height 5 ft 2 in 06/09/24 11:31 Weight: 129 kg 06/09/24 11:31 Body Mass Index (BMI) 52.0 06/09/24 11:31 Respiratory Assessment Respiratory Assessment - anesthesiologist and critical care: Respiratory Tract Infection Hx - anesthesiologist and critical care Hx Respiratory Tract Infection No 06/03/24 13:48 STOP Sleep Apnea STOP Sleep Apnea - anesthesiologist and critical care: STOP Sleep Apnea - anesthesiologist and critical care Hx Hypertension Yes 06/03/24 13:48 Hx Sleep Apnea No 06/03/24 13:48 CPAP No 01/04/21 12:25 BIPAP No 05/28/20 13:16 Do you snore loudly (louder No 06/03/24 13:48 than talking or can be heard Do you often feel tired/ No 06/03/24 13:48 fatigued/ sleepy during daytime? Has anyone observed you stop No 06/03/24 13:48 breathing during sleep? STOP Results Negative 06/03/24 13:48 QUESTION #5 FULL TEXT : Do you snore loudly (louder than talking or can be heard through closed doors)? Tobacco Use History Tobacco Use History - anesthesiologist and critical care: Tobacco Use History - anesthesiologist and critical care Tobacco Use Smoking Status Never smoker 06/03/24 13:48 Hx Tobacco Use No 06/03/24 13:48 Years Smoking Packs Smoked per Day Smoking Cessation Date was within the last 15 years Hx Smoking Cessation Date Hx Smoking Cessation Counseling Hematologic Medial History Hematologic Hx - anesthesiologist and critical care: Hematologic Medical Hx - handkerchief sample clerk Hx of Blood Transfusion No 06/03/24 13:48 Hx of Transfusion in last 3 No 06/03/24 13:48 Months Date of Last Transfusion (if within last 3 months) Ever experience any problems No 06/03/24 13:48 with transfusion(s)? Specify any problems Hx of Preganancy in last 3 No 06/03/24 13:48 Months Nurse Filling Out Transfusion VLEHMAN 06/03/24 13:48 & Questions: Date: 06/03/24 06/03/24 13:48 Time: 13:55 06/03/24 13:48 Patient unable to answer at this time (ie. confused, unrespo /Reproduction History /Reproductive History - anesthesiologist and critical care: /Reproductive Hx- anesthesiologist and critical care Hx Now No 06/03/24 13:48 Gestational Age (in weeks): EDC: Hx Hx Para Hx Section SAB No 03/21/24 10:27 PFSH Medical History Wears glasses Post-menopausal Cardiology follow-up encounter Vision problems Vascular disease Tumor Rheumatoid arthritis Pancreatitis Hypocalcemia Gallstones Diabetes Carpal tunnel syndrome Screening for breast cancer Wears contact lenses Arthritis Easy bruising Gastric reflux Non-smoker Shortness of breath on exertion History of pain when walking History of edema History of stress test Anxiety HTN (hypertension) Home Medications ?Medication ?Instructions ?Recorded ?Last Taken ?Type cholecalciferol (vitamin D3) 25 1,000 unit PO DAILY supplement 12/16/13 07/13/18 History mcg (1,000 unit) capsule multivitamin with folic acid 400 1 tab PO DAILY supplement 07/13/18 07/13/18 History mcg tablet paroxetine HCl 40 mg tablet 40 mg PO QHS mental health 07/13/18 07/12/18 History naproxen sodium 220 mg capsule 220 mg PO BID PRN pain 09/14/23 Unknown History potassium chloride 20 mEq 20 meq PO BID 10/20/23 Unknown History tablet,extended release ascorbic acid (vitamin C) 500 mg 500 mg PO QDAY 04/26/24 Unknown History tablet calcium 300 mg (carb, 1 tab PO BID 04/26/24 Unknown History citrate)-magnesium 150 mg-vit D3 400 unit tablet doxepin 150 mg capsule 150 mg PO QHS 04/26/24 Unknown History losartan 100 1 tab PO DAILY 04/26/24 Unknown History mg-hydrochlorothiazide 12.5 mg tablet omeprazole 40 mg capsule,delayed 40 mg PO DAILY 04/26/24 Unknown History release Allergy/AdvReac Type Severity Reaction Status Date / Time amlodipine (From Norvas) AdvReac Other Verified 06/09/24 11:31 lisinopril AdvReac Other Verified 06/09/24 11:31 Family History Sister Cancer Metastatic papillary Thyroid cancer Mother Hypertension Father Myocardial infarction Surgical History History of cholecystectomy Hx of colonoscopy Hx of bladder repair surgery Hx laparoscopic cholecystectomy Hx of bariatric surgery Hx of total knee arthroplasty Hx of total knee arthroplasty H/O: hysterectomy Social History household members: spouse current occupational status: employed current occupation: Parttime [employer] Smoking Status: Never smoker alcohol intake: never substance use type: does not use caffeine: No seatbelt use: always do you feel safe at home: Yes additional social history: - Ray-Retired [employer] Information Additional Findings: EKG Normal sinus rhythm Left axis deviation Review of Systems (Anesthesia) ROS Narrative System reviewed and no additional complaints, except as documented. Physical Exam Const alert and oriented x3 Nutritional Appearance: morbidly obese Resp normal respiratory effort, normal air movement and clear to auscultation bilaterally Cardio regular rate, regular rhythm, no murmurs and diaphoretic
--- NOTE | 2024-06-09 12:30 | EGD_PTH ---
PATIENT: JONELLE RUIZ LOC: EN U#:[id number] AGE/SX: 64/F ROOM: RE06/09/[address]: Dr. Rayo Celaya DO : 1960 BED: DIS: 06/09/2024 SPEC #: [id number] RECD: 06/09/24 13:51 STATUS: GAURANG RECharlie #: [id number] DEEPIKA: 06/09/24 12:[address]: Rayo Celaya DEPT: SURGICAL PATHOLOGY RECD BY: Ney Milner ENTERED: 06/09/24 13:51 SP TYPE: EGD BIOPSY JESSIE DR: Dr. Toan Moore MD Tissues: A - Gastric mucous membrane B - Duodenum, NOS Procedures: Immunohistochemical Stains Surgery Specimen Level IV HEADER OPERATION: EGD, biopsy PRE-OP DIAGNOSIS: Epigastric abdominal pain TISSUE SUBMITTED: A- Gastric antrum biopsy, B- Duodenum biopsy MICROSCOPIC DIAGNOSIS A: STOMACH, ANTRUM, BIOPSY: * Chronic gastritis with features of reactive gastropathy. * IHC is negative for H pylori. B: DUODENUM, BIOPSY: * Normal villous morphology with no specific pathologic change. * Negative for increased intraepithelial lymphocytes. MICROSCOPIC DESCRIPTION Slides are reviewed. Matched control(s) reacted appropriately. GROSS DESCRIPTION A. Received in fixative is one container labeled with the patient's name and designated Gastric antrum biopsy. The specimen consists of two irregular fragments of light shaw soft tissue that in aggregate measure 0.7 x 0.4 x 0.2 cm. The specimen is totally submitted in one cassette. B. Received in fixative is one container labeled with the patient's name and designated Duodenum biopsy. The specimen consists of one irregular fragment of light shaw soft tissue that measures 0.7 x 0.5 x 0.1 cm. The specimen is totally submitted in one cassette. 06/09/2024 CPT:67439k4,82597
--- NOTE | 2024-06-09 12:52 | OP.CCLET_ITS ---
06/09/2024 Toan Moore MD [address] [place] [address] Re : Upper GI endoscopy procedure for Lorevincent Mann Dear Dr. Moore This procedure was performed on May. My impressions and recommendations are as follows: Impressions : - Normal esophagus. - A sleeve gastrectomy was found, characterized by erythema. Biopsied. - Erythematous duodenopathy. Biopsied. Recommendations : - Await pathology results. - Continue present medications. My findings are described in the full procedure note, which is enclosed. If I can be of further assistance, please feel free to contact me at . Sincerely, Rayo Celaya, 06/09/2024 12:51:41 PM This report has been signed electronically.
--- NOTE | 2024-06-09 12:52 | OP.EGD_ITS ---
Patient Name: Lore Mann Procedure Date: 06/09/2024 11:52 AM Date of : 1960 Age: 64 Procedure: Upper GI endoscopy Indications: Epigastric abdominal pain Providers: Rayo Celaya DO Referring MD: Toan Moore MD Medicines: Monitored Anesthesia Care Patient Profile: This is a 64 year old female. Refer to note in patient chart for documentation of history and physical. Patient has symptoms of chronic epigastric abdominal pain. She is status post laparoscopic sleeve gastrectomy. Complications: No immediate complications. Procedure: Pre-Anesthesia Assessment: - Prior to the procedure, a History and Physical was performed, and patient medications and allergies were reviewed. The patient is competent. The risks and benefits of the procedure and the sedation options and risks were discussed with the patient. All questions were answered and informed consent was obtained. Patient identification and proposed procedure were verified by the physician in the pre-procedure area. Mental Status Examination: normal. Airway Examination: normal oropharyngeal airway and neck mobility. Respiratory Examination: clear to auscultation. CV Examination: normal. Prophylactic Antibiotics: The patient does not require prophylactic antibiotics. Prior Anticoagulants: The patient has taken no anticoagulant or antiplatelet agents. ASA Grade Assessment: II - A patient with mild systemic disease. After reviewing the risks and benefits, the patient was deemed in satisfactory condition to undergo the procedure. The anesthesia plan was to use monitored anesthesia care (MAC). Immediately prior to administration of medications, the patient was re-assessed for adequacy to receive sedatives. The heart rate, respiratory rate, oxygen saturations, blood pressure, adequacy of pulmonary ventilation, and response to care were monitored throughout the procedure. The physical status of the patient was re-assessed after the procedure. After obtaining informed consent, the endoscope was passed under direct vision. Throughout the procedure, the patient's blood pressure, pulse, and oxygen saturations were monitored continuously. The Endoscope was introduced through the mouth, and advanced to the second part of duodenum. The upper GI endoscopy was accomplished without difficulty. The patient tolerated the procedure well. Scope In: 12:36:20 PM Scope Out: 12:41:15 PM Total Procedure Duration Time 0 hours 4 minutes 55 seconds Findings: The examined esophagus was normal. Evidence of a sleeve gastrectomy was found in the gastric body. This was characterized by erythema. Biopsies were taken with a cold forceps for histology. Mildly erythematous mucosa without active bleeding and with no stigmata of bleeding was found in the first portion of the duodenum. Biopsies were taken with a cold forceps for histology. Impression: - Normal esophagus. - A sleeve gastrectomy was found, characterized by erythema. Biopsied. - Erythematous duodenopathy. Biopsied. Recommendation: - Await pathology results. - Continue present medications. Procedure Code(s): --- Professional --- 59715, Esophagogastroduodenoscopy, flexible, transoral; with biopsy, single or multiple CPT copyright 2021 [employer]. All rights reserved. The codes documented in this report are preliminary and upon hop grower review may be revised to meet current compliance requirements. Rayo Celaya DO 06/09/2024 12:51:41 PM This report has been signed electronically. Number of Addenda: 0 Note Initiated On: 06/09/2024 11:52 AM
--- NOTE | 2024-06-09 13:05 | PCM.POST.ANE ---
Anesthesia: Postop Eval I Current Vital Signs Temperature: 97.7 F Pulse Rate: 90 Blood Pressure: 120/77 Respiratory Rate: 18 Pulse Ox: 95 Oxygen Delivery Method: Room Air Assessment Airway patent: Yes Spontaneous unlabored respirations: Yes Mental status: Awake and Calm nausea: No Vomiting: No Anesthesia Complication: No Fluid Hydration Crystalloid volume administer (ml): 30 Total IV fluid infused: 30 Progress Note Anesthesia document: Postop Eval 1 completed: Yes
--- NOTE | 2024-06-09 13:16 | PCM.PN.BLA ---
Progress Note Patient underwent an upper endoscopy. She was noted to have findings consistent with subtotal gastrectomy. We did the test to all day because she was having abdominal pain. The study was grossly normal but findings may be consistent with scar tissue. I will order CT scan abdomen pelvis as an outpatient.
--- NOTE | 2024-06-09 14:56 | PCM.POSTANE2 ---
Anesthesia Postop Eval I Sum Postop Eval Completion status Anesthesia document: Postop Eval 1 completed: Yes Anesthesia Postop Eval I Summary Anesthesia Postop Eval I Summary: Anesthesia Postop Eval I: Assessment Summary Airway patent Yes 06/09/24 13:05 [email or web address] Spontaneous unlabored Yes 06/09/24 13:05 [email or web address] respirations Mental status Awake,Calm 06/09/24 13:05 [email or web address] nausea No 06/09/24 13:05 [email or web address] Vomiting No 06/09/24 13:05 [email or web address] Anesthesia Postop Eval I: Fluid Summary Crystalloid volume administer 30 06/09/24 13:05 [email or web address] (ml) Colloids volume administered ( ml) Blood Product volume administered (ml) Total IV fluid infused 30 06/09/24 13:05 [email or web address] Anesthesia Postop Eval I: Summary Notes Anesthesia Complication No 06/09/24 13:05 [email or web address] Anesthesia Complication Comment: Post-operative progress note Anesthesia: Postop Eval II Evaluation Mental status: Awake Pain Level: 0 nausea: No Vomiting: No Complications Anesthesia Complication: No
== END 2024-06-09 13:35 | disposition home or self-care (01) ==
LOC: EN 11:10 → AC 11:12
PROVIDERS: PCP Family Medicine Geriatric Medicine; Referring Provider Family Medicine Geriatric Medicine; Visit Provider Internal Medicine Gastroenterology
PROC: 0DJ08ZZ Inspection of Upper Intestinal Tract, Via Natural or Artificial Opening Endoscopic (ICD-10-PCS; CPT 43235; principal; 2024-06-09 12:25)
DX: K29.50 Unspecified chronic gastritis without bleeding (principal); E66.01 Morbid (severe) obesity due to excess calories; E11.9 Type 2 diabetes mellitus without complications; R10.13 Epigastric pain; K21.9 Gastro-esophageal reflux disease without esophagitis; I10 Essential (primary) hypertension; Z90.3 Acquired absence of stomach [part of]
CPT/HCPCS: 43239; 88305; 88342; A4216; J2405

== ENCOUNTER → 2024-10-26 | Outpatient (CLI) | payer MEDICARE, SELFPAY ==
[2024-10-26 10:33] LABS: Hematocrit 36.2 % (37-47); Hemoglobin 10.9 g/dL (12.0-15.0); Immature Granulocytes Count 0.040 X10^3/uL (0.0-0.0); Mean Corp Hgb Conc 30.1 g/dL (32-36); Mean Corpuscular Volume 76.5 fL (81-99); Mean Platelet Vol. 9.8 fl (6.2-12.0); NRBC Flagged by Analyzer 0 % (0-5); Platelet Count 355 K/mm3 (150-450); RBC Distribution Width CV 17.6 % (11.6-14.6); RBC Distribution Width SD 48.4 fl (35.1-43.9); Red Blood Count 4.73 M/mm3 (4.2-5.4); White Blood Count 8.9 K/mm3 (4.4-11.0)
--- NOTE | 2024-10-26 11:20 | RAD_ITS ---
PROCEDURE: L/S SPINE MIN 4 VIEWS 10/26/2024 REASON FOR EXAM: R LUMBOSACRAL RADICULOPATHY TECHNIQUE: L/S SPINE MIN 4 VIEWS COMPARISON: No FINDINGS: Clear lung bases. No free air. Status post cholecystectomy. Severe diffuse facet arthritis. Grade 1 anterolisthesis L4 on L5 and L5 on S1. Multilevel mild disc space narrowing most pronounced L1-L2. No acute bone or soft tissue pathology. RAD/L/S Spine Min 4 Views IMPRESSION: Lumbar spine degeneration. [facility]
[2024-10-26 11:58] LABS: AST(SGOT) 27 U/L (<=31); Alanine Aminotransfer ALT/SGPT 19 U/L (<=34); Albumin, Serum 3.9 g/dL (3.4-4.8); Alkaline Phosphatase 115 U/L (35-104); Anion Gap 12 (5-15); BUN 12 mg/dL (4-19); BUN/Creat Ratio 15.4 RATIO (10-20); CORTISOL AM 7.57 ug/dL (6.02-18.40); Calcium,Total 9.5 mg/dL (7.6-11.0); Carbon Dioxide 26.9 mmol/L (21.0-32.0); Chloride 101 mmol/L (98-108); Cholesterol 170 mg/dL (<=200); Globulin 3.5 g/dL (2.2-4.2); Glucose 138 mg/dL (70-99); Low Density Lipoprotein Calc. 98 mg/dL; Potassium 3.6 mmol/L (3.3-5.1); Triglycerides 90 mg/dL; Very Low Density Lipoprotein 18 mg/dL (5-40); cholesterol:hdl ratio screen 3.15
[2024-10-26 12:29] LABS: Microalbumin,Random Urine < 12.0 mg/L (<20 mg/L)
[2024-10-26 13:41] LABS: Creatinine, Urine (random) 99.20 mg/dL (28.00-217.00)
== END | disposition home or self-care (01) ==
PROVIDERS: PCP Family Medicine Geriatric Medicine; Referring Provider Family Medicine Geriatric Medicine; Visit Provider Family Medicine Geriatric Medicine
DX: M54.17 Radiculopathy, lumbosacral region (principal); E66.01 Morbid (severe) obesity due to excess calories; I10 Essential (primary) hypertension; E24.9 Cushing's syndrome, unspecified; E78.5 Hyperlipidemia, unspecified
CPT/HCPCS: 36415; 72110; 80053; 80061; 82043; 82533; 82570; 82627; 83036; 84443; 85025; 82626